=== PATIENT | male | born 1955 | race Caucasian/White ===

== ENCOUNTER 2020-05-23 10:49 | Inpatient (IN) ==
--- NOTE | 2020-05-23 11:42 | ERNOTE ---
Neuro HPI ER Record Date of Service: 05/23/20 Presenting Symptoms: confusion, falling Time Seen by Provider: 05/23/20 11:30 Source: patient, family, RN notes reviewed, past records Exam Limitations: clinical condition Immunizations: IMMUNIZATION HX Immunizations Up to Date Yes History of Influenza Vaccine No Hx Pneumococcal Vaccination Yes Allergies/Adverse Reactions: Allergies Allergy/AdvReac Type Severity Reaction Status Date / Time Penicillins Allergy Severe upper Verified 05/23/20 10:59 airway edema, hives Home Medications: HOME MEDICATIONS diphenoxylate-atropine 2.5 mg-0.025 mg tablet 2.5 mg PO QID PRN tab 07/06/18 [Last Taken Unknown] loperamide 2 mg tablet 2 mg PO Q1-4H PRN 07/06/18 [Last Taken Unknown] omeprazole 40 mg capsule,delayed release 40 mg PO DAILY 07/06/18 [Last Taken Unknown] ropinirole 3 mg tablet 3 mg PO TID 07/06/18 [Last Taken Unknown] amlodipine 5 mg tablet 5 mg PO DAILY 08/17/19 [Last Taken Unknown] magnesium citrate 100 mg tablet 100 mg PO DAILY 08/17/19 [Last Taken Unknown] Liraglutide [Victoza 2-Johnathan] 0.3 ml SQ DAILY 10/18/19 [Last Taken Unknown] Lisinopril/Hydrochlorothiazide [Lisinopril-Hctz 10-12.5 mg Tab] 1 ea PO DAILY 10/18/19 [Last Taken Unknown] cyclobenzaprine 10 mg tablet 10 mg PO QID #120 tab 03/08/20 [Last Taken Unknown] cyclobenzaprine 5 mg tablet 5 mg PO QID #120 tab 03/08/20 [Last Taken Unknown] diclofenac sodium 1 % topical gel 2 g TP QID #200 g 03/08/20 [Last Taken Unknown] naloxone 4 mg/actuation nasal spray 4 mg JAM Q2M PRN #2 ea 03/08/20 [Last Taken Unknown] pregabalin 100 mg capsule 100 mg PO TID #90 cap 03/11/20 [Last Taken Unknown] fluconazole 200 mg tablet 200 mg PO DAILY #10 tab 04/03/20 [Last Taken Unknown] aripiprazole 5 mg tablet 5 mg PO HS #30 tab 04/11/20 [Last Taken Unknown] bupropion HCl 300 mg 24 hr tablet, extended release 300 mg PO QAM #30 tab 04/11/20 [Last Taken Unknown] duloxetine 60 mg capsule,delayed release 60 mg PO BID #60 cap 04/11/20 [Last Taken Unknown] oxycodone-acetaminophen 7.5 mg-325 mg tablet 1 tab PO QID #120 tab 04/16/20 [Last Taken Unknown] dapagliflozin 10 mg tablet 10 mg PO DAILY #30 tab 04/18/20 [Last Taken Unknown] dicyclomine 10 mg capsule 20 mg PO QID #60 cap 05/09/20 [Last Taken Unknown] Topiramate [Topiramate ER] 25 mg PO DAILY 05/20/20 [Last Taken Unknown] morphine 15 mg immediate release tablet 15 mg PO TID PRN #21 tab 05/21/20 [Last Taken Unknown] - History of Present Illness Narrative: Chilango is a 64-year-old male brought to the emergency department from home by ambulance for altered mental status. He underwent a right shoulder arthroscopy with rotator cuff repair on 05/20/[address] Judd. His reports that his mentation was normal when he went home from ambulatory surgery that day. He has since become increasingly confused and has been having some falls. He did not recognize his when he woke up this morning and called her a rat. He is chronically on opiate pain medications. The states that he has not had any pain medicine since last evening. He was given Narcan by EMS with brief improvement. He is currently disoriented and uncooperative. He is unable to provide any history. Onset: gradual onset, continues in ER - Character of Deficits Additional Deficits: Present: falling Baseline Cognition: Present: alert but confused Baseline Gait: Present: walks w/o assistance Prior Treament: Reports: recently seen - surgery on 05/20, similar symptoms before - with low magnesium level Review of Systems - Narrative Narrative: Unable to obtain ROS d/t patient condition Medical History (Last Reviewed 05/23/20 @ 14:13 by Iza Heck NP) Acute kidney injury (Acute) Onset Date: Unknown Adjustment disorder with depressed mood (Acute) Onset Date: Unknown Aortic stenosis (Acute) Onset Date: Unknown Atypical chest pain (Acute) Onset Date: Unknown Fracture of hip, right, closed (Acute) Onset Date: Unknown Diabetes mellitus, type II (Chronic) Onset Date: Unknown Diarrhea (Acute) Onset Date: Unknown Facet arthropathy (Acute) Onset Date: Unknown Fracture, femur, head (Acute) Onset Date: Unknown Glaucoma (Acute) Onset Date: Unknown Gout (Acute) Onset Date: Unknown Heart murmur (Acute) Onset Date: Unknown Hyperlipidemia (Chronic) Onset Date: Unknown Hypertension (Acute) Onset Date: Unknown Iron deficiency anemia (Acute) Onset Date: Unknown Lumbago (Chronic) Onset Date: Unknown Osteoarthritis, knee (Acute) Onset Date: Unknown TOO (obstructive sleep apnea) (Acute) Onset Date: Unknown Osteoarthritis of right hip (Acute) Onset Date: Unknown Psychosis (Acute) Onset Date: Unknown Short bowel syndrome (Acute) Onset Date: Unknown Small bowel obstruction (Acute) Onset Date: Unknown Snoring (Acute) Onset Date: Unknown Subclavian steal syndrome (Acute) Onset Date: Unknown Syncope and collapse (Acute) Onset Date: Unknown Tachycardia (Acute) Onset Date: Unknown Fibromyalgia Onset Date: Unknown Surgical History: Surgical History (Last Reviewed 05/23/20 @ 14:13 by Iza Heck NP) H/O arthroscopy of left knee Onset Date: ~1977 H/O colectomy Onset Date: ~03/28/[address] Trevor Rivera H/O exploratory laparotomy Onset Date: ~08/10/[address] chester Leija H/O hernia repair Onset Date: ~1954 bilateral History of appendectomy Onset Date: Unknown History of total hip arthroplasty Onset Date: ~06/29/14 Right total hip arthroplasty per Dr Servando Coleman Hx of tonsillectomy Onset Date: Unknown Hx of total knee arthroplasty Onset Date: ~08/02/09 arthroplasty right knee unicompartmental per Dr Servando Coleman Family History: Family History (Last Reviewed 05/23/20 @ 14:13 by Iza Heck NP) Mother Diabetes Heart disease Father Diabetes Myocardial infarction Heart disease Substance abuse Brother 3-DM, HTN athritis 1-heart disease Brother 1-infant crib Son 1-arthritis, 1-healthy, 1-unknown Daughter 1-healthy, 1 OD Son 1-crib Social History: (Last Reviewed 05/23/20 @ 14:13 by Iza Heck NP) Social History: Marital status: household members: spouse current occupational status: disabled current occupation: disabled Highest level of school completed/degree received: GED or equivalent Service: Yes branch: [employer] Tobacco: Smoking Status: Current every day smoker Smoking Status comment: 1ppd or more tobacco type: cigarettes Smoking cigarettes per day: 20.0 Smoking packs per day: 1 Alcohol: alcohol intake: former alcohol intake frequency: holiday/special occasion Substance Use: substance use type: former substance user Dietary Habits: caffeine: Yes Type: carbonated beverages Physical Exam - Physical Exam General Appearance: Present: wd/wn, alert, mild distress, other - agitated, Eye Exam: PERRL: bilateral - pinpoint, EOMI: bilateral Respiratory: Present: no respiratory distress, normal breath sounds, no accessory muscle use, lungs clear Cardiovascular/Chest: Present: no murmur, normal peripheral pulses, tachycardia Gastrointestinal/Abdominal: Present: nondistended, soft Extremity Exam: Present: normal except - - Right upper extremity in immobilizer, surgical dressing in place to shoulder, normal radial pulse, fingers with brisk cap refill Neurological Exam: Present: alert, other - states "get me the fuck out of here", pulling at lines, restless. Absent: oriented, normal mood/affect Skin Exam: Present: normal color, warm/dry, other - excoriated wound present to midline lower abdomen without signs of infection Progress - Results and Orders Patient's Lab Results:: I have reviewed the patient's lab results. - Vital Signs Patient's Vital Signs:: I have reviewed the patient's vital signs. Vital Signs: Vital Signs 05/23/20 10:54 05/23/20 11:19 Temperature 36.9 C Pulse Rate 113 H 111 H Respiratory Rate 19 Blood Pressure 170/73 H O2 Sat by Pulse Oximetry 96 - EKG EKG #1 EKG: other - Sinus tach, rate 111 EKG read: Reviewed by me - CT/Ultrasound CT/Ultrasound Narrative: Head CT is without acute intracranial findings per radiologist report - Progress/Reassessment Chief Complaint: Altered Mental Status Progress:: Unchanged Plan - Plan Plan: Head CT is without acute findings, glucose in urine but blood glucose is in 200's, mildly elevated WBC and K+ slightly low at 3.3, urine drug screen positive for opiates, ETOH neg. Patient remains disoriented. Dr. Willams was contacted and agreed to admit the patient for further evaluation and monitoring. CHELSI Sullivan (orthopedics) also notified d/t the patient's surgery 3 days ago. Departure Clinical Impression: Altered mental status Qualifiers: Altered mental status type: disorientation Qualified Code(s): R41.0 - Disorientation, unspecified - Departure Disposition: Still a patient Condition: Stable Referrals: Emir Rodriguez MD [Primary Care Provider] -
[2020-05-23 12:14] LABS: Hematocrit 31.1 % (42.0-52.0); Hemoglobin 11.2 gm/dL (13.5-18.0); Mean Cell Volume 119.6 fl (78-100); Mean Corpuscular Hemoglobin 43.1 pg (27-31); Mean Platelet Volume 9.2 fl (8-11.3); NRBC# 0.1 k/mm3 (0-1); Neutrophil # 10.3 K/mm3 (1.3-6.0); Neutrophil % 81.1 % (42-75.0); Platelet Count 367 K/mm3 (150-450); Red Cell Distribution Width 14.6 % (11.5-14.0); White Blood Count 12.7 K/mm3 (4.0-10.5)
[2020-05-23 12:30] LABS: ALT 26 U/L (19-67); AST 36 U/L (0-48); Albumin * 3.3 gm/dl (3.4-5.0); Alkaline Phosphatase * 69 U/L (50-170); Anion Gap 11.8 mmol/L (6.8-13.8); BUN/Creatinine Ratio 25.8 (9.0-21.6); Bilirubin, Total 0.7 mg/dL (0.0-1.1); Blood Urea Nitrogen 33 mg/dL (6-23); Ca. Corrected For Albumin 9.3 mg/dL (8.4-10.2); Calcium * 9.1 mg/dL (7.9-10.9); Carbon Dioxide 28.5 mmol/L (24-32.6); Chloride 104 mmol/L (97-106); Glucose * 213 mg/dL (70-110); Magnesium 1.7 mg/dL (1.2-2.8); Potassium 3.3 mmol/L (3.4-4.6); Sodium 141 mmol/L (132-142); Total Protein 7.2 gm/dL (6.2-8.2)
[2020-05-23 13:15] LABS: Urine Bilirubin Negative (NEGATIVE); Urine Ketone 5 mg/dL (NEGATIVE); Urine Nitrite Negative (NEGATIVE); Urine Protein 30 mg/dL (NEGATIVE); Urine Specific Gravity 1.015 SP.GR. (1.005-1.030); Urine Urobilinogen Normal (NORMAL); Urine pH 7.5 pH (5.0-7.0)
[2020-05-23 13:26] LABS: Urine Appearance Clear (CLEAR); Urine Bacteria TRACE; Urine Blood 5 /ul (NEGATIVE); Urine Color Yellow; Urine RBC 0-5 /hpf (0-5); Urine WBC TRACE /hpf (0-5)
[2020-05-23 13:32] LABS: Cocaine Ur Negative (NEGATIVE); Urine Barbiturate Negative (NEGATIVE); Urine Benzodiazepines Negative (NEGATIVE); Urine PCP Negative (NEGATIVE); Urine THC Negative (NEGATIVE)
[2020-05-23 13:35] LABS: Urine Opiates Positive (NEGATIVE)
[2020-05-23 17:11] LABS: TSH * 0.129 uIU/mL (0.358-3.74)
[2020-05-23 17:19] LABS: Troponin I 0.256 ng/mL (0.00-0.10)
[2020-05-23] MEDS: DILTIAZEM HCL 120 MG CAP.SR.24H PO SCH (17:39)
--- NOTE | 2020-05-23 17:50 | HP ---
Chief Complaint - Chief Complaint Date of Service: 05/23/20 Chief Complaint: Confusion History of Present Illness: Chilango is a 64-year-old diabetic male brought to the emergency department from home by ambulance for altered mental status. He underwent a right shoulder arthroscopy with rotator cuff repair on 05/20/[address] Judd. His reports that his mentation was normal when he went home from ambulatory surgery that day. He takes Percocet four times daily for chronic pain. Sánchez Orellana, ortho, prescribed immediate release morphine 30 mg as needed for post op pain. He has since become increasingly confused and has been having some falls. He did not recognize his when he woke up this morning and called her a rat. The states that he has not had any pain medicine since last evening. He was given Narcan by EMS with brief improvement. In the ER he was disoriented and uncooperative. He was and is unable to provide any history. At 1730 today his nurse reported his mentation had worsened and that he had become combative. For this reason I prescribed IM as needed Haldol. He has a history of TOO and mild to moderate aortic stenosis. In June of 2018 "psychosis" was entered into his [facility] office chart problem list by a nurse. Details as yet unknown. is not present. Patient can provide no useful history. His brain CT today was unremarkable. His wbc cell count was borderline high, his potassium borderline low, his urine normal except for glucose, his hgb was borderline low, but he has chronic anemia, and his random blood sugar was a little over 200 Aside from his qid opiate, he chronically takes a long list of medications, any one of which by itself could interfere with thinking: aripiprazole, cyclobenzaprine, dicyclomine, diphenoxylate, loperamide, pregabalin, ropinirole, topiramate and trazodone. Add to that he is 64 years old and just underwent surgery with general and regional anesthetic, and this delerium is most likely multifactorial. Added to the mix is the aforementioned recent addition of immediate release morphine. We will repeat a CBC and CMP in the morning. We will check a troponin and TSH and blood gases now. We will obtain a brain MRI and an EEG. Otherwise the plan is to stop or minimize centrally acting medications and wait for his sensorium to clear, which may take three or four days. I contacted Dr. Judd who said he did not at present recommend any post op venous thrombosis prophylaxis. We will check fingerstick blood sugars. Medications which he takes believed to cause of prolong delerium: Analgesics: opiates Anticholinergics: atropine, cyclobenzaprine, bentyl, aripiprazole Anticonvulsants: pregabalin, topiramate Dopamine agonists: ropinirole GI agents: loperamide Hypnotics: trazodone So far, no sign of infection or metabolic derangements. No history of head injury. No physical evidence so far of seizures. No sign of organ failure. It is not uncommon for older hospitalized patients to develop delerium and/or with surgery and/or with anesthesia Medical History (Last Reviewed 05/23/20 @ 17:43 by Emir Rodriguez MD) Acute kidney injury (Acute) Onset Date: Unknown Adjustment disorder with depressed mood (Acute) Onset Date: Unknown Aortic stenosis (Acute) Onset Date: Unknown Atypical chest pain (Acute) Onset Date: Unknown Fracture of hip, right, closed (Acute) Onset Date: Unknown Diabetes mellitus, type II (Chronic) Onset Date: Unknown Diarrhea (Acute) Onset Date: Unknown Facet arthropathy (Acute) Onset Date: Unknown Fracture, femur, head (Acute) Onset Date: Unknown Glaucoma (Acute) Onset Date: Unknown Gout (Acute) Onset Date: Unknown Heart murmur (Acute) Onset Date: Unknown Hyperlipidemia (Chronic) Onset Date: Unknown Hypertension (Chronic) Onset Date: Unknown Iron deficiency anemia (Chronic) Onset Date: Unknown Lumbago (Chronic) Onset Date: Unknown Osteoarthritis, knee (Acute) Onset Date: Unknown TOO (obstructive sleep apnea) (Chronic) Onset Date: Unknown Osteoarthritis of right hip (Acute) Onset Date: Unknown Psychosis (Acute) Onset Date: Unknown Short bowel syndrome (Acute) Onset Date: Unknown Small bowel obstruction (Acute) Onset Date: Unknown Snoring (Acute) Onset Date: Unknown Subclavian steal syndrome (Acute) Onset Date: Unknown Syncope and collapse (Acute) Onset Date: Unknown Tachycardia (Acute) Onset Date: Unknown Fibromyalgia Onset Date: Unknown Surgical History: Surgical History (Last Reviewed 05/23/20 @ 17:43 by Emir Rodriguez MD) H/O arthroscopy of left knee Onset Date: ~1977 H/O colectomy Onset Date: ~03/28/[address] Trevor Rivera H/O exploratory laparotomy Onset Date: ~08/10/[address] chester Leija H/O hernia repair Onset Date: ~1954 bilateral History of appendectomy Onset Date: Unknown History of total hip arthroplasty Onset Date: ~06/29/14 Right total hip arthroplasty per Dr Servando Coleman Hx of tonsillectomy Onset Date: Unknown Hx of total knee arthroplasty Onset Date: ~08/02/09 arthroplasty right knee unicompartmental per Dr Servando Coleman Family History: Family History (Last Reviewed 05/23/20 @ 17:43 by Emir Rodriguez MD) Mother Diabetes Heart disease Father Diabetes Myocardial infarction Heart disease Substance abuse Brother 3-DM, HTN athritis 1-heart disease Brother 1-infant crib Son 1-arthritis, 1-healthy, 1-unknown Daughter 1-healthy, 1 OD Son 1-crib Social History: (Last Reviewed 05/23/20 @ 17:43 by Emir Rodriguez MD) Social History: Marital status: household members: spouse current occupational status: disabled current occupation: disabled Highest level of school completed/degree received: GED or equivalent Service: Yes branch: [employer] Tobacco: Smoking Status: Current every day smoker Smoking Status comment: 1ppd or more tobacco type: cigarettes Smoking cigarettes per day: 20.0 Smoking packs per day: 1 Alcohol: alcohol intake: former alcohol intake frequency: holiday/special occasion Substance Use: substance use type: former substance user Dietary Habits: caffeine: Yes Type: carbonated beverages Review Of Systems (GEN) - Review of Systems Generalized/Overall Review: Present: No Symptoms Reported - patient unable to do a review of symptoms due to delerium. Immunizations: IMMUNIZATION HX Immunizations Up to Date Yes History of Influenza Vaccine No Hx Pneumococcal Vaccination Yes Allergies/Adverse Reactions: Allergies Allergy/AdvReac Type Severity Reaction Status Date / Time Penicillins Allergy Severe upper Verified 05/23/20 17:00 airway edema, hives Home Medications: HOME MEDICATIONS diphenoxylate-atropine 2.5 mg-0.025 mg tablet 5 mg PO QID PRN tab 07/06/18 [Last Taken Unknown] loperamide 2 mg tablet 4 mg PO QID PRN 07/06/18 [Last Taken Unknown] omeprazole 40 mg capsule,delayed release 40 mg PO DAILY 07/06/18 [Last Taken Unknown] ropinirole 3 mg tablet 3 mg PO BID 07/06/18 [Last Taken Unknown] amlodipine 5 mg tablet 10 mg PO DAILY 08/17/19 [Last Taken Unknown] Liraglutide [Victoza 2-Johnathan] 0.3 ml SQ DAILY 10/18/19 [Last Taken Unknown] Lisinopril/Hydrochlorothiazide [Lisinopril-Hctz 10-12.5 mg Tab] 12.5 mg PO DAILY 10/18/19 [Last Taken Unknown] diclofenac sodium 1 % topical gel 2 g TP QID #200 g 03/08/20 [Last Taken Unknown] naloxone 4 mg/actuation nasal spray 4 mg JAM Q2M PRN #2 ea 03/08/20 [Last Taken Unknown] pregabalin 100 mg capsule 100 mg PO TID #90 cap 03/11/20 [Last Taken Unknown] fluconazole 200 mg tablet 200 mg PO DAILY #10 tab 04/03/20 [Last Taken Unknown] aripiprazole 5 mg tablet 5 mg PO HS #30 tab 04/11/20 [Last Taken Unknown] bupropion HCl 300 mg 24 hr tablet, extended release 300 mg PO QAM #30 tab 04/11/20 [Last Taken Unknown] duloxetine 60 mg capsule,delayed release 60 mg PO BID #60 cap 04/11/20 [Last Taken Unknown] oxycodone-acetaminophen 7.5 mg-325 mg tablet 1 tab PO QID #120 tab 04/16/20 [Last Taken Unknown] dicyclomine 10 mg capsule 20 mg PO QID #60 cap 05/09/20 [Last Taken Unknown] Topiramate [Topiramate ER] 25 mg PO BID 05/20/20 [Last Taken Unknown] Atorvastatin Calcium [Lipitor] 10 mg PO HS 05/23/20 [Last Taken Unknown] Banophen 25 - 50 mg PO HS PRN 05/23/20 [Last Taken Unknown] Cyclobenzaprine HCl 15 mg PO QID 05/23/20 [Last Taken Unknown] Dapagliflozin Propanediol [Farxiga] 15 mg PO QAM 05/23/20 [Last Taken Unknown] Morphine Sulfate 30 mg PO Q6H PRN 05/23/20 [Last Taken Unknown] Triamcinolone Acetonide [Kenalog 0.1% Cream] 1 appl TP TID 05/23/20 [Last Taken Unknown] predniSONE [Prednisone] 20 mg PO DAILY 05/23/20 [Last Taken Unknown] traZODone HCL [Trazodone HCl] 300 mg PO HS 05/23/20 [Last Taken Unknown] Exam - Exam Vital Signs: Vital Signs - Last Taken Temp 37.1 C 05/23/20 16:20 Pulse 106 H 05/23/20 16:24 Resp 18 05/23/20 16:24 BP 170/99 H 05/23/20 16:24 Pulse Ox 95 05/23/20 16:24 Constitutional: Present: Alert, Well developed, Other - intermittently combative, Obese. Absent: Oriented x3, Cooperative ENT Exam: Present: normal ENT inspection, hearing grossly normal Eye Exam: bilateral eye: normal inspection Neck: Present: normal inspection. Absent: lymphadenopathy (R), lymphadenopathy (L), thyromegaly Back Exam: Present: normal inspection, no CVA tenderness, no vertebral tendernes s Breasts: Present: Other - male Respiratory: Present: lungs clear, no respiratory distress Cardiovascular/Chest: Present: regular rate, rhythm, no gallop, no JVD, no murmur, tachycardia Peripheral Pulses: carotid (R): 1+, carotid (L): 1+ Abdomen: Present: Normal bowel sounds, soft, nontender, nondistended, no hepatospenomegaly, no masses, obese /Rectal: Present: Exam deferred Extremity: Present: normal inspection, normal capillary refill, other - dressing right shoulder Skin Exam: Present: normal color, warm/dry, no cyanosis Lymphatic: Present: no adenopathy Neurologic: Absent: normal mood/affect Appearance: Present: appropriate appearance, neat. Absent: appropriate insight Eye contact: Absent: cooperative, good eye contact, normal speech Thoughts: Present: auditory hallucinations, visual hallucinations, other - he is totally disoriented X3 Diagnostic Studies: Abnormal Lab Results 05/23/20 05/23/20 05/23/20 Range/Units 12:07 12:07 12:57 WBC 12.7 H (4.0-10.5) K/mm3 RBC 2.60 L (4.7-6.0) M/mm3 Hgb 11.2 L (13.5-18.0) gm/dL Hct 31.1 L (42.0-52.0) % MCV 119.6 H (78-100) fl MCH 43.1 H (27-31) pg RDW 14.6 H (11.5-14.0) % Immature Gran % (Auto) 1.10 H (0.001-0.429) % Immature Gran # (Auto) 0.14 H (0.000-0.0310) K/mm3 Neutrophils % 81.1 H (42-75.0) % Lymphocytes % 11.6 L (20-51) % Neutrophils # 10.3 H (1.3-6.0) K/mm3 Lymphocytes # 1.47 L (1.5-3.5) k/mm3 pO2 (83.0-108.0) mmHg HCO3 (21.0-28.0) mmol/L Total CO2 (19.0-24.0) mmol/L Base Excess (-2.0-3.0) mmol/L ABG O2 Sat (Measured) (94.0-98.0) % Plasma Sodium 143 H (130-142) mmol/L Potassium 3.3 L (3.4-4.6) mmol/L BUN 33 H (6-23) mg/dL BUN/Creatinine Ratio 25.8 H (9.0-21.6) Random Glucose 213 H (70-110) mg/dL Troponin I (0.00-0.10) ng/mL Albumin 3.3 L (3.4-5.0) gm/dl TSH (0.358-3.74) uIU/mL Urine Protein 30 H (NEGATIVE) mg/dL Urine Glucose (UA) >=1000 H (NEGATIVE) mg/dL Urine Blood 5 H (NEGATIVE) /ul Urine Opiates Screen (NEGATIVE) 05/23/20 05/23/20 05/23/20 Range/Units 12:57 16:30 16:30 WBC (4.0-10.5) K/mm3 RBC (4.7-6.0) M/mm3 Hgb (13.5-18.0) gm/dL Hct (42.0-52.0) % MCV (78-100) fl MCH (27-31) pg RDW (11.5-14.0) % Immature Gran % (Auto) (0.001-0.429) % Immature Gran # (Auto) (0.000-0.0310) K/mm3 Neutrophils % (42-75.0) % Lymphocytes % (20-51) % Neutrophils # (1.3-6.0) K/mm3 Lymphocytes # (1.5-3.5) k/mm3 pO2 53.7 L (83.0-108.0) mmHg HCO3 29.5 H (21.0-28.0) mmol/L Total CO2 30.8 H (19.0-24.0) mmol/L Base Excess 5.0 H (-2.0-3.0) mmol/L ABG O2 Sat (Measured) 89.2 L (94.0-98.0) % Plasma Sodium (130-142) mmol/L Potassium (3.4-4.6) mmol/L BUN (6-23) mg/dL BUN/Creatinine Ratio (9.0-21.6) Random Glucose (70-110) mg/dL Troponin I 0.256 H* (0.00-0.10) ng/mL Albumin (3.4-5.0) gm/dl TSH 0.129 L (0.358-3.74) uIU/mL Urine Protein (NEGATIVE) mg/dL Urine Glucose (UA) (NEGATIVE) mg/dL Urine Blood (NEGATIVE) /ul Urine Opiates Screen Positive H (NEGATIVE) Laboratory Results WBC 12.7 K/mm3 (4.0-10.5) H 05/23/20 12:07 RBC 2.60 M/mm3 (4.7-6.0) L 05/23/20 12:07 Hgb 11.2 gm/dL (13.5-18.0) L 05/23/20 12:07 Hct 31.1 % (42.0-52.0) L 05/23/20 12:07 MCV 119.6 fl (78-100) H 05/23/20 12:07 MCH 43.1 pg (27-31) H 05/23/20 12:07 MCHC 36.0 g/dl (32-36) 05/23/20 12:07 RDW 14.6 % (11.5-14.0) H 05/23/20 12:07 Plt Count 367 K/mm3 (150-450) 05/23/20 12:07 MPV 9.2 fl (8-11.3) 05/23/20 12:07 Immature Gran % (Auto) 1.10 % (0.001-0.429) H 05/23/20 12:07 Immature Gran # (Auto) 0.14 K/mm3 (0.000-0.0310) H 05/23/20 12:07 Neutrophils % 81.1 % (42-75.0) H 05/23/20 12:07 Lymphocytes % 11.6 % (20-51) L 05/23/20 12:07 Monocytes % 5.0 % (0.0-9) 05/23/20 12:07 Eosinophils % 0.8 % (0.0-3.0) 05/23/20 12:07 Basophils % 0.4 % (0.0-1.0) 05/23/20 12:07 Nucleated RBC % 0.1 k/mm3 (0-1) 05/23/20 12:07 Neutrophils # 10.3 K/mm3 (1.3-6.0) H 05/23/20 12:07 Lymphocytes # 1.47 k/mm3 (1.5-3.5) L 05/23/20 12:07 Monocytes # 0.6 k/mm3 (0.0-1.0) 05/23/20 12:07 Eosinophils # 0.1 k/mm3 (0.0-0.7) 05/23/20 12:07 Absolute Basophils 0.1 k/mm3 (0.0-0.1) 05/23/20 12:07 pCO2 43.3 mmHg (35.0-48.0) 05/23/20 16:30 pO2 53.7 mmHg (83.0-108.0) L 05/23/20 16:30 HCO3 29.5 mmol/L (21.0-28.0) H 05/23/20 16:30 Total CO2 30.8 mmol/L (19.0-24.0) H 05/23/20 16:30 Base Excess 5.0 mmol/L (-2.0-3.0) H 05/23/20 16:30 ABG pH 7.45 (7.35-7.45) 05/23/20 16:30 ABG O2 Sat (Measured) 89.2 % (94.0-98.0) L 05/23/20 16:30 Sodium 141 mmol/L (132-142) 05/23/20 12:07 Plasma Sodium 143 mmol/L (130-142) H 05/23/20 12:07 Potassium 3.3 mmol/L (3.4-4.6) L 05/23/20 12:07 Chloride 104 mmol/L (97-106) 05/23/20 12:07 Carbon Dioxide 28.5 mmol/L (24-32.6) 05/23/20 12:07 Anion Gap 11.8 mmol/L (6.8-13.8) 05/23/20 12:07 BUN 33 mg/dL (6-23) H 05/23/20 12:07 Creatinine 1.28 mg/dL (0.4-1.4) 05/23/20 12:07 Est GFR (Non-Af Amer) 60 mL/min (60-130) D 05/23/20 12:07 BUN/Creatinine Ratio 25.8 (9.0-21.6) H 05/23/20 12:07 Random Glucose 213 mg/dL (70-110) H 05/23/20 12:07 Lactic Acid, Venous 0.8 mmol/L (0.4-2.0) 05/23/20 12:07 Calcium 9.1 mg/dL (7.9-10.9) 05/23/20 12:07 Calcium Adj for Albumin 9.3 mg/dL (8.4-10.2) 05/23/20 12:07 Magnesium 1.7 mg/dL (1.2-2.8) 05/23/20 12:07 Total Bilirubin 0.7 mg/dL (0.0-1.1) 05/23/20 12:07 AST 36 U/L (0-48) 05/23/20 12:07 ALT 26 U/L (19-67) 05/23/20 12:07 Alkaline Phosphatase 69 U/L (50-170) 05/23/20 12:07 Troponin I 0.256 ng/mL (0.00-0.10) H* 05/23/20 16:30 Total Protein 7.2 gm/dL (6.2-8.2) 05/23/20 12:07 Albumin 3.3 gm/dl (3.4-5.0) L 05/23/20 12:07 TSH 0.129 uIU/mL (0.358-3.74) L 05/23/20 16:30 Urine Color Yellow 05/23/20 12:57 Urine Appearance Clear (CLEAR) 05/23/20 12:57 Urine pH 7.5 pH (5.0-7.0) 05/23/20 12:57 Ur Specific Revere 1.015 SP.GR. (1.005-1.030) 05/23/20 12:57 Urine Protein 30 mg/dL (NEGATIVE) H 05/23/20 12:57 Urine Glucose (UA) >=1000 mg/dL (NEGATIVE) H 05/23/20 12:57 Urine Ketones 5 mg/dL (NEGATIVE) 05/23/20 12:57 Urine Blood 5 /ul (NEGATIVE) H 05/23/20 12:57 Urine Nitrate Negative (NEGATIVE) 05/23/20 12:57 Urine Bilirubin Negative mg/dl (NEGATIVE) 05/23/20 12:57 Urine Urobilinogen Normal EU/dl (NORMAL) 05/23/20 12:57 Ur Leukocyte Esterase Negative /ul (NEGATIVE) 05/23/20 12:57 Urine RBC 0-5 /hpf (0-5) 05/23/20 12:57 Urine WBC Trace /hpf (0-5) 05/23/20 12:57 Ur Epithelial Cells Trace /hpf (0-5) 05/23/20 12:57 Urine Bacteria Trace (NONE) 05/23/20 12:57 Urine Culture Comments No culture indicated 05/23/20 12:57 Urine Opiates Screen Positive (NEGATIVE) H 05/23/20 12:57 Barbiturate Screen Negative (NEGATIVE) 05/23/20 12:57 Ur Phencyclidine Scrn Negative (NEGATIVE) 05/23/20 12:57 Urine Amphetamine Negative (NEGATIVE) 05/23/20 12:57 U Benzodiazepines Scrn Negative (NEGATIVE) 05/23/20 12:57 Urine Cocaine Screen Negative (NEGATIVE) 05/23/20 12:57 Urine Marijuana (THC) Negative (NEGATIVE) 05/23/20 12:57 Ethyl Alcohol Less than 3.0 mg/dL (0.0-10.0) 05/23/20 12:07 SARS-CoV-2 (PCR) Not detected (NotDetected) 05/23/20 14:17 Assessment/Plan - Assessment/Plan (1) Acute delirium Assessment: MRI brain. EEG. follow labs. minimize meds. as needed Haldol because he is combative wait for sensorium to clear his delirium diagnosis is characterized by: disturbed attention and awareness has developed over a couple of days disorientation no other explanation obvious at present from his history, may be due to medications in the context of an elderly man who has just had surgery. intermittent beligerent hyperactivity at 1830 today, by phone call between one of his daughters and his nurse, he has had "similar problems" in the past. he had "psychosis" in 2015 or 16 because "[facility] removed all of his medications at onc". he has not done well with some of his past surgeries. one of his daughters has delirium if she receives Versed, and he received Versed for this surgery. Problem: Acute (2) Toxic encephalopathy Assessment: most likely related to medications one way or another Problem: Acute (3) Aftercare following right shoulder joint replacement surgery Problem: Acute (4) Polypharmacy Assessment: minimize centrally acting medications Problem: Chronic (5) Chronically on opiate therapy Assessment: with the recent addition of immediate release morphine. will decrease the total dose of opiate and use tylenol for incidental pain. Problem: Chronic (6) Diabetes mellitus, type II Assessment: we will monitor fingerstick blood sugars. Problem: Chronic Qualifiers: Diabetes mellitus terminal press operator insulin use: without terminal press operator use (7) Hypertension Assessment: heart rate a little fast. 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
[2020-05-23] MEDS: HALOPERIDOL LACTATE 5 MG/ML VIAL IM PRN ×3 (17:53→22:27)
[2020-05-23] MEDS: oxyCODONE HCL/ACETAMINOPHEN 1 TAB TABLET PO PRN (19:35)
[2020-05-24] MEDS: HALOPERIDOL LACTATE 5 MG/ML VIAL IM PRN ×2 (00:56→09:02)
[2020-05-24] MEDS: ACETAMINOPHEN 325 MG TABLET PO PRN ×3 (01:00→19:11)
[2020-05-24] MEDS ORDERED: METOPROLOL TARTRATE 25 MG TABLET PO ONE (01:53)
[2020-05-24] MEDS: oxyCODONE HCL/ACETAMINOPHEN 1 TAB TABLET PO PRN (03:35)
[2020-05-24 06:29] LABS: Hematocrit 36.5 % (42.0-52.0); Hemoglobin 13.1 gm/dL (13.5-18.0); Mean Cell Volume 118.9 fl (78-100); Mean Corpuscular Hemoglobin 42.7 pg (27-31); Mean Corpuscular Hgb Conc 35.9 g/dl (32-36); Mean Platelet Volume 8.8 fl (8-11.3); NRBC# 0.1 k/mm3 (0-1); Neutrophil # 11.1 K/mm3 (1.3-6.0); Neutrophil % 74.1 % (42-75.0); Platelet Count 386 K/mm3 (150-450); Red Blood Count 3.07 M/mm3 (4.7-6.0); Red Cell Distribution Width 14.5 % (11.5-14.0); White Blood Count 14.9 K/mm3 (4.0-10.5)
[2020-05-24 06:46] LABS: BUN/Creatinine Ratio 17.1 (9.0-21.6); Estimated Creat Clear 52.6
[2020-05-24 06:50] LABS: Troponin I 0.98 ng/mL (0.00-0.10)
--- NOTE | 2020-05-24 07:49 | PN ---
Subjective - Date and Time Seen Date: 05/24/20 Time: 06:30 Subjective Narrative: Date of Service: 05/23/20 Chief Complaint: Confusion History of Present Illness: Chilango is a 64-year-old diabetic male brought to the emergency department from home by ambulance yesterday for altered mental status. He underwent a right shoulder arthroscopy with rotator cuff repair on 05/20/[address] Judd. His reported that his mentation was normal when he went home from ambulatory surgery that day. He chronically takes Percocet four times daily for chronic pain. Sánchez Orellana, ortho, prescribed immediate release morphine 30 mg as needed for post op pain. He has since become increasingly confused and has been having some falls. He did not recognize his when he woke up this morning and called her a rat. This morning he knew who he is, who I am and that he is in the hospital in [facility]. He doesn't know the day, the time of day or the date. He doesn't know why he is in the hospital. The stated that he has not had any pain medicine since last evening. He was given Narcan by EMS with brief improvement. In the ER he was disoriented and uncooperative. He was and is unable to provide any history. Last evening he become combative. For this reason I prescribed IM as needed Haldol. He has a history of TOO and mild to moderate aortic stenosis. By telephone this morning his daughter reported he had a similar episode in 2010 while doing some work. It apparently occured suddenly without any provocation. It resulted in hospitalization for 2 weeks at the [facility]. The only thing found then was subclavian steal syndrome. It is unlikely that the subclavian steal resulted in delirium. His brain CT yesterday was unremarkable. His wbc cell count was about 12, 000 and today about 14,000, his potassium was 3 this morning so we will add oral potassium, his urine normal except for glucose, his hgb is borderline low, but he has chronic anemia, and his serum glucose this morning was 218. Blood culture from yesterday is pending. I noticed he hasn't had a CXR yet, so we will do that now. His troponin has steadily increased since yesterday, but his EKGs are stable, and none show infarct or ischemia. He has moderate aortic valve stenosis and presumably CAD, either one of which could elevate troponin. We will continue to follow troponin and EKG. Aside from his qid opiate, he chronically takes a long list of medications, any one of which by itself could interfere with thinking: aripiprazole, cyclobenzaprine, dicyclomine, diphenoxylate, loperamide, pregabalin, ropinirole, topiramate and trazodone. Add to that he is 64 years old and just underwent surgery with general and regional anesthetic, and this delerium is most likely multifactorial. Added to the mix is the aforementioned recent addition of immediate release morphine. Finally, he had an unexplained similar episode in 2010. We will repeat a CBC, troponin, EKG and CMP in the morning. pO2 was slightly low yesterday but because of his agitation he won't leave either supplemental O2 or ink blender in place. We will obtain a brain MRI with anesthesia sedation and an EEG. Otherwise the plan is to stop or minimize centrally acting medications and wait for his sensorium to clear, which may take three or four days. We will add low dose long acting insulin. We will continue to check fingerstick blood sugars. He continues to have moderately severe delirium with agitation and combativeness. We don't yet have a firm reason for this problem. He is absolutely unsafe to be at home at the present time. It will probably take at least 3-4 days for this to clear. In 2010 it took two weeks to clear. Medications which he takes believed to cause of prolong delerium: Analgesics: opiates Anticholinergics: atropine, cyclobenzaprine, bentyl, aripiprazole Anticonvulsants: pregabalin, topiramate Dopamine agonists: ropinirole GI agents: loperamide Hypnotics: trazodone So far, no sign of infection or metabolic derangements. No history of head injury. No physical evidence so far of seizures. No sign of organ failure. It is not uncommon for older hospitalized patients to develop delerium and/or with surgery and/or with anesthesia Objective - Review of Systems Generalized/Overall Review: Reports: No Symptoms Reported - useless as a historian because of his delirium - Vitals Vitals: Last Vital Signs Temp 37.0 C 05/24/20 07:00 Pulse 82 05/24/20 07:00 Resp 20 05/24/20 07:00 BP 156/88 H 05/24/20 07:00 Pulse Ox 94 05/24/20 07:00 - Abnormal Lab Findings Abnormal Lab Findings: Abnormal Lab Results 05/23/20 05/23/20 05/23/20 Range/Units 12:07 12:07 12:57 WBC 12.7 H (4.0-10.5) K/mm3 RBC 2.60 L (4.7-6.0) M/mm3 Hgb 11.2 L (13.5-18.0) gm/dL Hct 31.1 L (42.0-52.0) % MCV 119.6 H (78-100) fl MCH 43.1 H (27-31) pg RDW 14.6 H (11.5-14.0) % Immature Gran % (Auto) 1.10 H (0.001-0.429) % Immature Gran # (Auto) 0.14 H (0.000-0.0310) K/mm3 Neutrophils % 81.1 H (42-75.0) % Lymphocytes % 11.6 L (20-51) % Neutrophils # 10.3 H (1.3-6.0) K/mm3 Lymphocytes # 1.47 L (1.5-3.5) k/mm3 Monocytes # (0.0-1.0) k/mm3 pO2 (83.0-108.0) mmHg HCO3 (21.0-28.0) mmol/L Total CO2 (19.0-24.0) mmol/L Base Excess (-2.0-3.0) mmol/L ABG O2 Sat (Measured) (94.0-98.0) % Plasma Sodium 143 H (130-142) mmol/L Potassium 3.3 L (3.4-4.6) mmol/L Anion Gap (6.8-13.8) mmol/L BUN 33 H (6-23) mg/dL Est GFR (Non-Af Amer) (60-130) mL/min BUN/Creatinine Ratio 25.8 H (9.0-21.6) Random Glucose 213 H (70-110) mg/dL Troponin I (0.00-0.10) ng/mL Albumin 3.3 L (3.4-5.0) gm/dl TSH (0.358-3.74) uIU/mL Urine Protein 30 H (NEGATIVE) mg/dL Urine Glucose (UA) >=1000 H (NEGATIVE) mg/dL Urine Blood 5 H (NEGATIVE) /ul Urine Opiates Screen (NEGATIVE) 05/23/20 05/23/20 05/23/20 Range/Units 12:57 16:30 16:30 WBC (4.0-10.5) K/mm3 RBC (4.7-6.0) M/mm3 Hgb (13.5-18.0) gm/dL Hct (42.0-52.0) % MCV (78-100) fl MCH (27-31) pg RDW (11.5-14.0) % Immature Gran % (Auto) (0.001-0.429) % Immature Gran # (Auto) (0.000-0.0310) K/mm3 Neutrophils % (42-75.0) % Lymphocytes % (20-51) % Neutrophils # (1.3-6.0) K/mm3 Lymphocytes # (1.5-3.5) k/mm3 Monocytes # (0.0-1.0) k/mm3 pO2 53.7 L (83.0-108.0) mmHg HCO3 29.5 H (21.0-28.0) mmol/L Total CO2 30.8 H (19.0-24.0) mmol/L Base Excess 5.0 H (-2.0-3.0) mmol/L ABG O2 Sat (Measured) 89.2 L (94.0-98.0) % Plasma Sodium (130-142) mmol/L Potassium (3.4-4.6) mmol/L Anion Gap (6.8-13.8) mmol/L BUN (6-23) mg/dL Est GFR (Non-Af Amer) (60-130) mL/min BUN/Creatinine Ratio (9.0-21.6) Random Glucose (70-110) mg/dL Troponin I 0.256 H* (0.00-0.10) ng/mL Albumin (3.4-5.0) gm/dl TSH 0.129 L (0.358-3.74) uIU/mL Urine Protein (NEGATIVE) mg/dL Urine Glucose (UA) (NEGATIVE) mg/dL Urine Blood (NEGATIVE) /ul Urine Opiates Screen Positive H (NEGATIVE) 05/23/20 05/24/20 05/24/20 Range/Units 22:50 06:25 06:25 WBC 14.9 H (4.0-10.5) K/mm3 RBC 3.07 L (4.7-6.0) M/mm3 Hgb 13.1 L (13.5-18.0) gm/dL Hct 36.5 L (42.0-52.0) % MCV 118.9 H (78-100) fl MCH 42.7 H (27-31) pg RDW 14.5 H (11.5-14.0) % Immature Gran % (Auto) 0.70 H (0.001-0.429) % Immature Gran # (Auto) 0.10 H (0.000-0.0310) K/mm3 Neutrophils % (42-75.0) % Lymphocytes % 17.3 L (20-51) % Neutrophils # 11.1 H (1.3-6.0) K/mm3 Lymphocytes # (1.5-3.5) k/mm3 Monocytes # 1.1 H (0.0-1.0) k/mm3 pO2 (83.0-108.0) mmHg HCO3 (21.0-28.0) mmol/L Total CO2 (19.0-24.0) mmol/L Base Excess (-2.0-3.0) mmol/L ABG O2 Sat (Measured) (94.0-98.0) % Plasma Sodium 144 H (130-142) mmol/L Potassium 3.0 L (3.4-4.6) mmol/L Anion Gap 16.0 H (6.8-13.8) mmol/L BUN 24 H (6-23) mg/dL Est GFR (Non-Af Amer) 54 L (60-130) mL/min BUN/Creatinine Ratio (9.0-21.6) Random Glucose 218 H (70-110) mg/dL Troponin I 0.602 H* 0.980 H* (0.00-0.10) ng/mL Albumin (3.4-5.0) gm/dl TSH (0.358-3.74) uIU/mL Urine Protein (NEGATIVE) mg/dL Urine Glucose (UA) (NEGATIVE) mg/dL Urine Blood (NEGATIVE) /ul Urine Opiates Screen (NEGATIVE) - Exam Constitutional: Present: Alert, Well developed, Elderly, Obese. Absent: Oriented x3 ENT Exam: Present: normal ENT inspection, hearing grossly normal Neck: Present: normal inspection. Absent: lymphadenopathy (R), lymphadenopathy (L) Breasts: Present: Other - male Respiratory: Present: lungs clear, no respiratory distress Cardiovascular/Chest: Present: regular rate, rhythm, no edema, no gallop, no JVD, no murmur, tachycardia Abdomen: Present: Normal bowel sounds, soft, nontender, nondistended, no hepatospenomegaly, no masses, obese /Rectal: Present: Exam deferred Extremity: Present: normal inspection, normal capillary refill Skin Exam: Present: normal color, warm/dry, no cyanosis Lymphatic: Present: no adenopathy Neurologic: Absent: normal mood/affect Appearance: Present: appropriate appearance, neat. Absent: appropriate insight, no memory impairment Eye contact: Absent: cooperative, good eye contact, normal speech Thoughts: Present: other - knew me and who he was this morning. knew he was in the [facility]. didn't know the day, date, how long he's been here or why he is here.. Absent: normal mood /affect Assessment/Plan - Problems/Diagnosis (1) Acute delirium Problem: Acute Narrative: MRI EEG monitor labs continue with decreased medication monitor for safety Haldol as needed. UA ok. Blood culture pending. wbc count slightly elevated, will do CXR. because of low potassium will add oral supplement. because of slightly elevated rising troponin but non acute EKGs we will continue to monitor troponin and EKG (2) Subclavian steal syndrome Problem: Chronic Narrative: symptoms are not typical for subclavian steal syndrome (3) Toxic encephalopathy Problem: Acute (4) Aftercare following right shoulder joint replacement surgery Problem: Acute (5) Polypharmacy Problem: Chronic (6) Chronically on opiate therapy Problem: Chronic (7) Diabetes mellitus, type II Problem: Chronic Qualifiers: Diabetes mellitus watermelon inspector insulin use: without halfway use (8) Hypertension Problem: Chronic Qualifiers: Hypertension type: essential hypertension Qualified Code(s): I10 - Essential (primary) hypertension (9) BMI 31.0-31.9,adult Problem: Chronic (10) TOO (obstructive sleep apnea) Problem: Chronic (11) Short bowel syndrome Problem: Chronic (12) Tobacco abuse Problem: Chronic (13) Iron deficiency anemia Problem: Chronic Qualifiers: Iron deficiency anemia type: unspecified iron deficiency Qualified Code(s): D50.9 - Iron deficiency anemia, unspecified
[2020-05-24] MEDS: ENOXAPARIN SODIUM 40 MG/0.4 ML SYRG SC SCH (08:03)
[2020-05-24] MEDS: POTASSIUM CHLORIDE 20 MEQ TABLET.SA PO SCH (08:04)
[2020-05-24] MEDS: LISINOPRIL 10 MG TABLET PO SCH (08:04)
[2020-05-24] MEDS: PANTOPRAZOLE SODIUM 40 MG TABLET.EC PO SCH (08:04)
[2020-05-24] MEDS: buPROPion HCL 150 MG TAB.SR.24H PO SCH (08:05)
[2020-05-24] MEDS: INSULIN GLARGINE,HUM.REC.ANLOG 100 UNITS/ML VIAL SC SCH ×2 (08:07→19:52)
[2020-05-24] MEDS ORDERED: ASPIRIN 81 MG TAB.CHEW PO ONE (09:30)
[2020-05-24] MEDS ORDERED: NITROGLYCERIN 0.4 MG/TAB BTL SL PRN (09:31)
[2020-05-24] MEDS ORDERED: LORazepam 2 MG/ML DISP.SYRIN IV PRN (09:43)
[2020-05-24] MEDS ORDERED: HYDROmorphone HCL 1 MG/ML DISP.SYRIN IV PRN (09:43)
--- NOTE | 2020-05-24 10:00 | PN ---
Nely Note - Interim Date: 05/24/20 Time: 09:49 Narrative: 05/24/20 09:49 Came over to see him because his nurse called me and reported he was having severe left anterior chest pain, otherwise not well described. He remains an extremely poor historian. I ordered as needed s.l. nitroglycerin, one baby aspirin, a stat EKG, troponin and D-Dimer. D-Dimer unfortunately may be elevated because of his recent shoulder surgery. By the time I walked over here, he was no longer complaining of chest pain or pain anywhere. He didn't remember having had this morning's chest pain. Since admission to the hospital, he as had three slowly increasing troponin levels, all still less than 1, but his EKGs have been stable, showing mainly tachycardia and occasional PVCs. His EKGs have so far not looked like ischemia or infarct. Troponin and D-dimer from just now are still pending. He has a history of atypical chest pain in the past. Also in a daughter's report to a nurse early this morning, he has intolerance to morphine, which in the past caused mental status changes resulting in a 5 day hospitalization. This morphine information was not reported to us until that phone call this morning. Also, on exam this morning, he appears to have developed tardive dyskinesia, most likely related to Haldol. We will not give further doses of major tranquilizers and switch to benzodiazepines. Except for the motion disorder, physical exam just now remains stable. CXR from this morning is unremarkable. For severe chest pain we will give as needed IV dilaudid. Because his chest pain went away on its own, although he received a baby aspirin, he did not require nitroglycerin.
--- NOTE | 2020-05-24 10:06 | PN ---
Subjective - Date and Time Seen Date: 05/24/20 Time: 09:30 Objective - Vitals Vitals: Last Vital Signs Temp 37.0 C 05/24/20 07:00 Pulse 82 05/24/20 08:04 Resp 20 05/24/20 07:00 BP 156/88 H 05/24/20 08:04 Pulse Ox 94 05/24/20 07:00 Vitals reviewed and are stable. No fever. pulse in the 80s, lowest it's been since admission. BP slightly high. Pulse ox 94 on room air. - Abnormal Lab Findings Abnormal Lab Findings: Abnormal Lab Results 05/23/20 05/23/20 05/23/20 Range/Units 12:07 12:07 12:57 WBC 12.7 H (4.0-10.5) K/mm3 RBC 2.60 L (4.7-6.0) M/mm3 Hgb 11.2 L (13.5-18.0) gm/dL Hct 31.1 L (42.0-52.0) % MCV 119.6 H (78-100) fl MCH 43.1 H (27-31) pg RDW 14.6 H (11.5-14.0) % Immature Gran % (Auto) 1.10 H (0.001-0.429) % Immature Gran # (Auto) 0.14 H (0.000-0.0310) K/mm3 Neutrophils % 81.1 H (42-75.0) % Lymphocytes % 11.6 L (20-51) % Neutrophils # 10.3 H (1.3-6.0) K/mm3 Lymphocytes # 1.47 L (1.5-3.5) k/mm3 Monocytes # (0.0-1.0) k/mm3 pO2 (83.0-108.0) mmHg HCO3 (21.0-28.0) mmol/L Total CO2 (19.0-24.0) mmol/L Base Excess (-2.0-3.0) mmol/L ABG O2 Sat (Measured) (94.0-98.0) % Plasma Sodium 143 H (130-142) mmol/L Potassium 3.3 L (3.4-4.6) mmol/L Anion Gap (6.8-13.8) mmol/L BUN 33 H (6-23) mg/dL Est GFR (Non-Af Amer) (60-130) mL/min BUN/Creatinine Ratio 25.8 H (9.0-21.6) Random Glucose 213 H (70-110) mg/dL Troponin I (0.00-0.10) ng/mL Albumin 3.3 L (3.4-5.0) gm/dl TSH (0.358-3.74) uIU/mL Urine Protein 30 H (NEGATIVE) mg/dL Urine Glucose (UA) >=1000 H (NEGATIVE) mg/dL Urine Blood 5 H (NEGATIVE) /ul Urine Opiates Screen (NEGATIVE) 05/23/20 05/23/20 05/23/20 Range/Units 12:57 16:30 16:30 WBC (4.0-10.5) K/mm3 RBC (4.7-6.0) M/mm3 Hgb (13.5-18.0) gm/dL Hct (42.0-52.0) % MCV (78-100) fl MCH (27-31) pg RDW (11.5-14.0) % Immature Gran % (Auto) (0.001-0.429) % Immature Gran # (Auto) (0.000-0.0310) K/mm3 Neutrophils % (42-75.0) % Lymphocytes % (20-51) % Neutrophils # (1.3-6.0) K/mm3 Lymphocytes # (1.5-3.5) k/mm3 Monocytes # (0.0-1.0) k/mm3 pO2 53.7 L (83.0-108.0) mmHg HCO3 29.5 H (21.0-28.0) mmol/L Total CO2 30.8 H (19.0-24.0) mmol/L Base Excess 5.0 H (-2.0-3.0) mmol/L ABG O2 Sat (Measured) 89.2 L (94.0-98.0) % Plasma Sodium (130-142) mmol/L Potassium (3.4-4.6) mmol/L Anion Gap (6.8-13.8) mmol/L BUN (6-23) mg/dL Est GFR (Non-Af Amer) (60-130) mL/min BUN/Creatinine Ratio (9.0-21.6) Random Glucose (70-110) mg/dL Troponin I 0.256 H* (0.00-0.10) ng/mL Albumin (3.4-5.0) gm/dl TSH 0.129 L (0.358-3.74) uIU/mL Urine Protein (NEGATIVE) mg/dL Urine Glucose (UA) (NEGATIVE) mg/dL Urine Blood (NEGATIVE) /ul Urine Opiates Screen Positive H (NEGATIVE) 05/23/20 05/24/20 05/24/20 Range/Units 22:50 06:25 06:25 WBC 14.9 H (4.0-10.5) K/mm3 RBC 3.07 L (4.7-6.0) M/mm3 Hgb 13.1 L (13.5-18.0) gm/dL Hct 36.5 L (42.0-52.0) % MCV 118.9 H (78-100) fl MCH 42.7 H (27-31) pg RDW 14.5 H (11.5-14.0) % Immature Gran % (Auto) 0.70 H (0.001-0.429) % Immature Gran # (Auto) 0.10 H (0.000-0.0310) K/mm3 Neutrophils % (42-75.0) % Lymphocytes % 17.3 L (20-51) % Neutrophils # 11.1 H (1.3-6.0) K/mm3 Lymphocytes # (1.5-3.5) k/mm3 Monocytes # 1.1 H (0.0-1.0) k/mm3 pO2 (83.0-108.0) mmHg HCO3 (21.0-28.0) mmol/L Total CO2 (19.0-24.0) mmol/L Base Excess (-2.0-3.0) mmol/L ABG O2 Sat (Measured) (94.0-98.0) % Plasma Sodium 144 H (130-142) mmol/L Potassium 3.0 L (3.4-4.6) mmol/L Anion Gap 16.0 H (6.8-13.8) mmol/L BUN 24 H (6-23) mg/dL Est GFR (Non-Af Amer) 54 L (60-130) mL/min BUN/Creatinine Ratio (9.0-21.6) Random Glucose 218 H (70-110) mg/dL Troponin I 0.602 H* 0.980 H* (0.00-0.10) ng/mL Albumin (3.4-5.0) gm/dl TSH (0.358-3.74) uIU/mL Urine Protein (NEGATIVE) mg/dL Urine Glucose (UA) (NEGATIVE) mg/dL Urine Blood (NEGATIVE) /ul Urine Opiates Screen (NEGATIVE) Assessment/Plan - Problems/Diagnosis (1) Chest pain Problem: Acute Qualifiers: Chest pain type: unspecified Qualified Code(s): R07.9 - Chest pain, unspecified Narrative: left sided anterior. gone now. history of atypical chest pain. if there is clear evidence for ischemia or infarct, we will transfer to a hospital with a assistant branch operations manager. we will give aspirin daily. he is an extremely poor historian. (2) Tardive dyskinesia Problem: Acute Narrative: I noticed lip smacking and other facial movements when I came over this morning, most likely related to haldol. Will switch from major tranquilizers to benzodiazepines. (3) Acute delirium Problem: Acute (4) Subclavian steal syndrome Problem: Chronic (5) Toxic encephalopathy Problem: Acute (6) Aftercare following right shoulder joint replacement surgery Problem: Acute (7) Polypharmacy Problem: Chronic (8) Chronically on opiate therapy Problem: Chronic (9) Diabetes mellitus, type II Problem: Chronic Qualifiers: Diabetes mellitus long chain quiller tender insulin use: without long chain quiller tender use (10) Hypertension Problem: Chronic Qualifiers: Hypertension type: essential hypertension Qualified Code(s): I10 - Essential (primary) hypertension (11) BMI 31.0-31.9,adult Problem: Chronic (12) TOO (obstructive sleep apnea) Problem: Chronic (13) Short bowel syndrome Problem: Chronic (14) Tobacco abuse Problem: Chronic (15) Iron deficiency anemia Problem: Chronic Qualifiers: Iron deficiency anemia type: unspecified iron deficiency Qualified Code(s): D50.9 - Iron deficiency anemia, unspecified
[2020-05-24] MEDS ORDERED: HYDROmorphone HCL 1 MG/ML DISP.SYRIN IM PRN (10:27)
--- NOTE | 2020-05-24 10:35 | PN ---
Nely Note - Interim Date: 05/24/20 Time: 10: Narrative: 05/24/20 10:31 Not having chest pain. Diaphoretic. Because of his delirium I had decreased his total daily oxycodone dose from 30 mg to 15 when I admitted him. That may have been too much of a decrease. Will change the oxycodone to 5 mg qid which will be a total daily dose of 20 mg. We will also see how one dose of IM dilaudid will do. If it helps, the working diagnosis of opiate withdrawal is supported. This diagnosis is in addition to all the others we are already working with.
[2020-05-24] MEDS: HYDROCHLOROTHIAZIDE 12.5 MG CAPSULE PO SCH (11:31)
[2020-05-24] MEDS: oxyCODONE HCL/ACETAMINOPHEN 1 TAB TABLET PO SCH ×3 (11:31→21:47)
--- NOTE | 2020-05-24 11:46 | ANES ---
Anesthesia Pre Procedure Eval Vitals/Labs: Last Vital Signs Temp 37.0 C 05/24/20 07:00 Pulse 87 05/24/20 10:48 Resp 20 05/24/20 07:00 BP 156/88 H 05/24/20 08:04 Pulse Ox 94 05/24/20 07:00 HOME MEDICATIONS diphenoxylate-atropine 2.5 mg-0.025 mg tablet 5 mg PO QID PRN tab 07/06/18 [Last Taken Unknown] loperamide 2 mg tablet 4 mg PO QID PRN 07/06/18 [Last Taken Unknown] omeprazole 40 mg capsule,delayed release 40 mg PO DAILY 07/06/18 [Last Taken Unknown] ropinirole 3 mg tablet 3 mg PO BID 07/06/18 [Last Taken Unknown] amlodipine 5 mg tablet 10 mg PO DAILY 08/17/19 [Last Taken Unknown] Liraglutide [Victoza 2-Johnathan] 0.3 ml SQ DAILY 10/18/19 [Last Taken Unknown] Lisinopril/Hydrochlorothiazide [Lisinopril-Hctz 10-12.5 mg Tab] 12.5 mg PO DAILY 10/18/19 [Last Taken Unknown] diclofenac sodium 1 % topical gel 2 g TP QID #200 g 03/08/20 [Last Taken Unknown] naloxone 4 mg/actuation nasal spray 4 mg JAM Q2M PRN #2 ea 03/08/20 [Last Taken Unknown] pregabalin 100 mg capsule 100 mg PO TID #90 cap 03/11/20 [Last Taken Unknown] fluconazole 200 mg tablet 200 mg PO DAILY #10 tab 04/03/20 [Last Taken Unknown] aripiprazole 5 mg tablet 5 mg PO HS #30 tab 04/11/20 [Last Taken Unknown] bupropion HCl 300 mg 24 hr tablet, extended release 300 mg PO QAM #30 tab 04/11/20 [Last Taken Unknown] duloxetine 60 mg capsule,delayed release 60 mg PO BID #60 cap 04/11/20 [Last Taken Unknown] oxycodone-acetaminophen 7.5 mg-325 mg tablet 1 tab PO QID #120 tab 04/16/20 [Last Taken Unknown] dicyclomine 10 mg capsule 20 mg PO QID #60 cap 05/09/20 [Last Taken Unknown] Topiramate [Topiramate ER] 25 mg PO BID 05/20/20 [Last Taken Unknown] Atorvastatin Calcium [Lipitor] 10 mg PO HS 05/23/20 [Last Taken Unknown] Banophen 25 - 50 mg PO HS PRN 05/23/20 [Last Taken Unknown] Cyclobenzaprine HCl 15 mg PO QID 05/23/20 [Last Taken Unknown] Dapagliflozin Propanediol [Farxiga] 15 mg PO QAM 05/23/20 [Last Taken Unknown] Morphine Sulfate 30 mg PO Q6H PRN 05/23/20 [Last Taken Unknown] Triamcinolone Acetonide [Kenalog 0.1% Cream] 1 appl TP TID 05/23/20 [Last Taken Unknown] predniSONE [Prednisone] 20 mg PO DAILY 05/23/20 [Last Taken Unknown] traZODone HCL [Trazodone HCl] 300 mg PO HS 05/23/20 [Last Taken Unknown] Allergies/Adverse Reactions: Allergies Allergy/AdvReac Type Severity Reaction Status Date / Time Penicillins Allergy Severe upper Verified 05/23/20 17:00 airway edema, hives morphine AdvReac Severe Other Verified 05/24/20 02:45 - Planned Procedure Planned Procedure: Altered Mental Status Medication List Reviewed:: Yes Allergies Verified: Yes Medical History (Last Reviewed 05/24/20 @ 11:41 by James Fagan CRNA) Acute kidney injury (Acute) Onset Date: Unknown Adjustment disorder with depressed mood (Acute) Onset Date: Unknown Aortic stenosis (Acute) Onset Date: Unknown Atypical chest pain (Acute) Onset Date: Unknown Fracture of hip, right, closed (Acute) Onset Date: Unknown Diabetes mellitus, type II (Chronic) Onset Date: Unknown Diarrhea (Acute) Onset Date: Unknown Facet arthropathy (Acute) Onset Date: Unknown Fracture, femur, head (Acute) Onset Date: Unknown Glaucoma (Acute) Onset Date: Unknown Gout (Acute) Onset Date: Unknown Heart murmur (Acute) Onset Date: Unknown Hyperlipidemia (Chronic) Onset Date: Unknown Hypertension (Chronic) Onset Date: Unknown Iron deficiency anemia (Chronic) Onset Date: Unknown Lumbago (Chronic) Onset Date: Unknown Osteoarthritis, knee (Acute) Onset Date: Unknown TOO (obstructive sleep apnea) (Chronic) Onset Date: Unknown Osteoarthritis of right hip (Acute) Onset Date: Unknown Psychosis (Acute) Onset Date: Unknown Short bowel syndrome (Acute) Onset Date: Unknown Small bowel obstruction (Acute) Onset Date: Unknown Snoring (Acute) Onset Date: Unknown Subclavian steal syndrome (Chronic) Onset Date: Unknown Syncope and collapse (Acute) Onset Date: Unknown Tachycardia (Acute) Onset Date: Unknown Fibromyalgia Onset Date: Unknown Surgical History (Last Reviewed 05/24/20 @ 11:42 by James Fagan CRNA) H/O arthroscopy of left knee Onset Date: ~1977 H/O colectomy Onset Date: ~03/28/[address] Trevor Rivera H/O exploratory laparotomy Onset Date: ~08/10/[address] chester Leija H/O hernia repair Onset Date: ~1954 bilateral History of appendectomy Onset Date: Unknown History of total hip arthroplasty Onset Date: ~06/29/14 Right total hip arthroplasty per Dr Servando Coleman Hx of tonsillectomy Onset Date: Unknown Hx of total knee arthroplasty Onset Date: ~08/02/09 arthroplasty right knee unicompartmental per Dr Servando Coleman Family History (Last Reviewed 05/24/20 @ 11:42 by James Fagan CRNA) Mother Diabetes Heart disease Father Diabetes Myocardial infarction Heart disease Substance abuse Brother 3-DM, HTN athritis 1-heart disease Brother 1- crib Son 1-arthritis, 1-healthy, 1-unknown Daughter 1-healthy, 1 OD Son 1-crib - Family Anesthesia History Family History:: no untoward family reactions to anesthesia, no familial bleeding tendencies, no family history of clotting disorders, no family history of premature - Airway/Neck/Teeth Teeth Condition: none Denture Type: None Neck Exam: full range of motion Mallampatti Score: 2 Thyromental (T-M) distance: > 6 cm Mandibulo Hyoid distance: > 3 cm - Respiratory Respiratory History: sleep apnea - May be difficult considering TOO, confusion and chronic pain medicines. Respiratory Physical: wheezing Smoking Status: Current every day smoker - 1ppd Discussed smoking cessation including day of surgery: Yes - none today Sleep Apnea currently treated: No - Diagnosed, does not wear CPAP Sleep Apnea by current assessment: Yes - Cardiovascular Cardiac History: arrhythmia, hypertension, valvular heart disease - Aortic stenosis Tolerate Activity: Poor Heart Sounds: S1 & S2, Regular - Gastrointestinal NPO since: 729 - Anesthesia Assessment and Plan ASA Class: PS, III Anesthesia Type Plan: MAC
[2020-05-24] MEDS ORDERED: LIDOCAINE HCL 10 ML VIAL IJ ONE (11:50)
[2020-05-24] MEDS ORDERED: LIDOCAINE HCL 20 ML VIAL IJ ONE (12:00)
--- NOTE | 2020-05-24 12:53 | ANES ---
Anesthesia Procedure Note Procedure Note: ANESTHESIA PROCEDURE NOTE Date of Procedure: 05/24/2020 Time of procedure: 12:15 PM. Performed by: RENÉE Roblero CRNA, MSN Preprocedure diagnosis: Confusion, change in mental status. Post procedure diagnosis: Same. Procedure: Venipuncture for IV access. Indications: I was requested to start a large IV in preparation for a CTA. Findings: On first interviewing the patient, I thought him to be relatively oriented however on further interaction it was apparent that he was experiencing a high level of confusion. I first scanned his arms with a vein finder, finding no reasonably sized vein to access I employed ultrasound. There had been an antecubital attempt on the left side, I could not find any reasonable access there and on scanning the right arm I could not find any deeper reasonably sized vein. An artery was obviously present, but no reasonable venous access. It did not take long while using the ultrasound until Mr. Urban became irritated and increasingly belligerent. I had no real success in calling him to the point where I could assess any further venous status. Normally I would next look at the external jugular, but it was very apparent that he would not l assessment let alone cannulation of the external jugular. Also noting how he was refusing to wear his shoulder immobilizer, it would not be advised to start an IV until its immediate usage. I have great concern about sedating this gentleman for an MRI and or a CTA. If we actually had reasonable venous access we would still be facing real challenges of getting good images safely. He has obstructive sleep apnea and is on many medications his current state of confusion. I am afraid that even if we could proceed we would either get poor pictures from snoring, risk apnea where I have little to no control of the airway or exacerbating his current reactions to any stimuli. I discussed my concerns with Dr. Willams and he believed it to be prudent to defer said procedures at this time. Thank you for this consultation. James Fagan CRNA, COMPTROLLER, MSN
[2020-05-24] MEDS: DILTIAZEM HCL 120 MG CAP.SR.24H PO SCH (15:33)
[2020-05-24] MEDS: LORazepam 0.5 MG TABLET PO PRN ×3 (16:15→21:51)
[2020-05-24] MEDS: rOPINIRole HCL 1 MG TABLET PO SCH (20:21)
[2020-05-25] MEDS: ACETAMINOPHEN 325 MG TABLET PO PRN (02:03)
[2020-05-25] MEDS: LORazepam 0.5 MG TABLET PO PRN ×5 (02:04→10:00)
[2020-05-25] MEDS: oxyCODONE HCL/ACETAMINOPHEN 1 TAB TABLET PO SCH ×5 (05:03→22:12)
[2020-05-25 06:04] LABS: Hematocrit 36.3 % (42.0-52.0); Mean Cell Volume 118.2 fl (78-100); Mean Corpuscular Hemoglobin 42.3 pg (27-31); Mean Corpuscular Hgb Conc 35.8 g/dl (32-36); Mean Platelet Volume 9.3 fl (8-11.3); NRBC# 0.1 k/mm3 (0-1); Neutrophil # 7.2 K/mm3 (1.3-6.0); Neutrophil % 65.4 % (42-75.0); Platelet Count 398 K/mm3 (150-450); Red Blood Count 3.07 M/mm3 (4.7-6.0); Red Cell Distribution Width 14.2 % (11.5-14.0)
[2020-05-25 06:26] LABS: Anion Gap 14.8 mmol/L (6.8-13.8); BUN/Creatinine Ratio 16.4 (9.0-21.6); Calcium * 9.4 mg/dL (7.9-10.9); Carbon Dioxide 26.8 mmol/L (24-32.6); Estimated Creat Clear 52.6; Potassium 2.6 mmol/L (3.4-4.6)
[2020-05-25 06:29] LABS: Troponin I 0.413 ng/mL (0.00-0.10)
[2020-05-25] MEDS: buPROPion HCL 150 MG TAB.SR.24H PO SCH (08:00)
[2020-05-25] MEDS: PANTOPRAZOLE SODIUM 40 MG TABLET.EC PO SCH (08:00)
[2020-05-25] MEDS: ENOXAPARIN SODIUM 40 MG/0.4 ML SYRG SC SCH (08:00)
[2020-05-25] MEDS: rOPINIRole HCL 1 MG TABLET PO SCH ×2 (08:01→22:14)
[2020-05-25] MEDS: LISINOPRIL 10 MG TABLET PO SCH (08:01)
[2020-05-25] MEDS: POTASSIUM CHLORIDE 20 MEQ TABLET.SA PO SCH (08:01)
[2020-05-25] MEDS: INSULIN GLARGINE,HUM.REC.ANLOG 100 UNITS/ML VIAL SC SCH ×2 (08:02→22:12)
[2020-05-25] MEDS: HYDROCHLOROTHIAZIDE 12.5 MG CAPSULE PO SCH (10:00)
[2020-05-25] MEDS ORDERED: LORazepam 2 MG/ML DISP.SYRIN IV PRN (11:51)
[2020-05-25] MEDS ORDERED: LORazepam 1 MG TABLET PO SCH (12:15)
[2020-05-25] MEDS ORDERED: POTASSIUM CHLORIDE 20 MEQ/15 ML UDC PO ONE (12:15)
--- NOTE | 2020-05-25 12:18 | PN ---
Subjective - Date and Time Seen Date: 05/25/20 Time: 12:18 Subjective Narrative: Patient is alert and oriented at this time. Patient is difficult as he has a plethora of concerns and is slightly belligerent. When I going to talk to him on the few occasions I have today patient states he cannot recall what he needs. Denies being in any acute pain. Patient's not keeping his shoulder immobilizer on not had a put on twice. I did adjust his oral pain medicine to every 4 hours instead of every 6 and discontinue the Dilaudid due to his adverse reactions to morphine. I also increased his Ativan to 1 mg from 0.5 mg to help with his agitation. Otherwise patient's vital signs been stable. He is wanting a nicotine patch as he cannot gone smoke which will be provided for him. Patient's troponin is downtrending, no chest pain. Previous EKGs reviewed with no acute cardiopulmonary process taking place. Patient has not had to use nitroglycerin since its been ordered for him. Patient's been up in his chair most the day. Patient's vital signs been stable and is been afebrile. Objective - Review of Systems Generalized/Overall Review: Reports: No Symptoms Reported EENTM: Reports: No Symptoms Reported Respiratory: Denies: Cough, Shortness of Breath Cardiac: Denies: Chest Pain, Edema, Palpitations Abdominal: Denies: Nausea, Vomiting Musculoskeletal Complaints: Reports: Joint Pain - Vitals Vitals: Last Vital Signs Temp 37.2 C 05/25/20 10:00 Pulse 95 05/25/20 10:00 Resp 17 05/25/20 10:00 BP 132/76 05/25/20 08:01 Pulse Ox 98 05/25/20 10:00 - Abnormal Lab Findings Abnormal Lab Findings: Abnormal Lab Results 05/25/20 05/25/20 Range/Units 05:45 05:45 WBC 11.0 H D (4.0-10.5) K/mm3 RBC 3.07 L (4.7-6.0) M/mm3 Hgb 13.0 L (13.5-18.0) gm/dL Hct 36.3 L (42.0-52.0) % MCV 118.2 H (78-100) fl MCH 42.3 H (27-31) pg RDW 14.2 H (11.5-14.0) % Immature Gran % (Auto) 0.90 H (0.001-0.429) % Immature Gran # (Auto) 0.10 H (0.000-0.0310) K/mm3 Neutrophils # 7.2 H (1.3-6.0) K/mm3 Potassium 2.6 L (3.4-4.6) mmol/L Anion Gap 14.8 H (6.8-13.8) mmol/L Est GFR (Non-Af Amer) 54 L (60-130) mL/min Random Glucose 223 H (70-110) mg/dL Troponin I 0.413 H* (0.00-0.10) ng/mL - Exam Constitutional: Present: Alert, Oriented x3, No distress ENT Exam: Present: hearing grossly normal Respiratory: Present: no accessory muscle use, decreased breath sounds - Bilateral bases. Absent: crackles, wheezing Cardiovascular/Chest: Present: regular rate, rhythm, no murmur Abdomen: Present: soft, nontender, nondistended Extremity: Absent: lower extremity edema Appearance: Present: disheveled, impaired insight Eye contact: Present: cooperative, good eye contact Thoughts: Present: no apparent hallucination, persecution Assessment/Plan Plan Narrative: Patient's acute delirium and altered mental status appear to have resolved with a decrease in his pain medication. Patient states he is chronically hurting but cannot verbalize where or to the severity. I did adjust his oral pain medicine to every 4 hours from every 6. I also increase his Ativan to help with his agitation. Patient is constantly taken off his shoulder immobilizer and try to use his arm despite the many times I put it on and try to explain to him the need to keep this in place. Concerned that he will reinjure his shoulder but patient is noncompliant at this time. Nicotine patch ordered to help with his smoking creatinine. Leukocytosis is resolving. We will continue current treatment plan, continue monitoring of his vital signs. Nurse to call questions or concerns. - Problems/Diagnosis (1) Altered mental status Problem: Acute Qualifiers: Altered mental status type: disorientation Qualified Code(s): R41.0 - Disorientation, unspecified (2) Acute delirium Problem: Acute (3) Chest pain Problem: Resolved Qualifiers: Chest pain type: unspecified Qualified Code(s): R07.9 - Chest pain, unspecified (4) BMI 32.0-32.9,adult Problem: Chronic (5) Chronic right shoulder pain Problem: Acute (6) COPD (chronic obstructive pulmonary disease) Problem: Chronic Qualifiers: COPD type: chronic bronchitis Chronic bronchitis type: simple Qualified Code(s): J41.0 - Simple chronic bronchitis (7) Chronically on opiate therapy Problem: Chronic (8) Tobacco abuse Problem: Chronic (9) Leukocytosis Problem: Acute Qualifiers: Leukocytosis type: bandemia Qualified Code(s): D72.825 - Bandemia
[2020-05-25] MEDS: LORazepam 1 MG TABLET PO PRN ×3 (13:13→22:12)
[2020-05-25] MEDS: DILTIAZEM HCL 120 MG CAP.SR.24H PO SCH (15:39)
[2020-05-25] MEDS ORDERED: NICOTINE 21 MG PATC TD ONE (22:04)
[2020-05-25] MEDS: NICOTINE 21 MG PATC TD SCH (22:14)
[2020-05-26] MEDS: oxyCODONE HCL/ACETAMINOPHEN 1 TAB TABLET PO SCH ×6 (02:06→21:32)
[2020-05-26] MEDS: LORazepam 1 MG TABLET PO PRN (02:07)
[2020-05-26 07:39] LABS: Hematocrit 35.5 % (42.0-52.0); Hemoglobin 12.7 gm/dL (13.5-18.0); Mean Cell Volume 117.5 fl (78-100); Mean Corpuscular Hemoglobin 42.1 pg (27-31); Mean Corpuscular Hgb Conc 35.8 g/dl (32-36); Mean Platelet Volume 9.8 fl (8-11.3); NRBC# 0.1 k/mm3 (0-1); Neutrophil # 6.5 K/mm3 (1.3-6.0); Neutrophil % 64.9 % (42-75.0); Platelet Count 381 K/mm3 (150-450); Red Blood Count 3.02 M/mm3 (4.7-6.0); Red Cell Distribution Width 14.2 % (11.5-14.0)
[2020-05-26] MEDS: INSULIN GLARGINE,HUM.REC.ANLOG 100 UNITS/ML VIAL SC SCH ×2 (07:52→20:31)
[2020-05-26] MEDS: ENOXAPARIN SODIUM 40 MG/0.4 ML SYRG SC SCH (07:52)
[2020-05-26] MEDS: PANTOPRAZOLE SODIUM 40 MG TABLET.EC PO SCH (07:52)
[2020-05-26] MEDS: LISINOPRIL 10 MG TABLET PO SCH (08:00)
[2020-05-26] MEDS: POTASSIUM CHLORIDE 20 MEQ TABLET.SA PO SCH (08:00)
[2020-05-26] MEDS: buPROPion HCL 150 MG TAB.SR.24H PO SCH (08:00)
[2020-05-26] MEDS: rOPINIRole HCL 1 MG TABLET PO SCH ×2 (08:00→20:28)
[2020-05-26 08:01] LABS: Anion Gap 14.6 mmol/L (6.8-13.8); BUN/Creatinine Ratio 18.9 (9.0-21.6); Calcium * 9.4 mg/dL (7.9-10.9); Carbon Dioxide 25.9 mmol/L (24-32.6); Estimated Creat Clear 40.9; Potassium 3.5 mmol/L (3.4-4.6)
[2020-05-26] MEDS ORDERED: NORMAL SALINE 1,000 ML IV PRN (11:00)
[2020-05-26] MEDS: HYDROCHLOROTHIAZIDE 12.5 MG CAPSULE PO SCH (11:14)
--- NOTE | 2020-05-26 12:46 | PN ---
Subjective - Date and Time Seen Date: 05/26/20 Time: 12:46 Subjective Narrative: Patient feels well today, much improved from a delirium standpoint. He is alert and oriented. He wears a shoulder brace but otherwise he is stable. Patient was to be discharged home today but repeat labs showed him to have a little bit of an acute kidney injury as he is not been drinking much water. Patient agreed to allow an IV to be placed in him so we can have some fluid resuscitation. Patient also advised to drink more water today which she states understanding to. Patient likely be discharged home tomorrow. Objective - Review of Systems Generalized/Overall Review: Reports: No Symptoms Reported EENTM: Reports: No Symptoms Reported Respiratory: Reports: No Symptoms Reported Cardiac: Reports: No Symptoms Reported Abdominal: Reports: No Symptoms Reported Genitourinary Symptoms: Reports: No Symptoms Reported Musculoskeletal Complaints: Reports: Joint Pain Neurological: Reports: No Symptoms Reported Skin: Reports: No Symptoms Reported Endocrine: Reports: No Symptoms Reported - Vitals Vitals: Last Vital Signs Temp 36.8 C 05/26/20 10:00 Pulse 65 05/26/20 10:00 Resp 16 05/26/20 10:00 BP 134/68 05/26/20 10:00 Pulse Ox 98 05/26/20 10:00 - Abnormal Lab Findings Abnormal Lab Findings: Abnormal Lab Results 05/26/20 05/26/20 Range/Units 07:23 07:23 RBC 3.02 L (4.7-6.0) M/mm3 Hgb 12.7 L (13.5-18.0) gm/dL Hct 35.5 L (42.0-52.0) % MCV 117.5 H (78-100) fl MCH 42.1 H (27-31) pg RDW 14.2 H (11.5-14.0) % Immature Gran % (Auto) 1.10 H (0.001-0.429) % Immature Gran # (Auto) 0.11 H (0.000-0.0310) K/mm3 Neutrophils # 6.5 H (1.3-6.0) K/mm3 Anion Gap 14.6 H (6.8-13.8) mmol/L BUN 34 H (6-23) mg/dL Creatinine 1.80 H D (0.4-1.4) mg/dL Est GFR (Non-Af Amer) 40 L D (60-130) mL/min Random Glucose 300 H D (70-110) mg/dL - Exam Constitutional: Present: Alert, Oriented x3, Cooperative, No distress Respiratory: Present: lungs clear, normal breath sounds Cardiovascular/Chest: Present: regular rate, rhythm, no murmur Abdomen: Present: soft, nontender, nondistended Extremity: Present: other - right shoulder pain Appearance: Present: appropriate insight, disheveled Eye contact: Present: cooperative, good eye contact Thoughts: Present: no apparent hallucination. Absent: delusions, paranoid Assessment/Plan Plan Narrative: Altered mental status has resolved. Patient's meds were pleasant today and in agreement with treatment plan. Patient doing well with the adjustment in his pain medicine and anxiety medicine. Patient would have been discharged home today aside from his acute kidney injury. We will give him 1 bag of normal saline and encouraged to increase oral intake with repeat labs in the morning. Patient likely be discharged home tomorrow. Nurse to call questions or concerns, patient in agreement with the treatment plan. - Problems/Diagnosis (1) Altered mental status Problem: Acute Qualifiers: Altered mental status type: disorientation Qualified Code(s): R41.0 - Disorientation, unspecified (2) Acute delirium Problem: Acute (3) Chest pain Problem: Resolved Qualifiers: Chest pain type: unspecified Qualified Code(s): R07.9 - Chest pain, unspecified (4) BMI 32.0-32.9,adult Problem: Chronic (5) Chronic right shoulder pain Problem: Acute (6) COPD (chronic obstructive pulmonary disease) Problem: Chronic Qualifiers: COPD type: chronic bronchitis Chronic bronchitis type: simple Qualified Code(s): J41.0 - Simple chronic bronchitis (7) Chronically on opiate therapy Problem: Chronic (8) Tobacco abuse Problem: Chronic (9) Leukocytosis Problem: Acute Qualifiers: Leukocytosis type: bandemia Qualified Code(s): D72.825 - Bandemia
[2020-05-26] MEDS: DILTIAZEM HCL 120 MG CAP.SR.24H PO SCH (17:10)
[2020-05-26] MEDS: NICOTINE 21 MG PATC TD SCH (20:26)
[2020-05-26] MEDS ORDERED: REMOVE NICOTINE TP SCH (21:00)
[2020-05-27] MEDS: oxyCODONE HCL/ACETAMINOPHEN 1 TAB TABLET PO SCH ×2 (01:58→05:08)
[2020-05-27] MEDS: PANTOPRAZOLE SODIUM 40 MG TABLET.EC PO SCH (06:54)
[2020-05-27] MEDS: INSULIN GLARGINE,HUM.REC.ANLOG 100 UNITS/ML VIAL SC SCH (06:54)
[2020-05-27] MEDS: ENOXAPARIN SODIUM 40 MG/0.4 ML SYRG SC SCH (06:54)
[2020-05-27] MEDS ORDERED: INSULIN GLARGINE,HUM.REC.ANLOG 100 UNITS/ML VIAL SC SCH (07:01)
[2020-05-27 07:02] LABS: Anion Gap 12.5 mmol/L (6.8-13.8); BUN/Creatinine Ratio 23.6 (9.0-21.6); Calcium * 9.4 mg/dL (7.9-10.9); Carbon Dioxide 26.4 mmol/L (24-32.6); Estimated Creat Clear 51.1; Potassium 3.9 mmol/L (3.4-4.6)
--- NOTE | 2020-05-27 07:41 | DS ---
(1) Acute delirium Diagnosis(s): mostly resolved. not quite 100% but almost back to normal. will not wear his shoulder sling in spite of discussion because he doesn't like it. Problem: Resolved (2) TOÑO (acute kidney injury) Diagnosis(s): wasn't drinking much. had IV saline yesterday. BMP from this morning pending. if better, he can go home. Problem: Acute (3) Toxic encephalopathy Problem: Resolved (4) Polypharmacy Diagnosis(s): improved. goal will be to hold the line on adding any medications. he became my patient recently and came to me with polypharmacy. Problem: Chronic (5) Aftercare following right shoulder joint replacement surgery Diagnosis(s): pain level this morning right shoulder is 1/10. has been receiving Percocet regularly. Problem: Acute (6) Chronically on opiate therapy Problem: Chronic (7) RLS (restless legs syndrome) Problem: Chronic (8) Subclavian steal syndrome Problem: Chronic (9) Diabetes mellitus, type II Diagnosis(s): have him on low dose long duration insulin here. sugars now in the upper 200s will restart his home medications for diabetes. Problem: Chronic Qualifiers: Diabetes mellitus intermediate school teacher insulin use: without intermediate school teacher use (10) Hypertension Diagnosis(s): bp now generally fairly well controlled. 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 He was admitted here for delirium. He had undergone a right shoulder arthroscopy with rotator cuff repair on 05/20/[address] Judd. His reported that his mentation was normal when he went home from ambulatory surgery that day. He had been taking prior to surgery Percocet four times daily for chronic pain. luis Ogden, prescribed immediate release morphine 30 mg as needed for post op pain after his shoulder operation was completed. He slowly became increasingly confused at home after shoulder surgery discharge and had some falls. He did not recognize his when he woke up the morning of this admission and called her ratface. Evaluation for cause other than medication reaction was not found. At the start of this hospitalization his medications were minimized. Small adjustments were made during his stay here. He has slowly gotten better in the hospital so that this morning he is close to his normal. He developed TOÑO over this last weekend and wasn't drinking much. He was given IV saline and encouraged to drink more. He has a history of TOO and mild to moderate aortic stenosis. By telephone this morning his daughter reported he had a similar episode in 2010 while doing some work. It apparently occured suddenly without any provocation. It resulted in hospitalization for 2 weeks at the [facility]. The only thing found then was subclavian steal syndrome. It is unlikely that the subclavian steal resulted in delirium. This morning he knows who he is, who I am, that it is May, that it is 2020, that it's in the morning, that he is in the hospital in [facility] and who the president is. He thought today was Wednesday rather than Wednesday. He doesn't know why he has been in the hospital. He is no longer uncooperative or combative. He developed TOÑO over the weekend due to inadequate oral fluid intake. He was given IV saline and encouraged to drink more so that his BMP this morning has normalized. Procedures Performed: none Results and Findings: Pending Mircobiology Results 05/23/20 12:30 Blood Blood Culture - Preliminary NO GROWTH AFTER 48 HOURS 05/23/20 12:07 Blood Blood Culture - Preliminary NO GROWTH AFTER 48 HOURS Lab Pending Results 05/23/20 12:07: WBC 12.7 H, RBC 2.60 L, Hgb 11.2 L, Hct 31.1 L, MCV 119.6 H, MCH 43.1 H, MCHC 36.0, RDW 14.6 H, Plt Count 367, MPV 9.2, Immature Gran % (Auto) 1.10 H, Immature Gran # (Auto) 0.14 H, Neutrophils % 81.1 H, Lymphocytes % 11.6 L, Monocytes % 5.0, Eosinophils % 0.8, Basophils % 0.4, Nucleated RBC % 0.1, Neutrophils # 10.3 H, Lymphocytes # 1.47 L, Monocytes # 0.6, Eosinophils # 0.1, Absolute Basophils 0.1 05/23/20 12:07: Sodium 141, Plasma Sodium 143 H, Potassium 3.3 L, Chloride 104, Carbon Dioxide 28.5, Anion Gap 11.8, BUN 33 H, Creatinine 1.28, Est GFR (Non-Af Amer) 60 D, BUN/Creatinine Ratio 25.8 H, Random Glucose 213 H, Calcium 9.1, Calcium Adj for Albumin 9.3, Magnesium 1.7, Total Bilirubin 0.7, AST 36, ALT 26, Alkaline Phosphatase 69, Total Protein 7.2, Albumin 3.3 L, Ethyl Alcohol Less than 3.0 05/23/20 12:07: Lactic Acid, Venous 0.8 05/23/20 12:57: Urine Color Yellow, Urine Appearance Clear, Urine pH 7.5, Ur Specific [place] 1.015, Urine Protein 30 H, Urine Glucose (UA) >=1000 H, Urine Ketones 5, Urine Blood 5 H, Urine Nitrate Negative, Urine Bilirubin Negative, Urine Urobilinogen Normal, Ur Leukocyte Esterase Negative, Urine RBC 0-5, Urine WBC Trace, Ur Epithelial Cells Trace, Urine Bacteria Trace, Urine Culture Comments No culture indicated 05/23/20 12:57: Urine Opiates Screen Positive H, Barbiturate Screen Negative, Ur Phencyclidine Scrn Negative, Urine Amphetamine Negative, U Benzodiazepines Scrn Negative, Urine Cocaine Screen Negative, Urine Marijuana (THC) Negative 05/23/20 14:17: SARS-CoV-2 (PCR) Not detected 05/23/20 16:30: pCO2 43.3, pO2 53.7 L, HCO3 29.5 H, Total CO2 30.8 H, Base Excess 5.0 H, ABG pH 7.45, ABG O2 Sat (Measured) 89.2 L 05/23/20 16:30: Troponin I 0.256 H*, TSH 0.129 L 05/23/20 22:50: Troponin I 0.602 H* 05/24/20 06:25: WBC 14.9 H, RBC 3.07 L, Hgb 13.1 L, Hct 36.5 L, MCV 118.9 H, MCH 42.7 H, MCHC 35.9, RDW 14.5 H, Plt Count 386, MPV 8.8, Immature Gran % (Auto) 0.70 H, Immature Gran # (Auto) 0.10 H, Neutrophils % 74.1, Lymphocytes % 17.3 L, Monocytes % 7.2, Eosinophils % 0.4, Basophils % 0.3, Nucleated RBC % 0.1, Neutrophils # 11.1 H, Lymphocytes # 2.58, Monocytes # 1.1 H, Eosinophils # 0.1, Absolute Basophils 0.0 05/24/20 06:25: Sodium 142, Plasma Sodium 144 H, Potassium 3.0 L, Chloride 101, Carbon Dioxide 28.0, Anion Gap 16.0 H, BUN 24 H, Creatinine 1.40, Est GFR (Non- Af Amer) 54 L, BUN/Creatinine Ratio 17.1, Random Glucose 218 H, Calcium 10.0, Troponin I 0.980 H* 05/24/20 09:45: Troponin I 0.851 H* 05/24/20 09:45: D-Dimer 2.00 H 05/25/20 05:45: WBC 11.0 H D, RBC 3.07 L, Hgb 13.0 L, Hct 36.3 L, MCV 118.2 H, MCH 42.3 H, MCHC 35.8, RDW 14.2 H, Plt Count 398, MPV 9.3, Immature Gran % (Auto) 0.90 H, Immature Gran # (Auto) 0.10 H, Neutrophils % 65.4, Lymphocytes % 24.8, Monocytes % 7.5, Eosinophils % 1.0, Basophils % 0.4, Nucleated RBC % 0.1, Neutrophils # 7.2 H, Lymphocytes # 2.73, Monocytes # 0.8, Eosinophils # 0.1, Absolute Basophils 0.0 05/25/20 05:45: Sodium 139, Plasma Sodium 141, Potassium 2.6 L, Chloride 100, Carbon Dioxide 26.8, Anion Gap 14.8 H, BUN 23, Creatinine 1.40, Est GFR (Non-Af Amer) 54 L, BUN/Creatinine Ratio 16.4, Random Glucose 223 H, Calcium 9.4, Troponin I 0.413 H* 05/26/20 07:23: WBC 10.0, RBC 3.02 L, Hgb 12.7 L, Hct 35.5 L, MCV 117.5 H, MCH 42.1 H, MCHC 35.8, RDW 14.2 H, Plt Count 381, MPV 9.8, Immature Gran % (Auto) 1.10 H, Immature Gran # (Auto) 0.11 H, Neutrophils % 64.9, Lymphocytes % 23.2, Monocytes % 8.9, Eosinophils % 1.4, Basophils % 0.5, Nucleated RBC % 0.1, Neutrophils # 6.5 H, Lymphocytes # 2.32, Monocytes # 0.9, Eosinophils # 0.1, Absolute Basophils 0.1 05/26/20 07:23: Sodium 137, Plasma Sodium 140, Potassium 3.5 D, Chloride 100, Carbon Dioxide 25.9, Anion Gap 14.6 H, BUN 34 H, Creatinine 1.80 H D, Est GFR (Non-Af Amer) 40 L D, BUN/Creatinine Ratio 18.9, Random Glucose 300 H D, Calcium 9.4 Discharge Location: Home Disposition: Home self-care Condition: Stable Discharge Activity: Activity as tolerated Discharge Diet: Consistent carbs Additional Patient Instructions (free text): Call for problems or questions. Keep your appt with Dr. Judd as an outpatient. BMP blood test in [address] Willams 1 week in the office Complete Home Medications List: Complete Home Medication List: omeprazole 40 mg capsule,delayed release 40 mg PO DAILY 07/06/18 ropinirole 3 mg tablet 3 mg PO BID 07/06/18 amlodipine 5 mg tablet 10 mg PO DAILY 08/17/19 Liraglutide [Victoza 2-Johnathan] 0.3 ml SQ DAILY 10/18/19 Lisinopril/Hydrochlorothiazide [Lisinopril-Hctz 10-12.5 mg Tab] 12.5 mg PO DAILY 10/18/19 diclofenac sodium 1 % topical gel 2 g TP QID #200 g 03/08/20 naloxone 4 mg/actuation nasal spray 4 mg JAM Q2M PRN #2 ea 03/08/20 bupropion HCl 300 mg 24 hr tablet, extended release 300 mg PO QAM #30 tab 04/11/20 oxycodone-acetaminophen 7.5 mg-325 mg tablet 1 tab PO QID #120 tab 04/16/20 Atorvastatin Calcium [Lipitor] 10 mg PO HS 05/23/20 Dapagliflozin Propanediol [Farxiga] 15 mg PO QAM 05/23/20 Triamcinolone Acetonide [Kenalog 0.1% Cream] 1 appl TP TID 05/23/20 Nicotine [Nicoderm] 21 mg TD HS #30 patch.td24 05/27/20 Forms: Patient Portal Registration
[2020-05-27] MEDS: rOPINIRole HCL 1 MG TABLET PO SCH (08:36)
[2020-05-27] MEDS: LISINOPRIL 10 MG TABLET PO SCH (08:37)
[2020-05-27] MEDS: POTASSIUM CHLORIDE 20 MEQ TABLET.SA PO SCH (08:37)
[2020-05-27] MEDS: buPROPion HCL 150 MG TAB.SR.24H PO SCH (08:37)
[2020-05-27 10:15] VITALS: BP 135/85
== END 2020-05-27 09:55 | disposition home or self-care (01) | DRG 92 ==
LOC: ER 10:49 → MS 10:49
PROVIDERS: ADMIT Allergy & Immunology; ATTEND Allergy & Immunology
DX: K91.2 Postsurgical malabsorption, not elsewhere classified; G47.33 Obstructive sleep apnea (adult) (pediatric); Z96.611 Presence of right artificial shoulder joint; G45.8 Other transient cerebral ischemic attacks and related syndromes; D50.9 Iron deficiency anemia, unspecified; N17.9 Acute kidney failure, unspecified; R41.0 Disorientation, unspecified; Z47.1 Aftercare following joint replacement surgery; Z79.891 Long term (current) use of opiate analgesic; T50.905A Adverse effect of unspecified drugs, medicaments and biological substances, initial encounter; E11.9 Type 2 diabetes mellitus without complications; M25.511 Pain in right shoulder; G92 Toxic encephalopathy; R07.9 Chest pain, unspecified; J41.0 Simple chronic bronchitis; I10 Essential (primary) hypertension

== ENCOUNTER 2020-07-15 13:08 | Observation (INO) ==
[2020-07-15] MEDS ORDERED: NORMAL SALINE 1,000 ML IV PRN (13:29)
[2020-07-15] MEDS ORDERED: ONDANSETRON HCL/PF 2 MG/ML VIAL IV ONE (13:29)
--- NOTE | 2020-07-15 13:45 | ERNOTE ---
Abdominal HPI - Narrative Date of Service: 07/15/20 - General Chief Complaint: Abdominal Pain Time Seen by Provider: 07/15/20 13:15 Source: patient Exam Limitations: no limitations - Immun/Allergies/Home Medications Immunizatons: IMMUNIZATION HX Immunizations Up to Date Yes History of Influenza Vaccine Yes Hx Pneumococcal Vaccination No Allergies/Adverse Reactions: Allergies Penicillins Allergy (Severe, Verified 07/15/20 13:19) upper airway edema, hives morphine Adverse Reaction (Severe, Verified 07/15/20 13:19) Other altered mental status pt's daughter states that pt had a severe reation to Morphine once, causing severe AMS,confusion- taking 5 days/hospitalization to return to normal mentation Home Medications: HOME MEDICATIONS omeprazole 40 mg capsule,delayed release 40 mg PO DAILY 07/06/18 [Last Taken Unknown] ropinirole 3 mg tablet 3 mg PO BID 07/06/18 [Last Taken Unknown] amlodipine 5 mg tablet 10 mg PO DAILY 08/17/19 [Last Taken Unknown] Liraglutide [Victoza 2-Johnathan] 0.3 ml SQ DAILY 10/18/19 [Last Taken Unknown] Lisinopril/Hydrochlorothiazide [Lisinopril-Hctz 10-12.5 mg Tab] 12.5 mg PO DAILY 10/18/19 [Last Taken Unknown] diclofenac sodium 1 % topical gel 2 g TP QID #200 g 03/08/20 [Last Taken Unknown] naloxone 4 mg/actuation nasal spray 4 mg JAM Q2M PRN #2 ea 03/08/20 [Last Taken Unknown] Dapagliflozin Propanediol [Farxiga] 10 mg PO QAM 05/23/20 [Last Taken Unknown] Triamcinolone Acetonide [Kenalog 0.1% Cream] 1 appl TP TID 05/23/20 [Last Taken Unknown] Nicotine [Nicoderm] 21 mg TD HS #30 patch.td24 05/27/20 [Last Taken Unknown] diphenoxylate-atropine 2.5 mg-0.025 mg tablet 2 tab PO QID #240 tab 06/04/20 [Last Taken Unknown] loperamide 2 mg capsule 4 mg PO QID #240 cap 06/04/20 [Last Taken Unknown] oxyCODONE HCL/ACETAMINOPHEN [Oxycodone-Acetaminophen 5-325] 1 ea PO Q6H PRN #12 tab 07/01/20 [Last Taken Unknown] ARIPiprazole [Abilify] 5 mg PO HS 07/16/20 [Last Taken Unknown] Bupropion HCl [Bupropion Xl] 300 mg PO DAILY 07/16/20 [Last Taken Unknown] Cholestyramine/Aspartame [Cholestyramine Light Packet] 4 gm PO BID 07/16/20 [Last Taken Unknown] Cyclobenzaprine HCl 10 mg PO QID 07/16/20 [Last Taken Unknown] Dicyclomine HCl 20 mg PO QID 07/16/20 [Last Taken Unknown] Duloxetine HCl 60 mg PO BID 07/16/20 [Last Taken Unknown] Fluconazole [Diflucan] 200 mg PO DAILY 07/16/20 [Last Taken Unknown] Pregabalin [Lyrica] 100 mg PO TID 07/16/20 [Last Taken Unknown] Topiramate [Topamax] 25 mg PO BID 07/16/20 [Last Taken Unknown] diphenhydrAMINE HCL [Benadryl] 25 - 50 mg PO HS PRN 07/16/20 [Last Taken Unknown] traZODone HCL [Trazodone HCl] 300 mg PO HS 07/16/20 [Last Taken Unknown] - Pain Score Pain Score #1 Pain Score: 8 Abdominal Pain Onset Location: RUQ, LUQ, epigastric Pain Radiation: no radiation - History of Present Illness Narrative: The patient is a 64 year old male who presents for abdominal pain which has been present for 5 days. There are associated symptoms of nausea, vomiting and diarrhea. The patient reports RUQ, LUQ and Epigastric pain constant achy pain, 8/10. There are no alleviating factors. There are aggravating factors of oral intake and movement. Previous treatments have included: Gas-X. The past medical history includes: DM, Diverticulitis, Short Bowel Syndrome, HTN, HLD, SBO, with exploratory laparotomy, hernia repair, and hemicolectomy. The social history is positive for tobacco use, former substance use, occasional alcohol use. The patient has had ill contacts, had similar symptoms last week as well which have since resolved. Patient reports that last Wednesday he developed nausea and was originally constipated. On Wednesday he took some mag citrate and has diarrhea, nausea and vomiting since then. He reports not eating/drinking much in the past 5 days. He reports taking Pepto-Bismo and Gas-X which have not helped his pain. had similar symptoms which have resolved. Review of Systems - Review of Systems Constitutional: Present: recent illness. Absent: fever EYE: Present: no symptoms reported ENT: Present: no symptoms reported. Absent: nasal drainage, sore throat Respiratory: Present: shortness of breath Cardiology: Present: no symptoms reported. Absent: chest pain Gastrointestinal/Abdominal: Present: nausea, vomiting, diarrhea, abdominal pain, eating less, drinking less Genitourinary: Present: no symptoms reported. Absent: pain Musculoskeletal: Present: joint pain - Rt Shoulder, Lt Knee Skin: Present: no symptoms reported. Absent: rash Neurological: Absent: headache Medical History (Last Reviewed 07/15/20 @ 13:38 by REJI Zamarripa) Acute kidney injury (Acute) Onset Date: Unknown Adjustment disorder with depressed mood (Acute) Onset Date: Unknown Aortic stenosis (Acute) Onset Date: Unknown Atypical chest pain (Acute) Onset Date: Unknown Fracture of hip, right, closed (Acute) Onset Date: Unknown Diabetes mellitus, type II (Chronic) Onset Date: Unknown Diarrhea (Acute) Onset Date: Unknown Facet arthropathy (Acute) Onset Date: Unknown Fracture, femur, head (Acute) Onset Date: Unknown Glaucoma (Acute) Onset Date: Unknown Gout (Acute) Onset Date: Unknown Heart murmur (Acute) Onset Date: Unknown Hyperlipidemia (Chronic) Onset Date: Unknown Hypertension (Chronic) Onset Date: Unknown Iron deficiency anemia (Chronic) Onset Date: Unknown Lumbago (Chronic) Onset Date: Unknown Osteoarthritis, knee (Acute) Onset Date: Unknown TOO (obstructive sleep apnea) (Chronic) Onset Date: Unknown Osteoarthritis of right hip (Acute) Onset Date: Unknown Psychosis (Acute) Onset Date: Unknown Short bowel syndrome (Chronic) Onset Date: Unknown Small bowel obstruction (Acute) Onset Date: Unknown Snoring (Acute) Onset Date: Unknown Subclavian steal syndrome (Chronic) Onset Date: Unknown Syncope and collapse (Acute) Onset Date: Unknown Tachycardia (Acute) Onset Date: Unknown Fibromyalgia Onset Date: Unknown Surgical History: Surgical History (Last Reviewed 07/15/20 @ 13:39 by REJI Zamarripa) H/O arthroscopy of left knee Onset Date: ~1977 H/O colectomy Onset Date: ~03/28/[address] Trevor Rivera H/O exploratory laparotomy Onset Date: ~08/10/[address] chester Leija H/O hernia repair Onset Date: ~1954 bilateral History of appendectomy Onset Date: Unknown History of total hip arthroplasty Onset Date: ~06/29/14 Right total hip arthroplasty per Dr Servando Coleman Hx of tonsillectomy Onset Date: Unknown Hx of total knee arthroplasty Onset Date: ~08/02/09 arthroplasty right knee unicompartmental per Dr Servando Coleman Status post shoulder surgery Onset Date: ~05/20/20 Procedure: Right shoulder arthroscopy with mini open rotator cuff repair of the supra and infraspinatus rotator cuff tendons, labral debridement, biceps debridement Dr. Judd Family History: Family History (Last Reviewed 07/15/20 @ 13:39 by REJI Zamarripa) Mother Heart disease Diabetes Father Substance abuse Heart disease Myocardial infarction Diabetes Brother 3-DM, HTN athritis 1-heart disease Brother 1- crib Son 1-arthritis, 1-healthy, 1-unknown Daughter 1-healthy, 1 OD Son 1-crib infant Social History: (Last Reviewed 07/15/20 @ 13:40 by REJI Zamarripa) Social History: Marital status: household members: spouse current occupational status: disabled current occupation: disabled Highest level of school completed/degree received: GED or equivalent Service: Yes branch: [employer] Tobacco: Smoking Status: Current every day smoker tobacco type: cigarettes Smoking cigarettes per day: 20.0 Smoking packs per day: 1 Alcohol: alcohol intake: former alcohol intake frequency: holiday/special occasion Substance Use: substance use type: former substance user Dietary Habits: caffeine: Yes Type: carbonated beverages Physical Exam - Physical Exam General Appearance: Present: wd/wn, alert, mild distress Head Exam: Present: normal inspection, no evidence of injury Eye Exam: Normal inspection: bilateral, PERRL: bilateral Ears, Nose, Throat: Present: dry mucous membranes Neck: Present: normal inspection Respiratory: Present: no respiratory distress, normal breath sounds, no accessory muscle use, lungs clear Cardiovascular/Chest: Present: no murmur, tachycardia - 117 Peripheral Pulses: N=norm/S=strong/W=weak/B=bound/A=absent: Dorsalis-pedis (R): Normal, Dorsalis-pedis (L): Normal Gastrointestinal/Abdominal: Present: tenderness, abnormal bowel sounds - Hypoactive all quadrants. Absent: guarding, rebound, mass Extremity Exam: Present: decreased range of motion - pain with flexion, other - Lt Limp, uses cane.. Absent: joint redness, joint swelling Neurological Exam: Present: alert, oriented, normal mood/affect, no motor/sensory deficits Skin Exam: Present: normal color, warm/dry Progress - Date and Time Seen: Date and Time: 07/15/20 17:19 Case and results discussed with , will address care with . Contact with , treat for pancreatitis Results of testing reviewed with patient and at bedside. 07/15/20 18:05 Will admit for medical management of pancreatitis with follow up MRI imaging for additional findings evaluation. This plan was reviewed with and will admit for pancreatitis with plan for MR imaging tomorrow. - Results and Orders Patient's Lab Results:: I have reviewed the patient's lab results. - Vital Signs Patient's Vital Signs:: I have reviewed the patient's vital signs. Vital Signs: Vital Signs 07/15/20 13:13 Temperature 36.5 C Pulse Rate 117 H Respiratory Rate 18 Blood Pressure 111/72 O2 Sat by Pulse Oximetry 95 - X-Ray X-Ray #1 X-Ray: abdomen Interpretation: Reviewed by me X-ray Comments: IMPRESSION: NO ACUTE ABDOMINAL PATHOLOGY IDENTIFIED. Electronically signed by Wilder Hernandez M.D.. - CT/Ultrasound CT/Ultrasound Narrative: IMPRESSION: Acute pancreatitis. There is focal nonocclusive thrombus in the splenic vein. No acute peripancreatic fluid collection. No pancreatic necrosis. No pleural effusion. Indeterminate findings in the right hepatic lobe, as above. Also, there is occlusion of the left common iliac artery. Additional findings and comments are as above. Discussed with REJI Zamarripa via telephone on 07/15/2020 4:59 PM. Electronically signed by Sánchez Godinez D.O.. * 2 ill-defined areas of geographic low attenuation at the dome of the right hepatic lobe as well as the posterior superior right hepatic lobe. Recommend nonemergent pre and postcontrast MRI of the abdomen to further evaluate for an underlying mass *There is occlusion of the left common iliac artery. There is reconstitution of flow at the level of the left external iliac artery *There is focal nonocclusive thrombus within the mid splenic vein at the level the pancreatic body/tail - Progress/Reassessment Chief Complaint: Abdominal Pain Progress:: Improved Departure Clinical Impression: Pancreatitis, Abnormal CT of liver, Iliac artery occlusion, left, Splenic vein thrombosis, Diabetic ketosis - Departure Disposition: Still a patient Condition: Fair
[2020-07-15 13:58] LABS: Hematocrit 36.2 % (42.0-52.0); Hemoglobin 12.5 gm/dL (13.5-18.0); Mean Cell Volume 102.3 fl (78-100); Mean Corpuscular Hemoglobin 35.3 pg (27-31); Mean Corpuscular Hgb Conc 34.5 g/dl (32-36); Mean Platelet Volume 9.9 fl (8-11.3); Platelet Count 386 K/mm3 (150-450); Red Blood Count 3.54 M/mm3 (4.7-6.0); White Blood Count 15.5 K/mm3 (4.0-10.5)
[2020-07-15 13:59] LABS: Urine Bilirubin 1 mg/dl (NEGATIVE); Urine Ketone 15 mg/dL (NEGATIVE); Urine Nitrite Negative (NEGATIVE); Urine Protein 100 mg/dL (NEGATIVE); Urine Urobilinogen Normal (NORMAL)
[2020-07-15 14:01] LABS: Total Cells Counted 100
[2020-07-15 14:17] LABS: Albumin * 2.5 gm/dl (3.4-5.0); Anion Gap 12.5 mmol/L (6.8-13.8); BUN/Creatinine Ratio 19.2 (9.0-21.6); Bilirubin, Total 0.4 mg/dL (0.0-1.1); Ca. Corrected For Albumin 9.7 mg/dL (8.4-10.2); Calcium * 8.8 mg/dL (7.9-10.9); Carbon Dioxide 25.7 mmol/L (24-32.6); Potassium 3.2 mmol/L (3.4-4.6)
[2020-07-15 14:31] LABS: Urine Appearance Clear (CLEAR); Urine Bacteria TRACE; Urine Blood 5 /ul (NEGATIVE); Urine Color Yellow; Urine RBC TRACE /hpf (0-5); Urine WBC TRACE /hpf (0-5)
[2020-07-15] MEDS ORDERED: DIATRIZOATE MEGLUMINE, SODIUM 30 ML BTL PO ONE (14:34)
[2020-07-15 14:40] LABS: Anisocytosis 2+; Band 1 % (0-2.0); Hypersegmented Polys 1+; Lymphocyte 16 % (20-51); Monocyte 4 % (0-9); Neutrophil 79 % (42-75); Neutrophil # 12.2 K/mm3 (1.3-6.0); Platelet Estimate Normal (NORMAL); Polychromasia 1+
[2020-07-15] MEDS ORDERED: INSULIN REGULAR, HUMAN 100 UNITS/ML VIAL IV ONE (14:58)
[2020-07-15] MEDS ORDERED: METOCLOPRAMIDE HCL 5 MG/ML VIAL IV ONE (15:26)
[2020-07-15] MEDS ORDERED: diphenhydrAMINE HCL 50 MG/ML VIAL IV ONE (15:26)
[2020-07-15] MEDS ORDERED: HYDROmorphone HCL 1 MG/ML DISP.SYRIN IV ONE ×2 (15:35→18:29)
[2020-07-15] MEDS: NORMAL SALINE 1,000 ML IV PRN (17:36)
[2020-07-15] MEDS: KETOROLAC TROMETHAMINE 30 MG/ML VIAL IV SCH (22:31)
--- NOTE | 2020-07-15 23:27 | HP ---
Chief Complaint - Chief Complaint Date of Service: 07/15/20 Time of Service: 21:30 Chief Complaint: Abdominal Pain History of Present Illness: Chilango is a 64 yo male that presented to the [facility] ER with abdominal pain that started this past week. He has decreased appetite. Abdominal pain has been getting worse. He denies any symptoms like this before. No change in diet. He reports occasional alcohol but nothing remotely prior to this episode. He was evaluated in the [facility] ER and amylase and lipase levels were elevated. CT showed acute pancreatitis. "Acute pancreatitis. There is focal nonocclusive thrombus in the splenic vein. No acute peripancreatic fluid collection. No pancreatic necrosis. No pleural effusion. Indeterminate findings in the right hepatic lobe, as above. Also, there is occlusion of the left common iliac artery." Medical History (Last Reviewed 07/15/20 @ 20:52 by Alesha Dawkins RN) Acute kidney injury (Acute) Onset Date: Unknown Adjustment disorder with depressed mood (Acute) Onset Date: Unknown Aortic stenosis (Acute) Onset Date: Unknown Atypical chest pain (Acute) Onset Date: Unknown Fracture of hip, right, closed (Acute) Onset Date: Unknown Diabetes mellitus, type II (Chronic) Onset Date: Unknown Diarrhea (Acute) Onset Date: Unknown Facet arthropathy (Acute) Onset Date: Unknown Fracture, femur, head (Acute) Onset Date: Unknown Glaucoma (Acute) Onset Date: Unknown Gout (Acute) Onset Date: Unknown Heart murmur (Acute) Onset Date: Unknown Hyperlipidemia (Chronic) Onset Date: Unknown Hypertension (Chronic) Onset Date: Unknown Iron deficiency anemia (Chronic) Onset Date: Unknown Lumbago (Chronic) Onset Date: Unknown Osteoarthritis, knee (Acute) Onset Date: Unknown TOO (obstructive sleep apnea) (Chronic) Onset Date: Unknown Osteoarthritis of right hip (Acute) Onset Date: Unknown Psychosis (Acute) Onset Date: Unknown Short bowel syndrome (Chronic) Onset Date: Unknown Small bowel obstruction (Acute) Onset Date: Unknown Snoring (Acute) Onset Date: Unknown Subclavian steal syndrome (Chronic) Onset Date: Unknown Syncope and collapse (Acute) Onset Date: Unknown Tachycardia (Acute) Onset Date: Unknown Fibromyalgia Onset Date: Unknown Surgical History: Surgical History (Last Reviewed 07/15/20 @ 20:52 by Alesha Dawkins RN) H/O arthroscopy of left knee Onset Date: ~1977 H/O colectomy Onset Date: ~03/28/[address] Trevor Rivera H/O exploratory laparotomy Onset Date: ~08/10/[address] chester Leija H/O hernia repair Onset Date: ~1954 bilateral History of appendectomy Onset Date: Unknown History of total hip arthroplasty Onset Date: ~06/29/14 Right total hip arthroplasty per Dr Servando Coleman Hx of tonsillectomy Onset Date: Unknown Hx of total knee arthroplasty Onset Date: ~08/02/09 arthroplasty right knee unicompartmental per Dr Servando Coleman Status post shoulder surgery Onset Date: ~05/20/20 Procedure: Right shoulder arthroscopy with mini open rotator cuff repair of the supra and infraspinatus rotator cuff tendons, labral debridement, biceps debridement Dr. Judd Family History: Family History (Last Reviewed 07/15/20 @ 20:53 by Alesha Dawkins RN) Mother Diabetes Heart disease Father Diabetes Myocardial infarction Heart disease Substance abuse Brother 3-DM, HTN athritis 1-heart disease Brother 1-infant crib Son 1-arthritis, 1-healthy, 1-unknown Daughter 1-healthy, 1 OD Son 1-crib Social History: (Last Reviewed 07/15/20 @ 20:53 by Alesha Dawkins RN) Social History: Marital status: household members: spouse current occupational status: disabled current occupation: disabled Highest level of school completed/degree received: GED or equivalent Service: Yes branch: [employer] Tobacco: Smoking Status: Current every day smoker tobacco type: cigarettes Smoking cigarettes per day: 20.0 Smoking packs per day: 1 Alcohol: alcohol intake: former alcohol intake frequency: holiday/special occasion Substance Use: substance use type: former substance user Dietary Habits: caffeine: Yes Type: carbonated beverages Review Of Systems (GEN) - Review of Systems Generalized/Overall Review: Absent: Weakness, Chills, Fever Respiratory: Absent: Cough, Shortness of Breath Cardiac: Absent: Chest Pain, Edema Abdominal: Present: Nausea, Abdominal Pain. Absent: Vomiting, Constipation, Diarrhea Genitourinary: Present: No Symptoms Reported Musculoskeletal: Present: No Symptoms Reported Neurological: Present: No Symptoms Reported Skin: Present: No Symptoms Reported Immunizations: IMMUNIZATION HX Immunizations Up to Date Yes History of Influenza Vaccine Yes Hx Pneumococcal Vaccination No Allergies/Adverse Reactions: Allergies Allergy/AdvReac Type Severity Reaction Status Date / Time Penicillins Allergy Severe upper Verified 07/15/20 13:19 airway edema, hives morphine AdvReac Severe Other Verified 07/15/20 13:19 altered mental status Home Medications: HOME MEDICATIONS omeprazole 40 mg capsule,delayed release 40 mg PO DAILY 07/06/18 [Last Taken Unknown] ropinirole 3 mg tablet 3 mg PO BID 07/06/18 [Last Taken Unknown] amlodipine 5 mg tablet 10 mg PO DAILY 08/17/19 [Last Taken Unknown] Liraglutide [Victoza 2-Johnathan] 0.3 ml SQ DAILY 10/18/19 [Last Taken Unknown] Lisinopril/Hydrochlorothiazide [Lisinopril-Hctz 10-12.5 mg Tab] 12.5 mg PO DAILY 10/18/19 [Last Taken Unknown] diclofenac sodium 1 % topical gel 2 g TP QID #200 g 03/08/20 [Last Taken Unknown] naloxone 4 mg/actuation nasal spray 4 mg JAM Q2M PRN #2 ea 03/08/20 [Last Taken Unknown] Dapagliflozin Propanediol [Farxiga] 15 mg PO QAM 05/23/20 [Last Taken Unknown] Triamcinolone Acetonide [Kenalog 0.1% Cream] 1 appl TP TID 05/23/20 [Last Taken Unknown] Nicotine [Nicoderm] 21 mg TD HS #30 patch.td24 05/27/20 [Last Taken Unknown] diphenoxylate-atropine 2.5 mg-0.025 mg tablet 2 tab PO QID #240 tab 06/04/20 [Last Taken Unknown] loperamide 2 mg capsule 4 mg PO QID #240 cap 06/04/20 [Last Taken Unknown] oxyCODONE HCL/ACETAMINOPHEN [Oxycodone-Acetaminophen 5-325] 1 ea PO Q6H PRN #12 tab 07/01/20 [Last Taken Unknown] Exam - Exam Vital Signs: Vital Signs - Last Taken Temp 36.5 C 07/15/20 20:32 Pulse 110 H 07/15/20 20:32 Resp 18 07/15/20 20:32 BP 139/75 07/15/20 20:32 Pulse Ox 94 07/15/20 20:32 Constitutional: Present: Alert, Oriented x3, Cooperative ENT Exam: Present: hearing grossly normal Eye Exam: bilateral eye: normal inspection Respiratory: Present: lungs clear, normal breath sounds Cardiovascular/Chest: Present: regular rate, rhythm, no murmur Peripheral Pulses: radial (R): 2+, radial (L): 2+ Abdomen: Present: Normal bowel sounds, soft, nontender, nondistended Extremity: Present: normal capillary refill Skin Exam: Present: normal color, warm/dry, no cyanosis Lymphatic: Present: no adenopathy Neurologic: Present: no motor/sensory deficits, alert, normal mood/affect, oriented x 3 Appearance: Present: appropriate appearance, appropriate insight Eye contact: Present: cooperative, good eye contact Thoughts: Present: normal thought pattern, no apparent hallucination Diagnostic Studies: Abnormal Lab Results 07/15/20 07/15/20 07/15/20 Range/Units 13:51 13:51 13:51 WBC 15.5 H (4.0-10.5) K/mm3 RBC 3.54 L (4.7-6.0) M/mm3 Hgb 12.5 L (13.5-18.0) gm/dL Hct 36.2 L (42.0-52.0) % MCV 102.3 H (78-100) fl MCH 35.3 H (27-31) pg RDW 18.0 H (11.5-14.0) % Neutrophils % (Manual) 79 H (42-75) % Lymphocytes % (Manual) 16 L (20-51) % Neutrophils # (Manual) 12.2 H (1.3-6.0) K/mm3 pO2 (83.0-108.0) mmHg Total CO2 (19.0-24.0) mmol/L ABG O2 Sat (Measured) (94.0-98.0) % Sodium 128 L (132-142) mmol/L Potassium 3.2 L (3.4-4.6) mmol/L Chloride 93 L (97-106) mmol/L Random Glucose 379 H (70-110) mg/dL AST 79 H (0-48) U/L ALT 213 H (19-67) U/L Albumin 2.5 L (3.4-5.0) gm/dl Amylase 117 H (25-115) U/L Lipase 737 H (73-393) U/L Urine Protein 100 H (NEGATIVE) mg/dL Urine Glucose (UA) >=1000 H (NEGATIVE) mg/dL Urine Blood 5 H (NEGATIVE) /ul Urine Bilirubin 1 H (NEGATIVE) mg/dl Serum Ketones (NEGATIVE) 07/15/20 07/15/20 Range/Units 13:51 15:10 WBC (4.0-10.5) K/mm3 RBC (4.7-6.0) M/mm3 Hgb (13.5-18.0) gm/dL Hct (42.0-52.0) % MCV (78-100) fl MCH (27-31) pg RDW (11.5-14.0) % Neutrophils % (Manual) (42-75) % Lymphocytes % (Manual) (20-51) % Neutrophils # (Manual) (1.3-6.0) K/mm3 pO2 60.8 L (83.0-108.0) mmHg Total CO2 27.0 H (19.0-24.0) mmol/L ABG O2 Sat (Measured) 91.3 L (94.0-98.0) % Sodium (132-142) mmol/L Potassium (3.4-4.6) mmol/L Chloride (97-106) mmol/L Random Glucose (70-110) mg/dL AST (0-48) U/L ALT (19-67) U/L Albumin (3.4-5.0) gm/dl Amylase (25-115) U/L Lipase (73-393) U/L Urine Protein (NEGATIVE) mg/dL Urine Glucose (UA) (NEGATIVE) mg/dL Urine Blood (NEGATIVE) /ul Urine Bilirubin (NEGATIVE) mg/dl Serum Ketones Positive - 20mg/dl H (NEGATIVE) Laboratory Results WBC 15.5 K/mm3 (4.0-10.5) H 07/15/20 13:51 RBC 3.54 M/mm3 (4.7-6.0) L 07/15/20 13:51 Hgb 12.5 gm/dL (13.5-18.0) L 07/15/20 13:51 Hct 36.2 % (42.0-52.0) L 07/15/20 13:51 MCV 102.3 fl (78-100) H 07/15/20 13:51 MCH 35.3 pg (27-31) H 07/15/20 13:51 MCHC 34.5 g/dl (32-36) 07/15/20 13:51 RDW 18.0 % (11.5-14.0) H 07/15/20 13:51 Plt Count 386 K/mm3 (150-450) 07/15/20 13:51 MPV 9.9 fl (8-11.3) 07/15/20 13:51 Neutrophils % (Manual) 79 % (42-75) H 07/15/20 13:51 Band Neuts % (Manual) 1 % (0-2.0) 07/15/20 13:51 Lymphocytes % (Manual) 16 % (20-51) L 07/15/20 13:51 Monocytes % (Manual) 4 % (0-9) 07/15/20 13:51 Neutrophils # (Manual) 12.2 K/mm3 (1.3-6.0) H 07/15/20 13:51 Lymphocytes # (Manual) 2.5 k/mm3 (1.5-3.5) 07/15/20 13:51 Monocytes # (Manual) 0.6 k/mm3 (0.0-1.0) 07/15/20 13:51 Hypersegmented Polys 1+ 07/15/20 13:51 Platelet Estimate Normal (NORMAL) 07/15/20 13:51 Polychromasia 1+ 07/15/20 13:51 Anisocytosis 2+ 07/15/20 13:51 pCO2 42.6 mmHg (35.0-48.0) 07/15/20 15:10 pO2 60.8 mmHg (83.0-108.0) L 07/15/20 15:10 HCO3 25.7 mmol/L (21.0-28.0) 07/15/20 15:10 Total CO2 27.0 mmol/L (19.0-24.0) H 07/15/20 15:10 Base Excess 0.7 mmol/L (-2.0-3.0) 07/15/20 15:10 ABG pH 7.40 (7.35-7.45) 07/15/20 15:10 ABG O2 Sat (Measured) 91.3 % (94.0-98.0) L 07/15/20 15:10 Sodium 128 mmol/L (132-142) L 07/15/20 13:51 Plasma Sodium 132 mmol/L (130-142) 07/15/20 13:51 Potassium 3.2 mmol/L (3.4-4.6) L 07/15/20 13:51 Chloride 93 mmol/L (97-106) L 07/15/20 13:51 Carbon Dioxide 25.7 mmol/L (24-32.6) 07/15/20 13:51 Anion Gap 12.5 mmol/L (6.8-13.8) 07/15/20 13:51 BUN 19 mg/dL (6-23) 07/15/20 13:51 Creatinine 0.99 mg/dL (0.4-1.4) 07/15/20 13:51 Est GFR (Non-Af Amer) 81 mL/min (60-130) D 07/15/20 13:51 BUN/Creatinine Ratio 19.2 (9.0-21.6) 07/15/20 13:51 Random Glucose 379 mg/dL (70-110) H 07/15/20 13:51 Lactic Acid, Venous 1.8 mmol/L (0.4-2.0) 07/15/20 13:51 Calcium 8.8 mg/dL (7.9-10.9) 07/15/20 13:51 Calcium Adj for Albumin 9.7 mg/dL (8.4-10.2) 07/15/20 13:51 Total Bilirubin 0.4 mg/dL (0.0-1.1) 07/15/20 13:51 AST 79 U/L (0-48) H 07/15/20 13:51 ALT 213 U/L (19-67) H 07/15/20 13:51 Alkaline Phosphatase 141 U/L (50-170) 07/15/20 13:51 Total Protein 7.0 gm/dL (6.2-8.2) 07/15/20 13:51 Albumin 2.5 gm/dl (3.4-5.0) L 07/15/20 13:51 Amylase 117 U/L (25-115) H 07/15/20 13:51 Lipase 737 U/L (73-393) H 07/15/20 13:51 Urine Color Yellow 07/15/20 13:51 Urine Appearance Clear (CLEAR) 07/15/20 13:51 Urine pH 6.0 pH (5.0-7.0) 07/15/20 13:51 Ur Specific [place] 1.020 SP.GR. (1.005-1.030) 07/15/20 13:51 Urine Protein 100 mg/dL (NEGATIVE) H 07/15/20 13:51 Urine Glucose (UA) >=1000 mg/dL (NEGATIVE) H 07/15/20 13:51 Urine Ketones 15 mg/dL (NEGATIVE) 07/15/20 13:51 Urine Blood 5 /ul (NEGATIVE) H 07/15/20 13:51 Urine Nitrate Negative (NEGATIVE) 07/15/20 13:51 Urine Bilirubin 1 mg/dl (NEGATIVE) H 07/15/20 13:51 Urine Urobilinogen Normal EU/dl (NORMAL) 07/15/20 13:51 Ur Leukocyte Esterase Negative /ul (NEGATIVE) 07/15/20 13:51 Urine RBC Trace /hpf (0-5) 07/15/20 13:51 Urine WBC Trace /hpf (0-5) 07/15/20 13:51 Ur Epithelial Cells Trace /hpf (0-5) 07/15/20 13:51 Urine Bacteria Trace (NONE) 07/15/20 13:51 Urine Culture Comments No culture indicated 07/15/20 13:51 Serum Ketones Positive - 20mg/dl (NEGATIVE) H 07/15/20 13:51 SARS-CoV-2 (PCR) Not detected (NotDetected) 07/15/20 17:21 Assessment/Plan - Narrative Narrative: Rayray is a 64 yo male with: Acute Pancreatitis: Unclear etiology. This is a first time episode. He is on HCTZ which can cause pancreatitis. This episode of pancreatitis is mild with the highest enzyme at 700. Imaging shows mild inflammation at tail of pancrease. Will make NPO, give IV fluids, and treat with toradol for pain control and help with inflammation. Will advance diet as able. Diabetic Ketosis: Will make NPO and checks sugars q6hr with humalog sliding scale. No acidosis present. Vascular occlusion present on left iliac. Anticoagulation not recommended. Abnormal CT of liver: Recommend outpatient imaging of liver, either MRI vs MRCP - Assessment/Plan (1) Pancreatitis Problem: Acute Qualifiers: Chronicity: acute Pancreatitis type: unspecified pancreatitis type Acute pancreatitis complication: unspecified Qualified Code(s): K85.90 - Acute pancreatitis without necrosis or infection, unspecified (2) Iliac artery occlusion, left Problem: Acute (3) Splenic vein thrombosis Problem: Acute (4) Diabetic ketosis Problem: Acute (5) Abnormal CT of liver Problem: Acute
[2020-07-15] MEDS ORDERED: ENOXAPARIN SODIUM 40 MG/0.4 ML SYRG SC SCH (23:30)
[2020-07-16] MEDS: INSULIN LISPRO 100 UNITS/ML VIAL SC SCH ×4 (00:24→16:54)
[2020-07-16] MEDS: KETOROLAC TROMETHAMINE 30 MG/ML VIAL IV SCH ×3 (04:11→15:34)
[2020-07-16] MEDS: NORMAL SALINE 1,000 ML IV PRN ×2 (05:10→09:42)
[2020-07-16 08:37] LABS: Hematocrit 35.4 % (42.0-52.0); Mean Cell Volume 104.4 fl (78-100); Mean Corpuscular Hemoglobin 35.4 pg (27-31); Mean Corpuscular Hgb Conc 33.9 g/dl (32-36); NRBC# 0.1 k/mm3 (0-1); Neutrophil # 10.5 K/mm3 (1.3-6.0); Neutrophil % 76.3 % (42-75.0); Platelet Count 340 K/mm3 (150-450); Red Blood Count 3.39 M/mm3 (4.7-6.0); Red Cell Distribution Width 18.1 % (11.5-14.0); White Blood Count 13.8 K/mm3 (4.0-10.5)
[2020-07-16 08:56] LABS: Albumin * 2.1 gm/dl (3.4-5.0); Anion Gap 15.4 mmol/L (6.8-13.8); Bilirubin, Total 0.4 mg/dL (0.0-1.1); Ca. Corrected For Albumin 9.6 mg/dL (8.4-10.2); Calcium * 8.4 mg/dL (7.9-10.9); Carbon Dioxide 22.5 mmol/L (24-32.6); Potassium 2.9 mmol/L (3.4-4.6); Total Protein 5.9 gm/dL (6.2-8.2)
[2020-07-16] MEDS ORDERED: rOPINIRole HCL 1 MG TABLET PO SCH (09:00)
[2020-07-16] MEDS: DICLOFENAC SODIUM 100 APPL TUBE TP SCH ×3 (09:37→16:52)
[2020-07-16] MEDS ORDERED: POTASSIUM CHLORIDE 20 MEQ TABLET.SA PO ONE (12:04)
--- NOTE | 2020-07-16 18:13 | DS ---
(1) Pancreatitis Problem: Resolved Qualifiers: Chronicity: acute Pancreatitis type: unspecified pancreatitis type Acute pancreatitis complication: unspecified Qualified Code(s): K85.90 - Acute pancreatitis without necrosis or infection, unspecified (2) Iliac artery occlusion, left Problem: Acute (3) Splenic vein thrombosis Problem: Acute (4) Diabetic ketosis Problem: Resolved (5) Abnormal CT of liver Problem: Acute Date of Discharge:: 07/16/20 Hospital Course: Rayray was admitted for acute pancreatitis of unknown etiology. He was made NPO and given IV fluids. He was treated with Toradol for pain and pancreatic inflammation. His pain resolved and his appetite returned. On the following day his diet was advanced and tolerated. He will be discharged to home with a follow up with Dr. Willams. He had some abnormal findings on his Abdominal CT scan that need outpatient follow up. He had an abnormal CT of his liver that needs either MRI of the liver or MRCP to further evaluate abnormality seen on CT. He also had vascular abnormalties seen with left common iliac occlusion and splenic vein thrombus. The left iliac has colateral flow. Literature reviewed showed no recommendation for anticoagulation of this thrombus. Will have him follow up with Dr. Tomer Aquino to review and consider outpatient testing. Procedures Performed: none Results and Findings: Lab Pending Results 07/15/20 13:51: WBC 15.5 H, RBC 3.54 L, Hgb 12.5 L, Hct 36.2 L, MCV 102.3 H, MCH 35.3 H, MCHC 34.5, RDW 18.0 H, Plt Count 386, MPV 9.9, Neutrophils % (Manual) 79 H, Band Neuts % (Manual) 1, Lymphocytes % (Manual) 16 L, Monocytes % (Manual) 4, Neutrophils # (Manual) 12.2 H, Lymphocytes # (Manual) 2.5, Monocytes # (Manual) 0.6, Hypersegmented Polys 1+, Platelet Estimate Normal, Polychromasia 1+, Anisocytosis 2+ 07/15/20 13:51: Sodium 128 L, Plasma Sodium 132, Potassium 3.2 L, Chloride 93 L, Carbon Dioxide 25.7, Anion Gap 12.5, BUN 19, Creatinine 0.99, Est GFR (Non-Af Amer) 81 D, BUN/Creatinine Ratio 19.2, Random Glucose 379 H, Calcium 8.8, Calcium Adj for Albumin 9.7, Total Bilirubin 0.4, AST 79 H, ALT 213 H, Alkaline Phosphatase 141, Total Protein 7.0, Albumin 2.5 L, Amylase 117 H, Lipase 737 H 07/15/20 13:51: Urine Color Yellow, Urine Appearance Clear, Urine pH 6.0, Ur Specific [place] 1.020, Urine Protein 100 H, Urine Glucose (UA) >=1000 H, Urine Ketones 15, Urine Blood 5 H, Urine Nitrate Negative, Urine Bilirubin 1 H, Urine Urobilinogen Normal, Ur Leukocyte Esterase Negative, Urine RBC Trace, Urine WBC Trace, Ur Epithelial Cells Trace, Urine Bacteria Trace, Urine Culture Comments No culture indicated 07/15/20 13:51: Serum Ketones Positive - 20mg/dl H 07/15/20 13:51: Lactic Acid, Venous 1.8 07/15/20 15:10: pCO2 42.6, pO2 60.8 L, HCO3 25.7, Total CO2 27.0 H, Base Excess 0.7, ABG pH 7.40, ABG O2 Sat (Measured) 91.3 L 07/15/20 17:21: SARS-CoV-2 (PCR) Not detected 07/16/20 08:30: WBC 13.8 H, RBC 3.39 L, Hgb 12.0 L, Hct 35.4 L, MCV 104.4 H, MCH 35.4 H, MCHC 33.9, RDW 18.1 H, Plt Count 340, MPV 10.0, Immature Gran % (Auto) 1.30 H, Immature Gran # (Auto) 0.18 H, Neutrophils % 76.3 H, Lymphocytes % 14.2 L, Monocytes % 7.5, Eosinophils % 0.4, Basophils % 0.3, Nucleated RBC % 0.1, Neutrophils # 10.5 H, Lymphocytes # 1.96, Monocytes # 1.0, Eosinophils # 0.1, Absolute Basophils 0.0 07/16/20 08:30: Sodium 135, Plasma Sodium 136, Potassium 2.9 L, Chloride 100, Carbon Dioxide 22.5 L, Anion Gap 15.4 H, BUN 17, Creatinine 0.74, Est GFR (Non- Af Amer) 113 D, BUN/Creatinine Ratio 23.0 H, Random Glucose 187 H D, Calcium 8.4, Calcium Adj for Albumin 9.6, Total Bilirubin 0.4, AST 41, ALT 130 H, Alkaline Phosphatase 113, Total Protein 5.9 L, Albumin 2.1 L, Amylase 117 H, Lipase 571 H Discharge Location: Home Disposition: Home self-care Condition: Fair Discharge Activity: Activity as tolerated Discharge Diet: Consistent carbs Referrals: Emir Rodriguez MD [Primary Care Provider] - One Week Problem Oriented Discharge Instructions to Patient/Family: Acute Pancreatitis, [id number] Additional Patient Instructions (free text): TCM appointment at discharge. Complete Home Medications List: Complete Home Medication List: omeprazole 40 mg capsule,delayed release 40 mg PO DAILY 07/06/18 ropinirole 3 mg tablet 3 mg PO BID 07/06/18 amlodipine 5 mg tablet 10 mg PO DAILY 08/17/19 Liraglutide [Victoza 2-Johnathan] 0.3 ml SQ DAILY 10/18/19 Lisinopril/Hydrochlorothiazide [Lisinopril-Hctz 10-12.5 mg Tab] 12.5 mg PO DAILY 10/18/19 diclofenac sodium 1 % topical gel 2 g TP QID #200 g 03/08/20 naloxone 4 mg/actuation nasal spray 4 mg JAM Q2M PRN #2 ea 03/08/20 Dapagliflozin Propanediol [Farxiga] 10 mg PO QAM 05/23/20 Triamcinolone Acetonide [Kenalog 0.1% Cream] 1 appl TP TID 05/23/20 Nicotine [Nicoderm] 21 mg TD HS #30 patch.td24 05/27/20 diphenoxylate-atropine 2.5 mg-0.025 mg tablet 2 tab PO QID #240 tab 06/04/20 loperamide 2 mg capsule 4 mg PO QID #240 cap 06/04/20 oxyCODONE HCL/ACETAMINOPHEN [Oxycodone-Acetaminophen 5-325] 1 ea PO Q6H PRN #12 tab 07/01/20 ARIPiprazole [Abilify] 5 mg PO HS 07/16/20 Bupropion HCl [Bupropion Xl] 300 mg PO DAILY 07/16/20 Cholestyramine/Aspartame [Cholestyramine Light Packet] 4 gm PO BID 07/16/20 Cyclobenzaprine HCl 10 mg PO QID 07/16/20 Dicyclomine HCl 20 mg PO QID 07/16/20 Duloxetine HCl 60 mg PO BID 07/16/20 Fluconazole [Diflucan] 200 mg PO DAILY 07/16/20 Pregabalin [Lyrica] 100 mg PO TID 07/16/20 Topiramate [Topamax] 25 mg PO BID 07/16/20 diphenhydrAMINE HCL [Benadryl] 25 - 50 mg PO HS PRN 07/16/20 traZODone HCL [Trazodone HCl] 300 mg PO HS 07/16/20 Forms: Patient Portal Registration
[2020-07-16 19:35] VITALS: BP 115/60
[2020-07-16] MEDS ORDERED: NICOTINE 21 MG PATC TD SCH (21:00)
== END 2020-07-16 19:15 | disposition home or self-care (01) ==
LOC: ER 13:08 → MS 18:37 → INTOOBSV 20:07
PROVIDERS: ADMIT Family Medicine; ATTEND Allergy & Immunology
DX: E11.10 Type 2 diabetes mellitus with ketoacidosis without coma; Z72.0 Tobacco use; R93.2 Abnormal findings on diagnostic imaging of liver and biliary tract; R10.9 Unspecified abdominal pain; K85.90 Acute pancreatitis without necrosis or infection, unspecified; I82.890 Acute embolism and thrombosis of other specified veins; R11.2 Nausea with vomiting, unspecified; I74.5 Embolism and thrombosis of iliac artery

== ENCOUNTER 2020-07-25 12:14 | Inpatient (IN) ==
--- NOTE | 2020-07-25 14:05 | ERNOTE ---
Back Pain ER HPI Date of Service: 07/25/20 Presenting Symptoms: hx chronic back pain Time Seen by Provider: 07/25/20 13:46 Source: patient, RN/MD Immunizations: IMMUNIZATION HX Immunizations Up to Date No History of Influenza Vaccine No Hx Pneumococcal Vaccination Yes Allergies/Adverse Reactions: Allergies Penicillins Allergy (Severe, Verified 07/25/20 12:37) upper airway edema, hives morphine Adverse Reaction (Severe, Verified 07/25/20 12:37) Other altered mental status pt's daughter states that pt had a severe reation to Morphine once, causing severe AMS,confusion- taking 5 days/hospitalization to return to normal mentation Home Medications: HOME MEDICATIONS omeprazole 40 mg capsule,delayed release 40 mg PO DAILY 07/06/18 [Last Taken Unknown] ropinirole 3 mg tablet 3 mg PO BID 07/06/18 [Last Taken Unknown] amlodipine 5 mg tablet 10 mg PO DAILY 08/17/19 [Last Taken Unknown] Lisinopril/Hydrochlorothiazide [Lisinopril-Hctz 10-12.5 mg Tab] 12.5 mg PO DAILY 10/18/19 [Last Taken Unknown] diclofenac sodium 1 % topical gel 2 g TP QID #200 g 03/08/20 [Last Taken Unknown] naloxone 4 mg/actuation nasal spray 4 mg JAM Q2M PRN #2 ea 03/08/20 [Last Taken Unknown] Dapagliflozin Propanediol [Farxiga] 10 mg PO QAM 05/23/20 [Last Taken Unknown] Triamcinolone Acetonide [Kenalog 0.1% Cream] 1 appl TP TID 05/23/20 [Last Taken Unknown] Nicotine [Nicoderm] 21 mg TD HS #30 patch.td24 05/27/20 [Last Taken Unknown] diphenoxylate-atropine 2.5 mg-0.025 mg tablet 2 tab PO QID #240 tab 06/04/20 [Last Taken Unknown] loperamide 2 mg capsule 4 mg PO QID #240 cap 06/04/20 [Last Taken Unknown] ARIPiprazole [Abilify] 5 mg PO HS 07/16/20 [Last Taken Unknown] Bupropion HCl [Bupropion Xl] 300 mg PO DAILY 07/16/20 [Last Taken Unknown] Cholestyramine/Aspartame [Cholestyramine Light Packet] 4 gm PO BID 07/16/20 [Last Taken Unknown] Cyclobenzaprine HCl 10 mg PO QID 07/16/20 [Last Taken Unknown] Dicyclomine HCl 20 mg PO QID 07/16/20 [Last Taken Unknown] Duloxetine HCl 60 mg PO BID 07/16/20 [Last Taken Unknown] Fluconazole [Diflucan] 200 mg PO DAILY 07/16/20 [Last Taken Unknown] Pregabalin [Lyrica] 100 mg PO TID 07/16/20 [Last Taken Unknown] Topiramate [Topamax] 25 mg PO BID 07/16/20 [Last Taken Unknown] diphenhydrAMINE HCL [Benadryl] 25 - 50 mg PO HS PRN 07/16/20 [Last Taken Unknown] traZODone HCL [Trazodone HCl] 300 mg PO HS 07/16/20 [Last Taken Unknown] liraglutide 0.6 mg/0.1 mL (18 mg/3 mL) subcutaneous pen injector 1.8 mg SUBCUT DAILY #9 ml 07/18/20 [Last Taken Unknown] oxycodone-acetaminophen 5 mg-325 mg tablet 1 tab PO Q6H PRN #10 tab 07/23/20 [Last Taken Unknown] Narrative: This patient is a 64-year-old gentleman who is here to be checked for pancreatitis. He has some problems with chronic back pain. He saw his doctor today and said that this felt like his prior episode of pancreatitis. His doctor sent him here for further evaluation. The patient indicates that he had some abdominal discomfort at the last visit where pancreatitis was diagnosed. He does not have abdominal pain at this time. He does have a history of gallstones. He does not drink alcohol. He has had no fever. 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 He has a chronic nonhealing abdominal wound. Review of Systems - Review of Systems Constitutional: Absent: fever, weight loss EYE: Present: no symptoms reported ENT: Absent: ear pain, nose congestion, nasal drainage, sore throat Respiratory: Absent: shortness of breath, cough Cardiology: Absent: chest pain, palpitations, syncope Gastrointestinal/Abdominal: Present: diarrhea - Chronic. Absent: nausea, vomiting, constipation, abdominal pain, eating less, drinking less Genitourinary: Absent: frequency, pain, dysuria, hematuria Musculoskeletal: Present: back pain - Chronic Skin: Present: See HPI Neurological: Absent: headache, dizziness/light-headedness Endocrine: Present: no symptoms reported Hematologic/Lymphatic: Present: other - No active bleeding Psych: Present: no symptoms reported Medical History (Last Reviewed 07/25/20 @ 14:03 by Zoltan Wilder MD) Acute kidney injury (Acute) Onset Date: Unknown Adjustment disorder with depressed mood (Acute) Onset Date: Unknown Aortic stenosis (Acute) Onset Date: Unknown Atypical chest pain (Acute) Onset Date: Unknown Fracture of hip, right, closed (Acute) Onset Date: Unknown Diabetes mellitus, type II (Chronic) Onset Date: Unknown Diarrhea (Acute) Onset Date: Unknown Facet arthropathy (Acute) Onset Date: Unknown Fracture, femur, head (Acute) Onset Date: Unknown Glaucoma (Acute) Onset Date: Unknown Gout (Acute) Onset Date: Unknown Heart murmur (Acute) Onset Date: Unknown Hyperlipidemia (Chronic) Onset Date: Unknown Hypertension (Chronic) Onset Date: Unknown Iron deficiency anemia (Chronic) Onset Date: Unknown Lumbago (Chronic) Onset Date: Unknown Osteoarthritis, knee (Acute) Onset Date: Unknown TOO (obstructive sleep apnea) (Chronic) Onset Date: Unknown Osteoarthritis of right hip (Acute) Onset Date: Unknown Psychosis (Acute) Onset Date: Unknown Short bowel syndrome (Chronic) Onset Date: Unknown Small bowel obstruction (Acute) Onset Date: Unknown Snoring (Acute) Onset Date: Unknown Subclavian steal syndrome (Chronic) Onset Date: Unknown Syncope and collapse (Acute) Onset Date: Unknown Tachycardia (Acute) Onset Date: Unknown Fibromyalgia Onset Date: Unknown Surgical History: Surgical History (Last Reviewed 07/25/20 @ 14:03 by Zoltan Wilder MD) H/O arthroscopy of left knee Onset Date: ~1977 H/O colectomy Onset Date: ~03/28/[address] Trevor Rivera H/O exploratory laparotomy Onset Date: ~08/10/[address] chester Leija H/O hernia repair Onset Date: ~1954 bilateral History of appendectomy Onset Date: Unknown History of total hip arthroplasty Onset Date: ~06/29/14 Right total hip arthroplasty per Dr Servando Coleman Hx of tonsillectomy Onset Date: Unknown Hx of total knee arthroplasty Onset Date: ~08/02/09 arthroplasty right knee unicompartmental per Dr Servando Coleman Status post shoulder surgery Onset Date: ~05/20/20 Procedure: Right shoulder arthroscopy with mini open rotator cuff repair of the supra and infraspinatus rotator cuff tendons, labral debridement, biceps debridement Dr. Judd Family History: Family History (Last Reviewed 07/25/20 @ 14:03 by Zoltan Wilder MD) Mother Heart disease Diabetes Father Substance abuse Heart disease Myocardial infarction Diabetes Brother 3-DM, HTN athritis 1-heart disease Brother 1- crib Son 1-arthritis, 1-healthy, 1-unknown Daughter 1-healthy, 1 OD Son 1-crib Social History: (Last Reviewed 07/25/20 @ 14:03 by Zoltan Wilder MD) Social History: Marital status: household members: spouse current occupational status: disabled current occupation: disabled Highest level of school completed/degree received: GED or equivalent Service: Yes branch: [employer] Tobacco: Smoking Status: Current every day smoker tobacco type: cigarettes Smoking cigarettes per day: 20.0 Smoking packs per day: 1 Alcohol: alcohol intake: former alcohol intake frequency: holiday/special occasion Substance Use: substance use type: former substance user Dietary Habits: caffeine: Yes Type: carbonated beverages Physical Exam - Physical Exam General Appearance: Present: alert, no apparent distress, other - Elderly and kyphotic. Head Exam: Present: normal inspection, no evidence of injury Eye Exam: Normal inspection: bilateral Ears, Nose, Throat: Present: normal ENT inspection Neck: Present: normal inspection Respiratory: Present: no respiratory distress, normal breath sounds, no accessory muscle use, lungs clear Cardiovascular/Chest: Present: regular rate, rhythm, systolic murmur Gastrointestinal/Abdominal: Present: normal bowel sounds, nondistended, soft, no organomegaly, tenderness - Diffuse upper abdomen., other - He Back Exam: Present: normal inspection, no CVA tenderness, no vertebral tenderness, decreased range of motion - Kyphotic Extremity Exam: Present: normal inspection Neurological Exam: Present: alert, oriented, normal mood/affect Skin Exam: Present: normal color, warm/dry Progress - Results and Orders Patient's Lab Results:: I have reviewed the patient's lab results. Results and Orders: Laboratory Tests 07/25/20 07/25/20 07/25/20 14:05 14:05 14:05 WBC 15.8 H RBC 3.71 L Hgb 12.5 L Hct 37.8 L MCV 101.9 H MCH 33.7 H MCHC 33.1 RDW 17.7 H Plt Count 478 H MPV 9.3 Immature Gran % (Auto) 0.50 H Immature Gran # (Auto) 0.08 H Neutrophils % 84.7 H Lymphocytes % 8.1 L Monocytes % 6.1 Eosinophils % 0.3 Basophils % 0.3 Nucleated RBC % 0.0 Neutrophils # 13.4 H Lymphocytes # 1.28 L Monocytes # 1.0 Eosinophils # 0.1 Absolute Basophils 0.0 pCO2 pO2 HCO3 Total CO2 Base Excess ABG pH VBG O2 Saturation Sodium 122 L Plasma Sodium 137 Potassium 4.6 D Chloride 93 L Carbon Dioxide 20.3 L Anion Gap 13.3 BUN 19 Creatinine 1.49 H D Est GFR (Non-Af Amer) 50 L D BUN/Creatinine Ratio 12.8 Random Glucose Calcium 9.4 Calcium Adj for Albumin 9.9 Total Bilirubin 0.4 AST 12 ALT 25 Alkaline Phosphatase 112 Total Protein 7.2 Albumin 3.0 L Lipase 1139 H Serum Ketones Negative 07/25/20 15:05 WBC RBC Hgb Hct MCV MCH MCHC RDW Plt Count MPV Immature Gran % (Auto) Immature Gran # (Auto) Neutrophils % Lymphocytes % Monocytes % Eosinophils % Basophils % Nucleated RBC % Neutrophils # Lymphocytes # Monocytes # Eosinophils # Absolute Basophils pCO2 35.9 pO2 64.9 H HCO3 18.9 L Total CO2 20.0 L Base Excess -6.1 L ABG pH 7.34 VBG O2 Saturation 91.8 L Sodium Plasma Sodium Potassium Chloride Carbon Dioxide Anion Gap BUN Creatinine Est GFR (Non-Af Amer) BUN/Creatinine Ratio Random Glucose Calcium Calcium Adj for Albumin Total Bilirubin AST ALT Alkaline Phosphatase Total Protein Albumin Lipase Serum Ketones - Vital Signs Patient's Vital Signs:: I have reviewed the patient's vital signs. Vital Signs: Vital Signs 07/25/20 12:32 Temperature 36.6 C Pulse Rate 109 H Respiratory Rate 16 Blood Pressure 135/73 O2 Sat by Pulse Oximetry 97 - CT/Ultrasound CT/Ultrasound Narrative: CT Abdomen/Pelvis W/C *~ Exam Date: 07/25/2020 16:22 Ordering Physician: Zoltan Wilder MD CT Abdomen/Pelvis W/C * INDICATION: Elevated lipase. History of pancreatitis, 10 days ago, increased white count, right lower back pain since yesterday, nausea. TECHNIQUE: CT of the abdomen and pelvis with Isovue-370 IV contrast including delayed images. Coronal reformatted images were performed. Oral contrast was administered. COMPARISON: CT abdomen pelvis dated 07/15/2020. FINDINGS: No free air or fluid collection. Lower chest: The visualized lower lungs are aerated. No pleural or pericardial effusion. ABDOMEN: Liver: Hepatomegaly. Diffuse hepatic steatosis. Unchanged indeterminate low- density lesions at the periphery of the right hepatic lobe. Gallbladder and biliary: Underdistended gallbladder. Normal caliber bile ducts. Spleen: New, small peripheral wedge-shaped hypodensity at the spleen. Pancreas: Persistent peripancreatic inflammatory changes. No nonenhancing pancreas to suggest necrotizing pancreatitis. No walled off fluid collection. Adrenal glands: Bilateral. Kidneys and ureters: Right renal cyst. Otherwise, the kidneys are normal. GI tract: The stomach is decompressed and poorly evaluated. Small bowel and colon are of normal caliber. Appendectomy. Vascular structures: Calcified and noncalcified atherosclerotic plaque of the abdominal aorta and its branches. Apparent complete opacification at the origin of the left common iliac artery. Segmental stenosis throughout the right common and external iliac artery. The celiac artery, SMA, bilateral renal arteries, and TAMMY are patent. Portal and mesenteric venous structures are patent. There is a thrombus in the splenic vein again visualized. Lymph nodes: No lymphadenopathy in the abdomen or pelvis. PELVIS: Genitourinary system: Normal uterus and ovaries. Normal prostate gland and seminal vesicles. SKELETAL STRUCTURES AND SOFT TISSUES: Small fat-containing left inguinal hernia. No fracture or destructive lesions in the visualized skeleton. IMPRESSION: 1. Persistent acute pancreatitis. No nonenhancing pancreas to suggest necrotizing pancreatitis. No walled off fluid collection. 2. Splenic vein thrombosis again visualized. New peripheral hypodensity in the spleen which likely represents a new small splenic infarct. 3. Persistent hypodensities within the right hepatic lobe which are indeterminate. Differentials are broad and include potential liver abscesses, or underlying neoplasm, among other possibilities. Recommend further evaluation with an MRI of the liver following hepatic mass protocol with and without contrast. 4. Severe atherosclerosis of the abdominal aorta and its branches with complete occlusion of the left common iliac artery and segmental stenosis throughout the right common and external iliac arteries. Electronically signed by Anastasia Maier D.O.. - Progress/Reassessment Chief Complaint: Back Pain Plan - Plan Plan: He received IV fluids and IV insulin. His first recheck of blood sugar was still high. He received more insulin and will be receiving more fluids. The next check is pending. I talked the patient about the CT findings. I spoke with Dr. Huerta who agrees to admit the patient. Departure Clinical Impression: Splenic vein thrombosis, Abnormal CT of liver, Chronic low back pain, Panc reatitis, Hyperglycemia - Departure Disposition: Still a patient Condition: Fair Referrals: Emir Rodriguez MD [Primary Care Provider] -
[2020-07-25 14:11] LABS: Hematocrit 37.8 % (42.0-52.0); Hemoglobin 12.5 gm/dL (13.5-18.0); Mean Cell Volume 101.9 fl (78-100); Mean Corpuscular Hemoglobin 33.7 pg (27-31); Mean Corpuscular Hgb Conc 33.1 g/dl (32-36); Mean Platelet Volume 9.3 fl (8-11.3); Neutrophil # 13.4 K/mm3 (1.3-6.0); Neutrophil % 84.7 % (42-75.0); Platelet Count 478 K/mm3 (150-450); Red Blood Count 3.71 M/mm3 (4.7-6.0); Red Cell Distribution Width 17.7 % (11.5-14.0); White Blood Count 15.8 K/mm3 (4.0-10.5)
[2020-07-25 14:23] LABS: Anion Gap 13.3 mmol/L (6.8-13.8); BUN/Creatinine Ratio 12.8 (9.0-21.6); Bilirubin, Total 0.4 mg/dL (0.0-1.1); Ca. Corrected For Albumin 9.9 mg/dL (8.4-10.2); Calcium * 9.4 mg/dL (7.9-10.9); Carbon Dioxide 20.3 mmol/L (24-32.6); Potassium 4.6 mmol/L (3.4-4.6); Total Protein 7.2 gm/dL (6.2-8.2)
[2020-07-25] MEDS ORDERED: NORMAL SALINE 1,000 ML IV ONE ×2 (14:49→17:49)
[2020-07-25] MEDS ORDERED: INSULIN REGULAR, HUMAN 100 UNITS/ML VIAL IV ONE ×2 (14:50→16:28)
[2020-07-25] MEDS ORDERED: DIATRIZOATE MEGLUMINE, SODIUM 30 ML BTL ONE (14:55)
[2020-07-25 15:11] LABS: Venous Blood Gas HCO3 18.9 mmol/L (22.0-29.0); Venous Blood Gas pH 7.34 (7.32-7.43)
[2020-07-25 15:26] LABS: Urine Bilirubin Negative (NEGATIVE); Urine Blood Negative /ul (NEGATIVE); Urine Ketone Negative (NEGATIVE); Urine Nitrite Negative (NEGATIVE); Urine Protein Negative (NEGATIVE); Urine Specific Gravity <=1.005 SP.GR. (1.005-1.030); Urine Urobilinogen Normal (NORMAL)
[2020-07-25] MEDS ORDERED: HYDROmorphone HCL 1 MG/ML DISP.SYRIN IV ONE (15:30)
[2020-07-25 15:50] LABS: Urine Appearance Clear (CLEAR); Urine Color Pale Yellow; Urine RBC None Seen /hpf (0-5); Urine WBC None Seen /hpf (0-5)
[2020-07-25 15:51] LABS: Urine Bacteria None Seen
[2020-07-25] MEDS ORDERED: INSULIN LISPRO 100 UNITS/ML VIAL SC ONE (20:35)
--- NOTE | 2020-07-25 22:23 | HP ---
Chief Complaint - Chief Complaint Date of Service: 07/25/20 Time of Service: 21:00 Chief Complaint: Back pain History of Present Illness: Chilango is a 64 yo male who presents to the [facility] ER with back pain similar to what he had last week when he was hospitalized with pancreatitis. He was seen in follow up in the clinic but with the return of his pain was sent to the ER to be evaluated. Lipase in the ER was 1139. He denies alcohol and has been following a low fat diet. He does not know why his pancreatitis would have returned. He reports he had been doing well since being discharged from the hospital and only had return of the pain today. He has not eaten anything today as he knew to not eat when the pain returned. He denies nausea or vomiting and reports that he feels hungry, he just chose not to eat. He can't think of any thing else different that he has done in the last two days. CT showed similar findings as last week. There does appear to be a new splenic infarct. Medical History (Last Reviewed 07/25/20 @ 14:05 by Keshav Posadas RN) Acute kidney injury (Acute) Onset Date: Unknown Adjustment disorder with depressed mood (Acute) Onset Date: Unknown Aortic stenosis (Acute) Onset Date: Unknown Atypical chest pain (Acute) Onset Date: Unknown Fracture of hip, right, closed (Acute) Onset Date: Unknown Diabetes mellitus, type II (Chronic) Onset Date: Unknown Diarrhea (Acute) Onset Date: Unknown Facet arthropathy (Acute) Onset Date: Unknown Fracture, femur, head (Acute) Onset Date: Unknown Glaucoma (Acute) Onset Date: Unknown Gout (Acute) Onset Date: Unknown Heart murmur (Acute) Onset Date: Unknown Hyperlipidemia (Chronic) Onset Date: Unknown Hypertension (Chronic) Onset Date: Unknown Iron deficiency anemia (Chronic) Onset Date: Unknown Lumbago (Chronic) Onset Date: Unknown Osteoarthritis, knee (Acute) Onset Date: Unknown TOO (obstructive sleep apnea) (Chronic) Onset Date: Unknown Osteoarthritis of right hip (Acute) Onset Date: Unknown Psychosis (Acute) Onset Date: Unknown Short bowel syndrome (Chronic) Onset Date: Unknown Small bowel obstruction (Acute) Onset Date: Unknown Snoring (Acute) Onset Date: Unknown Subclavian steal syndrome (Chronic) Onset Date: Unknown Syncope and collapse (Acute) Onset Date: Unknown Tachycardia (Acute) Onset Date: Unknown Fibromyalgia Onset Date: Unknown Surgical History: Surgical History (Last Reviewed 07/25/20 @ 14:05 by Keshav Posadas RN) H/O arthroscopy of left knee Onset Date: ~1977 H/O colectomy Onset Date: ~03/28/[address] Trevor Rivera H/O exploratory laparotomy Onset Date: ~08/10/[address] chester Leija H/O hernia repair Onset Date: ~1954 bilateral History of appendectomy Onset Date: Unknown History of total hip arthroplasty Onset Date: ~06/29/14 Right total hip arthroplasty per Dr Servando Coleman Hx of tonsillectomy Onset Date: Unknown Hx of total knee arthroplasty Onset Date: ~08/02/09 arthroplasty right knee unicompartmental per Dr Servando Coleman Status post shoulder surgery Onset Date: ~05/20/20 Procedure: Right shoulder arthroscopy with mini open rotator cuff repair of the supra and infraspinatus rotator cuff tendons, labral debridement, biceps debridement Dr. Judd Family History: Family History (Last Reviewed 07/25/20 @ 14:05 by Keshav Posadas RN) Mother Diabetes Heart disease Father Diabetes Myocardial infarction Heart disease Substance abuse Brother 3-DM, HTN athritis 1-heart disease Brother 1-infant crib Son 1-arthritis, 1-healthy, 1-unknown Daughter 1-healthy, 1 OD Son 1-crib infant Social History: (Last Reviewed 07/25/20 @ 14:05 by Keshav Posadas RN) Social History: Marital status: household members: spouse current occupational status: disabled current occupation: disabled Highest level of school completed/degree received: GED or equivalent Service: Yes branch: [employer] Tobacco: Smoking Status: Current every day smoker tobacco type: cigarettes Smoking cigarettes per day: 20.0 Smoking packs per day: 1 Alcohol: alcohol intake: former alcohol intake frequency: holiday/special occasion Substance Use: substance use type: former substance user Dietary Habits: caffeine: Yes Type: carbonated beverages Review Of Systems (GEN) - Review of Systems Generalized/Overall Review: Absent: Weakness, Chills, Fever Respiratory: Absent: Cough, Shortness of Breath Cardiac: Absent: Chest Pain, Edema, Palpitations, Syncope Abdominal: Absent: Nausea, Vomiting, Hematemesis, Abdominal Pain, Constipation, Diarrhea, Melena Genitourinary: Absent: Burning, Frequency Musculoskeletal: Present: Back Pain, Muscle Pain Neurological: Absent: Headache, Anxiety Skin: Absent: Lesions, Lumps, Rash Immunizations: IMMUNIZATION HX Immunizations Up to Date No History of Influenza Vaccine No Hx Pneumococcal Vaccination Yes Allergies/Adverse Reactions: Allergies Allergy/AdvReac Type Severity Reaction Status Date / Time Penicillins Allergy Severe upper Verified 07/25/20 12:37 airway edema, hives morphine AdvReac Severe Other Verified 07/25/20 12:37 altered mental status Home Medications: HOME MEDICATIONS omeprazole 40 mg capsule,delayed release 40 mg PO DAILY 07/06/18 [Last Taken Unknown] ropinirole 3 mg tablet 3 mg PO BID 07/06/18 [Last Taken Unknown] amlodipine 5 mg tablet 10 mg PO DAILY 08/17/19 [Last Taken Unknown] Lisinopril/Hydrochlorothiazide [Lisinopril-Hctz 10-12.5 mg Tab] 12.5 mg PO DAILY 10/18/19 [Last Taken Unknown] diclofenac sodium 1 % topical gel 2 g TP QID #200 g 03/08/20 [Last Taken Unknown] naloxone 4 mg/actuation nasal spray 4 mg JAM Q2M PRN #2 ea 03/08/20 [Last Taken Unknown] Dapagliflozin Propanediol [Farxiga] 10 mg PO QAM 05/23/20 [Last Taken Unknown] Triamcinolone Acetonide [Kenalog 0.1% Cream] 1 appl TP TID 05/23/20 [Last Taken Unknown] Nicotine [Nicoderm] 21 mg TD HS #30 patch.td24 05/27/20 [Last Taken Unknown] diphenoxylate-atropine 2.5 mg-0.025 mg tablet 2 tab PO QID #240 tab 06/04/20 [Last Taken Unknown] loperamide 2 mg capsule 4 mg PO QID #240 cap 06/04/20 [Last Taken Unknown] ARIPiprazole [Abilify] 5 mg PO HS 07/16/20 [Last Taken Unknown] Bupropion HCl [Bupropion Xl] 300 mg PO DAILY 07/16/20 [Last Taken Unknown] Cholestyramine/Aspartame [Cholestyramine Light Packet] 4 gm PO BID 07/16/20 [Last Taken Unknown] Cyclobenzaprine HCl 10 mg PO QID 07/16/20 [Last Taken Unknown] Dicyclomine HCl 20 mg PO QID 07/16/20 [Last Taken Unknown] Duloxetine HCl 60 mg PO BID 07/16/20 [Last Taken Unknown] Fluconazole [Diflucan] 200 mg PO DAILY 07/16/20 [Last Taken Unknown] Pregabalin [Lyrica] 100 mg PO TID 07/16/20 [Last Taken Unknown] Topiramate [Topamax] 25 mg PO BID 07/16/20 [Last Taken Unknown] diphenhydrAMINE HCL [Benadryl] 25 - 50 mg PO HS PRN 07/16/20 [Last Taken Unknown] traZODone HCL [Trazodone HCl] 300 mg PO HS 07/16/20 [Last Taken Unknown] liraglutide 0.6 mg/0.1 mL (18 mg/3 mL) subcutaneous pen injector 1.8 mg SUBCUT DAILY #9 ml 07/18/20 [Last Taken Unknown] oxycodone-acetaminophen 5 mg-325 mg tablet 1 tab PO Q6H PRN #10 tab 07/23/20 [Last Taken Unknown] Exam - Exam Vital Signs: Vital Signs - Last Taken Temp 36.0 C 07/25/20 19:44 Pulse 99 07/25/20 19:44 Resp 20 07/25/20 19:44 BP 125/61 07/25/20 19:44 Pulse Ox 93 07/25/20 19:44 Constitutional: Present: Alert, Oriented x3, Cooperative ENT Exam: Present: hearing grossly normal Eye Exam: bilateral eye: normal inspection Respiratory: Present: lungs clear, normal breath sounds, no respiratory distress Cardiovascular/Chest: Present: regular rate, rhythm, systolic murmur - 3+ Peripheral Pulses: radial (R): 2+, radial (L): 2+ Abdomen: Present: Normal bowel sounds, soft, nontender, nondistended, no rebound tenderness Skin Exam: Present: normal color, warm/dry, no cyanosis Neurologic: Present: alert, normal mood/affect, oriented x 3 Appearance: Present: appropriate appearance, appropriate insight Eye contact: Present: cooperative, good eye contact, normal speech Thoughts: Present: normal thought pattern, no apparent hallucination Diagnostic Studies: Abnormal Lab Results 07/25/20 07/25/20 07/25/20 Range/Units 14:05 14:05 14:40 WBC 15.8 H (4.0-10.5) K/mm3 RBC 3.71 L (4.7-6.0) M/mm3 Hgb 12.5 L (13.5-18.0) gm/dL Hct 37.8 L (42.0-52.0) % MCV 101.9 H (78-100) fl MCH 33.7 H (27-31) pg RDW 17.7 H (11.5-14.0) % Plt Count 478 H (150-450) K/mm3 Immature Gran % (Auto) 0.50 H (0.001-0.429) % Immature Gran # (Auto) 0.08 H (0.000-0.0310) K/mm3 Neutrophils % 84.7 H (42-75.0) % Lymphocytes % 8.1 L (20-51) % Neutrophils # 13.4 H (1.3-6.0) K/mm3 Lymphocytes # 1.28 L (1.5-3.5) k/mm3 pO2 (23.3-35.1) mmHg HCO3 (22.0-29.0) mmol/L Total CO2 (22.0-26.0) mmol/L Base Excess (-2.0-3.0) mmol/L VBG O2 Saturation (94.0-98.0) % Sodium 122 L (132-142) mmol/L Chloride 93 L (97-106) mmol/L Carbon Dioxide 20.3 L (24-32.6) mmol/L Creatinine 1.49 H D (0.4-1.4) mg/dL Est GFR (Non-Af Amer) 50 L D (60-130) mL/min Albumin 3.0 L (3.4-5.0) gm/dl Lipase 1139 H (73-393) U/L Urine Glucose (UA) >=1000 H (NEGATIVE) mg/dL 07/25/20 Range/Units 15:05 WBC (4.0-10.5) K/mm3 RBC (4.7-6.0) M/mm3 Hgb (13.5-18.0) gm/dL Hct (42.0-52.0) % MCV (78-100) fl MCH (27-31) pg RDW (11.5-14.0) % Plt Count (150-450) K/mm3 Immature Gran % (Auto) (0.001-0.429) % Immature Gran # (Auto) (0.000-0.0310) K/mm3 Neutrophils % (42-75.0) % Lymphocytes % (20-51) % Neutrophils # (1.3-6.0) K/mm3 Lymphocytes # (1.5-3.5) k/mm3 pO2 64.9 H (23.3-35.1) mmHg HCO3 18.9 L (22.0-29.0) mmol/L Total CO2 20.0 L (22.0-26.0) mmol/L Base Excess -6.1 L (-2.0-3.0) mmol/L VBG O2 Saturation 91.8 L (94.0-98.0) % Sodium (132-142) mmol/L Chloride (97-106) mmol/L Carbon Dioxide (24-32.6) mmol/L Creatinine (0.4-1.4) mg/dL Est GFR (Non-Af Amer) (60-130) mL/min Albumin (3.4-5.0) gm/dl Lipase (73-393) U/L Urine Glucose (UA) (NEGATIVE) mg/dL Laboratory Results WBC 15.8 K/mm3 (4.0-10.5) H 07/25/20 14:05 RBC 3.71 M/mm3 (4.7-6.0) L 07/25/20 14:05 Hgb 12.5 gm/dL (13.5-18.0) L 07/25/20 14:05 Hct 37.8 % (42.0-52.0) L 07/25/20 14:05 MCV 101.9 fl (78-100) H 07/25/20 14:05 MCH 33.7 pg (27-31) H 07/25/20 14:05 MCHC 33.1 g/dl (32-36) 07/25/20 14:05 RDW 17.7 % (11.5-14.0) H 07/25/20 14:05 Plt Count 478 K/mm3 (150-450) H 07/25/20 14:05 MPV 9.3 fl (8-11.3) 07/25/20 14:05 Immature Gran % (Auto) 0.50 % (0.001-0.429) H 07/25/20 14:05 Immature Gran # (Auto) 0.08 K/mm3 (0.000-0.0310) H 07/25/20 14:05 Neutrophils % 84.7 % (42-75.0) H 07/25/20 14:05 Lymphocytes % 8.1 % (20-51) L 07/25/20 14:05 Monocytes % 6.1 % (0.0-9) 07/25/20 14:05 Eosinophils % 0.3 % (0.0-3.0) 07/25/20 14:05 Basophils % 0.3 % (0.0-1.0) 07/25/20 14:05 Nucleated RBC % 0.0 k/mm3 (0-1) 07/25/20 14:05 Neutrophils # 13.4 K/mm3 (1.3-6.0) H 07/25/20 14:05 Lymphocytes # 1.28 k/mm3 (1.5-3.5) L 07/25/20 14:05 Monocytes # 1.0 k/mm3 (0.0-1.0) 07/25/20 14:05 Eosinophils # 0.1 k/mm3 (0.0-0.7) 07/25/20 14:05 Absolute Basophils 0.0 k/mm3 (0.0-0.1) 07/25/20 14:05 pCO2 35.9 mmHg (35.0-48.0) 07/25/20 15:05 pO2 64.9 mmHg (23.3-35.1) H 07/25/20 15:05 HCO3 18.9 mmol/L (22.0-29.0) L 07/25/20 15:05 Total CO2 20.0 mmol/L (22.0-26.0) L 07/25/20 15:05 Base Excess -6.1 mmol/L (-2.0-3.0) L 07/25/20 15:05 ABG pH 7.34 (7.32-7.43) 07/25/20 15:05 VBG O2 Saturation 91.8 % (94.0-98.0) L 07/25/20 15:05 Sodium 122 mmol/L (132-142) L 07/25/20 14:05 Plasma Sodium 137 mmol/L (130-142) 07/25/20 14:05 Potassium 4.6 mmol/L (3.4-4.6) D 07/25/20 14:05 Chloride 93 mmol/L (97-106) L 07/25/20 14:05 Carbon Dioxide 20.3 mmol/L (24-32.6) L 07/25/20 14:05 Anion Gap 13.3 mmol/L (6.8-13.8) 07/25/20 14:05 BUN 19 mg/dL (6-23) 07/25/20 14:05 Creatinine 1.49 mg/dL (0.4-1.4) H D 07/25/20 14:05 Est GFR (Non-Af Amer) 50 mL/min (60-130) L D 07/25/20 14:05 BUN/Creatinine Ratio 12.8 (9.0-21.6) 07/25/20 14:05 Random Glucose mg/dL (70-110) 07/25/20 14:05 Calcium 9.4 mg/dL (7.9-10.9) 07/25/20 14:05 Calcium Adj for Albumin 9.9 mg/dL (8.4-10.2) 07/25/20 14:05 Total Bilirubin 0.4 mg/dL (0.0-1.1) 07/25/20 14:05 AST 12 U/L (0-48) 07/25/20 14:05 ALT 25 U/L (19-67) 07/25/20 14:05 Alkaline Phosphatase 112 U/L (50-170) 07/25/20 14:05 Total Protein 7.2 gm/dL (6.2-8.2) 07/25/20 14:05 Albumin 3.0 gm/dl (3.4-5.0) L 07/25/20 14:05 Lipase 1139 U/L (73-393) H 07/25/20 14:05 Urine Color Pale yellow 07/25/20 14:40 Urine Appearance Clear (CLEAR) 07/25/20 14:40 Urine pH 5.0 pH (5.0-7.0) 07/25/20 14:40 Ur Specific [place] <=1.005 SP.GR. (1.005-1.030) 07/25/20 14:40 Urine Protein Negative mg/dL (NEGATIVE) 07/25/20 14:40 Urine Glucose (UA) >=1000 mg/dL (NEGATIVE) H 07/25/20 14:40 Urine Ketones Negative mg/dL (NEGATIVE) 07/25/20 14:40 Urine Blood Negative /ul (NEGATIVE) 07/25/20 14:40 Urine Nitrate Negative (NEGATIVE) 07/25/20 14:40 Urine Bilirubin Negative mg/dl (NEGATIVE) 07/25/20 14:40 Urine Urobilinogen Normal EU/dl (NORMAL) 07/25/20 14:40 Ur Leukocyte Esterase Negative /ul (NEGATIVE) 07/25/20 14:40 Urine RBC None seen /hpf (0-5) 07/25/20 14:40 Urine WBC None seen /hpf (0-5) 07/25/20 14:40 Ur Epithelial Cells Trace /hpf (0-5) 07/25/20 14:40 Urine Bacteria None seen (NONE) 07/25/20 14:40 Urine Culture Comments No culture indicated 07/25/20 14:40 Serum Ketones Negative (NEGATIVE) 07/25/20 14:05 SARS-CoV-2 (PCR) Not detected (NotDetected) 07/25/20 17:57 Assessment/Plan - Narrative Narrative: Chilango is a 64 yo male with: 1) Acute Pancreatitis. His lipase is elevated at 1100. He does not have abdominal pain but he does have back pain similar to his last episode of pancreatitis. Will make NPO and give fluids. He denies alcohol or fatty foods. Potential HCTZ side effect but he has been on this. No gall bladder symptoms or labs concerning for obstruction. Will control pain with dilaudid for fernanda kthrough pain and will schedule toradol. 2) Liver abnormality. Prior plans were to get outpatient MRCP vs MRI of abdomen with and without contrast to further evaluate. 3) Splenic Infarct. Likely from splenic artery thrombus. Literature recommends against anticoagulation for this. - Assessment/Plan (1) Pancreatitis Problem: Acute Qualifiers: Chronicity: acute Pancreatitis type: unspecified pancreatitis type Acute pancreatitis complication: unspecified Qualified Code(s): K85.90 - Acute pancreatitis without necrosis or infection, unspecified (2) Splenic vein thrombosis Problem: Chronic (3) Hyperglycemia Problem: Acute (4) Abnormal abdominal CT scan Problem: Acute (5) Iliac artery occlusion, left Problem: Chronic (6) Abnormal CT of liver Problem: Acute (7) Diabetes mellitus, type II Problem: Chronic Qualifiers: Diabetes mellitus extermination inspector insulin use: without mcc use Diabetes mellitus complication status: with hyperglycemia Qualified Code(s): E11.65 - Type 2 diabetes mellitus with hyperglycemia
[2020-07-25] MEDS: NORMAL SALINE 1,000 ML IV PRN (22:30)
[2020-07-25] MEDS: HYDROmorphone HCL 1 MG/ML DISP.SYRIN IV PRN (23:02)
[2020-07-25] MEDS: KETOROLAC TROMETHAMINE 30 MG/ML VIAL IV SCH (23:05)
[2020-07-26] MEDS: KETOROLAC TROMETHAMINE 30 MG/ML VIAL IV SCH ×4 (04:18→22:55)
[2020-07-26] MEDS: NORMAL SALINE 1,000 ML IV PRN ×2 (06:30→20:09)
[2020-07-26 07:16] LABS: Hematocrit 33.8 % (42.0-52.0); Hemoglobin 11.2 gm/dL (13.5-18.0); Mean Cell Volume 100.6 fl (78-100); Mean Corpuscular Hemoglobin 33.3 pg (27-31); Mean Corpuscular Hgb Conc 33.1 g/dl (32-36); Mean Platelet Volume 8.7 fl (8-11.3); Neutrophil # 9.4 K/mm3 (1.3-6.0); Neutrophil % 72.4 % (42-75.0); Platelet Count 391 K/mm3 (150-450); Red Blood Count 3.36 M/mm3 (4.7-6.0); Red Cell Distribution Width 17.4 % (11.5-14.0); White Blood Count 12.9 K/mm3 (4.0-10.5)
--- NOTE | 2020-07-26 07:38 | PN ---
Subjective - Date and Time Seen Date: 07/26/20 Time: 06:15 Subjective Narrative: This is a 64 y/o man with diabetes who was admitted to the hospital yesterday with pancreatitis and an elevated blood sugar. This is the second episode of pancreatitis in a month. The first time he stayed in the hospital overnight. His lipase was in the mid 500s. His CT scan then showed evidence of acute pancreatitis and also gallstones. This time he reported identical symptoms starting the day before yesterday. They were severe right low back and flank pain with no appetite. Although he has chronic low back pain, this was different. He had no nausea or vomiting. They intensified the night before last. He almost went to the ER then, but instead came to his hospital follow up appt in my office yesterday afternoon. I examined him in the office, thought he might have recurrent pancreatitis, so sent him to the ER where he was diagnosed with pancreatitis and admitted. This morning he is better, though not back to normal. This time his CT scan was again abnormal, had multiple abnormalities, including acute pancreatitis. No gallstones were reported, but his gallbladder was contracted. This time his lipase was over 1000 and his blood sugar was 1049. He was given one sc dose of insulin and two iv doses. His blood sugar improved. It is now in the 200s by fingerstick. Other blood work from this morning is not available. I'm particularly concerned about him this time because it is recurrent pancreatitis in less than a month. His first CT showed gallstones, this one did not. I plan to do a gallbladder ultrasound today. If he in fact has gallstones he may be passing them, resulting in pancreatitis. Both abdominal CTs showed abnormalities with unknown implications and with each one the radiologist recommended an abdominal MRI. Because this is his second admission for pancreatitis, I think we should proceed with the MRI now. I'm also concerned about his blood sugar of over 1000, although it has improved now. We will follow his sugar closely and institute daily insulin. The dose will need to be adjusted. We will continue IV fluids and start oral clear liquids. We will monitor labs and adjust accordingly. When he was in the office he and his reported he ran out of all of his meds except for 3 about one month ago. Both CT scans showed splenic vein thrombosis, but this appears to be old and chronic. His CT scan this time showed: 1. Persistent acute pancreatitis. No nonenhancing pancreas to suggest necrotizing pancreatitis. No walled off fluid collection. 2. Splenic vein thrombosis again visualized. New peripheral hypodensity in the spleen which likely represents a new small splenic infarct. 3. Persistent hypodensities within the right hepatic lobe which are indeterminate. Differentials are broad and include potential liver abscesses, or underlying neoplasm, among other possibilities. Recommend further evaluation with an MRI of the liver following hepatic mass protocol with and without contrast. 4. Severe atherosclerosis of the abdominal aorta and its branches with complete occlusion of the left common iliac artery and segmental stenosis throughout the right common and external iliac arteries Objective - Review of Systems Generalized/Overall Review: Reports: Malaise, Weight loss EENTM: Reports: No Symptoms Reported Respiratory: Reports: Cough - chronic. Denies: Shortness of Breath, Orthopnea, Wheezing Cardiac: Reports: No Symptoms Reported Abdominal: Reports: Other - right flank pain. anorexia. right low back and flank pain are improved, but he is receiving as needed IV dilaudid. Genitourinary Symptoms: Reports: Frequency - drinks lots of water Musculoskeletal Complaints: Reports: Back Pain Neurological: Reports: Weakness Skin: Reports: No Symptoms Reported Endocrine: Reports: No Symptoms Reported Misc: All systems neg except as marked - Vitals Vitals: Last Vital Signs Temp 36.3 C 07/26/20 06:31 Pulse 96 07/26/20 06:31 Resp 16 07/26/20 06:31 BP 135/72 07/26/20 06:31 Pulse Ox 94 07/26/20 06:31 - Abnormal Lab Findings Abnormal Lab Findings: Abnormal Lab Results 07/25/20 07/25/20 07/25/20 Range/Units 14:05 14:05 14:40 WBC 15.8 H (4.0-10.5) K/mm3 RBC 3.71 L (4.7-6.0) M/mm3 Hgb 12.5 L (13.5-18.0) gm/dL Hct 37.8 L (42.0-52.0) % MCV 101.9 H (78-100) fl MCH 33.7 H (27-31) pg RDW 17.7 H (11.5-14.0) % Plt Count 478 H (150-450) K/mm3 Immature Gran % (Auto) 0.50 H (0.001-0.429) % Immature Gran # (Auto) 0.08 H (0.000-0.0310) K/mm3 Neutrophils % 84.7 H (42-75.0) % Lymphocytes % 8.1 L (20-51) % Neutrophils # 13.4 H (1.3-6.0) K/mm3 Lymphocytes # 1.28 L (1.5-3.5) k/mm3 pO2 (23.3-35.1) mmHg HCO3 (22.0-29.0) mmol/L Total CO2 (22.0-26.0) mmol/L Base Excess (-2.0-3.0) mmol/L VBG O2 Saturation (94.0-98.0) % Sodium 122 L (132-142) mmol/L Chloride 93 L (97-106) mmol/L Carbon Dioxide 20.3 L (24-32.6) mmol/L Creatinine 1.49 H D (0.4-1.4) mg/dL Est GFR (Non-Af Amer) 50 L D (60-130) mL/min Random Glucose 1042 H (70-110) mg/dL Albumin 3.0 L (3.4-5.0) gm/dl Lipase 1139 H (73-393) U/L Urine Glucose (UA) >=1000 H (NEGATIVE) mg/dL 07/25/20 Range/Units 15:05 WBC (4.0-10.5) K/mm3 RBC (4.7-6.0) M/mm3 Hgb (13.5-18.0) gm/dL Hct (42.0-52.0) % MCV (78-100) fl MCH (27-31) pg RDW (11.5-14.0) % Plt Count (150-450) K/mm3 Immature Gran % (Auto) (0.001-0.429) % Immature Gran # (Auto) (0.000-0.0310) K/mm3 Neutrophils % (42-75.0) % Lymphocytes % (20-51) % Neutrophils # (1.3-6.0) K/mm3 Lymphocytes # (1.5-3.5) k/mm3 pO2 64.9 H (23.3-35.1) mmHg HCO3 18.9 L (22.0-29.0) mmol/L Total CO2 20.0 L (22.0-26.0) mmol/L Base Excess -6.1 L (-2.0-3.0) mmol/L VBG O2 Saturation 91.8 L (94.0-98.0) % Sodium (132-142) mmol/L Chloride (97-106) mmol/L Carbon Dioxide (24-32.6) mmol/L Creatinine (0.4-1.4) mg/dL Est GFR (Non-Af Amer) (60-130) mL/min Random Glucose (70-110) mg/dL Albumin (3.4-5.0) gm/dl Lipase (73-393) U/L Urine Glucose (UA) (NEGATIVE) mg/dL - Exam Constitutional: Present: Alert, Cooperative, Well developed, Elderly, Looks Older than stated age - looks chronically ill. Absent: Well nourished ENT Exam: Present: normal ENT inspection, hearing grossly normal Neck: Present: normal inspection, trachea midline. Absent: lymphadenopathy (R), lymphadenopathy (L), thyromegaly Breasts: Present: Other - male Respiratory: Present: lungs clear, decreased breath sounds Cardiovascular/Chest: Present: regular rate, rhythm, no edema, no gallop, no JVD, no murmur Abdomen: Present: Normal bowel sounds, soft, nontender, nondistended, no hepatospenomegaly, no masses, other - tender right low back and right flank /Rectal: Present: Exam deferred Extremity: Present: no pedal edema, other - walks with a limp and a cane Skin Exam: Present: normal color, warm/dry, no cyanosis Lymphatic: Present: no adenopathy Neurologic: Present: abnormal gait, other - disoriented to time Appearance: Present: disheveled, impaired insight Eye contact: Present: cooperative, good eye contact. Absent: normal speech Thoughts: Absent: normal thought pattern, normal mood /affect Assessment/Plan - Problems/Diagnosis (1) Pancreatitis Problem: Acute Qualifiers: Chronicity: acute Pancreatitis type: unspecified pancreatitis type Acute pancreatitis complication: no infection or necrosis Qualified Code(s): K85.90 - Acute pancreatitis without necrosis or infection, unspecified Narrative: recurrent. may have gallstones. may be the reason for his pancreatitis. will do gb us. (2) Abnormal abdominal CT scan Problem: Acute Narrative: acute and chronic. multiple abnormalities including pancreatitis. probable new splenic infarct uncertain liver abnormality. will do abdominal MRI. (3) Gallstones Problem: Chronic Narrative: seen on first ct scan. not on this one, but gb reported contracted. will do gb us (4) Hyperglycemia Problem: Acute Narrative: bs 1049 on admission. will start daily insulin which will need adjustment. will continue iv saline. (5) Atherosclerosis Problem: Chronic (6) Diabetes mellitus, type II Problem: Chronic Qualifiers: Diabetes mellitus intermediate accountant insulin use: without mcc use Diabetes mellitus complication status: with hyperglycemia Qualified Code(s): E11.65 - Type 2 diabetes mellitus with hyperglycemia (7) Splenic vein thrombosis Problem: Chronic Narrative: old and asymptomatic. for this reason will not anticoagulate.
[2020-07-26 07:59] LABS: Albumin * 2.3 gm/dl (3.4-5.0); Anion Gap 12.4 mmol/L (6.8-13.8); BUN/Creatinine Ratio 15.6 (9.0-21.6); Bilirubin, Total 0.4 mg/dL (0.0-1.1); Ca. Corrected For Albumin 9.5 mg/dL (8.4-10.2); Calcium * 8.5 mg/dL (7.9-10.9); Carbon Dioxide 21.2 mmol/L (24-32.6); Potassium 3.6 mmol/L (3.4-4.6); Total Protein 5.9 gm/dL (6.2-8.2)
[2020-07-26] MEDS: ENOXAPARIN SODIUM 40 MG/0.4 ML SYRG SC SCH (08:06)
[2020-07-26] MEDS: INSULIN GLARGINE,HUM.REC.ANLOG 100 UNITS/ML VIAL SC SCH (08:07)
[2020-07-26] MEDS: INSULIN LISPRO 100 UNITS/ML VIAL SC SCH ×3 (12:16→20:26)
--- NOTE | 2020-07-26 12:37 | PN ---
Progess Note - Interim Date: 07/26/20 Time: 12:35 Narrative: 07/26/20 12:35 Lipase improving, but not yet normal. wbc count improving, but not yet normal. bs improving, not yet normal, insulin started. sodium now normal. the plan is to follow and continue present treatment. I think he needs an outpatient GI referral.
--- NOTE | 2020-07-26 14:52 | PN ---
Progess Note - Interim Date: 07/26/20 Time: 14:50 Narrative: 07/26/20 14:50 MRI shows only hemangiomas of the liver. Needs a followup CT scan in 6 months as outpatient. We will therefor treat this as idiopathic recurrent acute pancreatitis.
[2020-07-27] MEDS: HYDROmorphone HCL 1 MG/ML DISP.SYRIN IV PRN ×2 (01:59→06:42)
[2020-07-27] MEDS: KETOROLAC TROMETHAMINE 30 MG/ML VIAL IV SCH ×3 (04:52→16:11)
[2020-07-27] MEDS: INSULIN LISPRO 100 UNITS/ML VIAL SC SCH ×4 (06:57→20:46)
[2020-07-27 07:37] LABS: Hemoglobin 12.2 gm/dL (13.5-18.0); Mean Cell Volume 101.6 fl (78-100); Mean Corpuscular Hemoglobin 33.5 pg (27-31); Mean Platelet Volume 9.4 fl (8-11.3); Neutrophil # 6.4 K/mm3 (1.3-6.0); Neutrophil % 68.5 % (42-75.0); Platelet Count 438 K/mm3 (150-450); Red Blood Count 3.64 M/mm3 (4.7-6.0); Red Cell Distribution Width 17.6 % (11.5-14.0); White Blood Count 9.4 K/mm3 (4.0-10.5)
[2020-07-27 08:02] LABS: Albumin * 2.5 gm/dl (3.4-5.0); Anion Gap 15.7 mmol/L (6.8-13.8); BUN/Creatinine Ratio 11.4 (9.0-21.6); Bilirubin, Total 0.3 mg/dL (0.0-1.1); Ca. Corrected For Albumin 9.7 mg/dL (8.4-10.2); Calcium * 8.8 mg/dL (7.9-10.9); Carbon Dioxide 19.9 mmol/L (24-32.6); Potassium 3.6 mmol/L (3.4-4.6); Total Protein 5.9 gm/dL (6.2-8.2)
[2020-07-27] MEDS: ENOXAPARIN SODIUM 40 MG/0.4 ML SYRG SC SCH (08:07)
[2020-07-27] MEDS: buPROPion HCL 150 MG TAB.SR.24H PO SCH (09:50)
[2020-07-27] MEDS: LOPERAMIDE HCL 2 MG CAPSULE PO SCH ×4 (09:50→20:44)
[2020-07-27] MEDS: CHOLESTYRAMINE/ASPARTAME 4 GM PACKET PO SCH ×2 (09:50→20:44)
[2020-07-27] MEDS: amLODIPine BESYLATE 10 MG TABLET PO SCH (09:50)
[2020-07-27] MEDS: PANTOPRAZOLE SODIUM 40 MG TABLET.EC PO SCH (09:50)
[2020-07-27] MEDS: DULoxetine HCL 20 MG CAPSULE.SA PO SCH ×2 (09:50→20:45)
[2020-07-27] MEDS: CYCLOBENZAPRINE HCL 10 MG TABLET PO SCH (09:51)
[2020-07-27] MEDS: INSULIN GLARGINE,HUM.REC.ANLOG 100 UNITS/ML VIAL SC SCH (09:52)
[2020-07-27] MEDS: PREGABALIN 50 MG CAPSULE PO SCH ×2 (13:12→16:12)
[2020-07-27] MEDS: DIPHENOXYLATE HCL/ATROP SULF 2.5 MG TABLET PO SCH ×3 (13:12→20:56)
[2020-07-27] MEDS: oxyCODONE HCL/ACETAMINOPHEN 1 TAB TABLET PO PRN (14:54)
[2020-07-27] MEDS: rOPINIRole HCL 1 MG TABLET PO SCH (20:45)
[2020-07-27] MEDS: TOPIRAMATE 50 MG TABLET PO SCH (20:53)
[2020-07-27] MEDS ORDERED: ARIPiprazole 5 MG TABLET PO SCH (21:00)
[2020-07-27] MEDS ORDERED: traZODone HCL 150 MG TABLET PO SCH (21:00)
[2020-07-27] MEDS ORDERED: NICOTINE 21 MG PATC TD SCH (21:00)
[2020-07-27] MEDS ORDERED: INSULIN GLARGINE,HUM.REC.ANLOG 100 UNITS/ML VIAL SC SCH (21:00)
--- NOTE | 2020-07-27 23:16 | PN ---
Subjective - Date and Time Seen Date: 07/27/20 Time: 09:30 Subjective Narrative: Chialngo reports feeling better today. Does not have abdominal pain or nausea. Appetite is improved. No fever or chills. Objective - Vitals Vitals: Last Vital Signs Temp 36.6 C 07/27/20 18:26 Pulse 95 07/27/20 18:26 Resp 20 07/27/20 18:26 BP 116/64 07/27/20 18:26 Pulse Ox 96 07/27/20 18:26 - Abnormal Lab Findings Abnormal Lab Findings: Abnormal Lab Results 07/27/20 07/27/20 Range/Units 07:20 07:20 RBC 3.64 L (4.7-6.0) M/mm3 Hgb 12.2 L (13.5-18.0) gm/dL Hct 37.0 L (42.0-52.0) % MCV 101.6 H (78-100) fl MCH 33.5 H (27-31) pg RDW 17.6 H (11.5-14.0) % Neutrophils # 6.4 H (1.3-6.0) K/mm3 Carbon Dioxide 19.9 L (24-32.6) mmol/L Anion Gap 15.7 H (6.8-13.8) mmol/L Random Glucose 211 H (70-110) mg/dL Total Protein 5.9 L (6.2-8.2) gm/dL Albumin 2.5 L (3.4-5.0) gm/dl Lipase 753 H (73-393) U/L - Exam Constitutional: Present: Alert, Oriented x3, Cooperative ENT Exam: Present: hearing grossly normal Respiratory: Present: lungs clear, normal breath sounds, no respiratory distress Cardiovascular/Chest: Present: regular rate, rhythm Abdomen: Present: Normal bowel sounds, soft, nontender, nondistended, no rebound tenderness Skin Exam: Present: normal color, warm/dry, no cyanosis Appearance: Present: appropriate appearance, appropriate insight Eye contact: Present: cooperative, good eye contact, normal speech Assessment/Plan Plan Narrative: Pancreatitis improving, will advance diet. Reviewed medications. He is on victoza which can cause pancreatitis. Will discontinue this medication and he will remain on insulin for diabetes. May be able to discharge to home tomorrow if doing well with diet advancement. - Problems/Diagnosis (1) Pancreatitis Problem: Acute Qualifiers: Chronicity: acute Pancreatitis type: unspecified pancreatitis type Acute pancreatitis complication: unspecified Qualified Code(s): K85.90 - Acute pancreatitis without necrosis or infection, unspecified (2) Splenic vein thrombosis Problem: Chronic (3) Hyperglycemia Problem: Acute (4) Abnormal abdominal CT scan Problem: Acute (5) Iliac artery occlusion, left Problem: Chronic (6) Abnormal CT of liver Problem: Acute (7) Diabetes mellitus, type II Problem: Chronic Qualifiers: Diabetes mellitus half-way insulin use: without half-way use Diabetes mellitus complication status: with hyperglycemia Qualified Code(s): E11.65 - Type 2 diabetes mellitus with hyperglycemia
[2020-07-28] MEDS: oxyCODONE HCL/ACETAMINOPHEN 1 TAB TABLET PO PRN (05:00)
[2020-07-28] MEDS: INSULIN LISPRO 100 UNITS/ML VIAL SC SCH ×2 (07:25→12:01)
[2020-07-28] MEDS: PANTOPRAZOLE SODIUM 40 MG TABLET.EC PO SCH (07:26)
[2020-07-28] MEDS: ENOXAPARIN SODIUM 40 MG/0.4 ML SYRG SC SCH (07:26)
[2020-07-28] MEDS: DULoxetine HCL 20 MG CAPSULE.SA PO SCH (08:21)
[2020-07-28] MEDS: TOPIRAMATE 50 MG TABLET PO SCH (08:22)
[2020-07-28] MEDS: rOPINIRole HCL 1 MG TABLET PO SCH (08:22)
[2020-07-28] MEDS: CYCLOBENZAPRINE HCL 10 MG TABLET PO SCH (08:22)
[2020-07-28] MEDS: LOPERAMIDE HCL 2 MG CAPSULE PO SCH (08:22)
[2020-07-28] MEDS: amLODIPine BESYLATE 10 MG TABLET PO SCH (08:22)
[2020-07-28] MEDS: CHOLESTYRAMINE/ASPARTAME 4 GM PACKET PO SCH (08:22)
[2020-07-28] MEDS: buPROPion HCL 150 MG TAB.SR.24H PO SCH (08:22)
[2020-07-28] MEDS: DIPHENOXYLATE HCL/ATROP SULF 2.5 MG TABLET PO SCH (08:23)
[2020-07-28] MEDS: PREGABALIN 50 MG CAPSULE PO SCH (08:24)
[2020-07-28 10:44] LABS: Hematocrit 34.2 % (42.0-52.0); Hemoglobin 11.5 gm/dL (13.5-18.0); Mean Cell Volume 100.6 fl (78-100); Mean Corpuscular Hemoglobin 33.8 pg (27-31); Mean Corpuscular Hgb Conc 33.6 g/dl (32-36); Mean Platelet Volume 9.8 fl (8-11.3); Neutrophil # 5.9 K/mm3 (1.3-6.0); Neutrophil % 76.9 % (42-75.0); Platelet Count 406 K/mm3 (150-450); Red Cell Distribution Width 17.3 % (11.5-14.0); White Blood Count 7.7 K/mm3 (4.0-10.5)
--- NOTE | 2020-07-28 10:52 | DS ---
(1) Pancreatitis Problem: Resolved Qualifiers: Chronicity: acute Pancreatitis type: unspecified pancreatitis type Acute pancreatitis complication: unspecified Qualified Code(s): K85.90 - Acute pancreatitis without necrosis or infection, unspecified (2) Splenic vein thrombosis Problem: Chronic (3) Hyperglycemia Problem: Acute (4) Abnormal abdominal CT scan Problem: Acute (5) Iliac artery occlusion, left Problem: Chronic (6) Abnormal CT of liver Problem: Acute (7) Diabetes mellitus, type II Problem: Chronic Qualifiers: Diabetes mellitus senior living insulin use: without senior living use Diabetes mellitus complication status: with hyperglycemia Qualified Code(s): E11.65 - Type 2 diabetes mellitus with hyperglycemia Date of Discharge:: 07/28/20 Hospital Course: Chilango is a 64 male that was admitted for acute pancreatitis. He was treated with bowel rest and fluids. His symptoms improved and his diet was advanced and he tolerated this well. His blood sugars were significantly elevated from diabetes and he was started on insulin. He was previously on Victoza which can cause pancreatitis. This will be discontinued and he will remain on insulin only. Procedures Performed: none Results and Findings: Lab Pending Results 07/25/20 14:05: WBC 15.8 H, RBC 3.71 L, Hgb 12.5 L, Hct 37.8 L, MCV 101.9 H, MCH 33.7 H, MCHC 33.1, RDW 17.7 H, Plt Count 478 H, MPV 9.3, Immature Gran % (Auto) 0.50 H, Immature Gran # (Auto) 0.08 H, Neutrophils % 84.7 H, Lymphocytes % 8.1 L, Monocytes % 6.1, Eosinophils % 0.3, Basophils % 0.3, Nucleated RBC % 0.0, Neutrophils # 13.4 H, Lymphocytes # 1.28 L, Monocytes # 1.0, Eosinophils # 0.1, Absolute Basophils 0.0 07/25/20 14:05: Sodium 122 L, Plasma Sodium 137, Potassium 4.6 D, Chloride 93 L, Carbon Dioxide 20.3 L, Anion Gap 13.3, BUN 19, Creatinine 1.49 H D, Est GFR (Non-Af Amer) 50 L D, BUN/Creatinine Ratio 12.8, Random Glucose 1042 H, Calcium 9.4, Calcium Adj for Albumin 9.9, Total Bilirubin 0.4, AST 12, ALT 25, Alkaline Phosphatase 112, Total Protein 7.2, Albumin 3.0 L, Lipase 1139 H 07/25/20 14:05: Serum Ketones Negative 07/25/20 14:40: Urine Color Pale yellow, Urine Appearance Clear, Urine pH 5.0, Ur Specific [place] <=1.005, Urine Protein Negative, Urine Glucose (UA) >=1000 H, Urine Ketones Negative, Urine Blood Negative, Urine Nitrate Negative, Urine Bilirubin Negative, Urine Urobilinogen Normal, Ur Leukocyte Esterase Negative, Urine RBC None seen, Urine WBC None seen, Ur Epithelial Cells Trace, Urine Bacteria None seen, Urine Culture Comments No culture indicated 07/25/20 15:05: pCO2 35.9, pO2 64.9 H, HCO3 18.9 L, Total CO2 20.0 L, Base Excess -6.1 L, ABG pH 7.34, VBG O2 Saturation 91.8 L 07/25/20 17:57: SARS-CoV-2 (PCR) Not detected 07/26/20 07:04: WBC 12.9 H, RBC 3.36 L, Hgb 11.2 L, Hct 33.8 L, MCV 100.6 H, MCH 33.3 H, MCHC 33.1, RDW 17.4 H, Plt Count 391, MPV 8.7, Immature Gran % (Auto) 0.50 H, Immature Gran # (Auto) 0.07 H, Neutrophils % 72.4, Lymphocytes % 18.5 L, Monocytes % 7.1, Eosinophils % 1.2, Basophils % 0.3, Nucleated RBC % 0.0, Neutrophils # 9.4 H, Lymphocytes # 2.39, Monocytes # 0.9, Eosinophils # 0.2, Absolute Basophils 0.0 07/26/20 07:04: Sodium 134, Plasma Sodium 137, Potassium 3.6 D, Chloride 104, Carbon Dioxide 21.2 L, Anion Gap 12.4, BUN 14, Creatinine 0.90, Est GFR (Non-Af Amer) 90 D, BUN/Creatinine Ratio 15.6, Random Glucose 282 H D, Calcium 8.5, Calcium Adj for Albumin 9.5, Total Bilirubin 0.4, AST 15, ALT 22, Alkaline Phosphatase 83, Total Protein 5.9 L, Albumin 2.3 L, Lipase 674 H 07/27/20 07:20: WBC 9.4 D, RBC 3.64 L, Hgb 12.2 L, Hct 37.0 L, MCV 101.6 H, MCH 33.5 H, MCHC 33.0, RDW 17.6 H, Plt Count 438, MPV 9.4, Immature Gran % (Auto) 0.20, Immature Gran # (Auto) 0.02, Neutrophils % 68.5, Lymphocytes % 22.5, Monocytes % 6.8, Eosinophils % 1.5, Basophils % 0.5, Nucleated RBC % 0.0, Neutrophils # 6.4 H, Lymphocytes # 2.10, Monocytes # 0.6, Eosinophils # 0.1, Absolute Basophils 0.1 07/27/20 07:20: Sodium 134, Plasma Sodium 136, Potassium 3.6, Chloride 102, Carbon Dioxide 19.9 L, Anion Gap 15.7 H, BUN 9, Creatinine 0.79, Est GFR (Non-Af Amer) 105, BUN/Creatinine Ratio 11.4, Random Glucose 211 H, Calcium 8.8, Calcium Adj for Albumin 9.7, Total Bilirubin 0.3, AST 20, ALT 25, Alkaline Phosphatase 97, Total Protein 5.9 L, Albumin 2.5 L, Lipase 753 H Discharge Location: Home Disposition: Home self-care Condition: Good Discharge Activity: Activity as tolerated Discharge Diet: Consistent carbs Referrals: Emir Rodriguez MD [Primary Care Provider] - One Week Problem Oriented Discharge Instructions to Patient/Family: Acute Pancreatitis, [id number] Prescriptions (Any new or edited meds): Insulin Lispro [Humalog] 6 units SC AC #1 vial Transmission Status: Pending to [facility] Insulin Glargine,Hum.rec.anlog [Lantus] 25 units SC HS #1 vial Transmission Status: Pending to [facility] oxyCODONE HCL/ACETAMINOPHEN [Oxycodone-Acetaminophen 5-325] 1 tab PO Q6H PRN #120 tab PRN Reason: Pain Transmission Status: Sent to [facility] Complete Home Medications List: Complete Home Medication List: omeprazole 40 mg capsule,delayed release 40 mg PO DAILY 07/06/18 ropinirole 3 mg tablet 3 mg PO BID 07/06/18 amlodipine 5 mg tablet 10 mg PO DAILY 08/17/19 naloxone 4 mg/actuation nasal spray 4 mg JAM Q2M PRN #2 ea 03/08/20 Nicotine [Nicoderm] 21 mg TD HS #30 patch.td24 05/27/20 diphenoxylate-atropine 2.5 mg-0.025 mg tablet 2 tab PO QID #240 tab 06/04/20 loperamide 2 mg capsule 4 mg PO QID #240 cap 06/04/20 ARIPiprazole [Abilify] 5 mg PO HS 07/16/20 Bupropion HCl [Bupropion Xl] 300 mg PO DAILY 07/16/20 Cholestyramine/Aspartame [Cholestyramine Light Packet] 4 gm PO BID 07/16/20 Cyclobenzaprine HCl 10 mg PO QID 07/16/20 Dicyclomine HCl 20 mg PO QID 07/16/20 Duloxetine HCl 60 mg PO BID 07/16/20 Fluconazole [Diflucan] 200 mg PO DAILY 07/16/20 Pregabalin [Lyrica] 100 mg PO TID 07/16/20 Topiramate [Topamax] 25 mg PO BID 07/16/20 diphenhydrAMINE HCL [Benadryl] 25 - 50 mg PO HS PRN 07/16/20 traZODone HCL [Trazodone HCl] 300 mg PO HS 07/16/20 Cyclobenzaprine HCl 5 mg PO QID 07/26/20 Insulin Glargine,Hum.rec.anlog [Lantus] 25 units SC HS #1 vial 07/28/20 Insulin Lispro [Humalog] 6 units SC AC #1 vial 07/28/20 oxyCODONE HCL/ACETAMINOPHEN [Oxycodone-Acetaminophen 5-325] 1 tab PO Q6H PRN #120 tab 07/28/20
[2020-07-28 11:06] LABS: Albumin * 2.3 gm/dl (3.4-5.0); Anion Gap 13.6 mmol/L (6.8-13.8); BUN/Creatinine Ratio 9.3 (9.0-21.6); Bilirubin, Total 0.1 mg/dL (0.0-1.1); Ca. Corrected For Albumin 9.8 mg/dL (8.4-10.2); Calcium * 8.8 mg/dL (7.9-10.9); Carbon Dioxide 21.2 mmol/L (24-32.6); Potassium 3.8 mmol/L (3.4-4.6); Total Protein 5.5 gm/dL (6.2-8.2)
[2020-07-28 12:59] VITALS: BP 159/85
== END 2020-07-28 12:51 | disposition home or self-care (01) | DRG 439 ==
LOC: ER 12:14 → MS 19:21
PROVIDERS: ADMIT Family Medicine; ATTEND Allergy & Immunology